=== PATIENT | male | born 1945 | race Caucasian/White ===

== ENCOUNTER 2024-01-12 06:08 | Emergency (ER) | payer OTHER, SELFPAY ==
[2024-01-12] VITALS (9 sets, daily range): BP systolic 106–127; BP diastolic 33–98; PULSE 91–97; RESP 19–30; TEMP 36.4; O2SAT 91–100
--- NOTE | ~2024-01-12 | CT_ITS ---
EXAMINATION: CT lumbar spine wo con DATE: 01/12/2024 07:28 INDICATION: Low back pain TECHNIQUE: Computed tomography (CT) of the lumbar spine was performed without intravenous contrast. T he dose-length product was 1225.89 mGy-cm. Automated exposure control and iterative reconstruction te josé miguel were employed. COMPARISON: None FINDINGS: There is grade 2 spondylolisthesis at L5-S1 secondary to spondylolysis. There is disc narro wing at all lumbar levels with vacuum phenomena at L2-3 and L5-S1. Mild levocurvature of the lumbar s pine. No acute fracture. At L3-4 there is an annular disc bulging with endplate hypertrophy as well as facet hypertrophy causi ng bilateral neural foraminal narrowing. At L4-5 there is annular disc bulging with endplate hypertro phy as well as facet hypertrophy causing central canal and bilateral neural foraminal narrowing. At L 5-S1 there is grade 2 spondylolisthesis with facet hypertrophy causing bilateral neural foraminal hi rowing. IMPRESSION: 1. No acute abnormality of the lumbar spine. 2: Severe lumbar spondylosis with grade 2 spondylolisthesis at L5-S1. Reviewed, dictated and finalized at location A.
[2024-01-12] MEDS: ACETAMINOPHEN 500 MG TABLET 1000 MG PO (07:11)
--- NOTE | 2024-01-12 07:24 | ED.FALL ---
HPI - Fall General Chief Complaint: Fall Stated Complaint: fall, back pain Time Seen by Provider: 01/12/24 06:53 History of Present Illness HPI Narrative: This is a 78-year-old male, with history of PE on 4 L of supplemental oxygen at baseline taking Eliquis and DNR comfort, brought in by EMS from his nursing after a fall with back pain. The patient states he is not sure but he slipped out of bed, landing on his bottom. He complains of low back pain. He denies hitting his head or loss of consciousness. He has no other complaints at this time. Related Data Home Medications Medication Instructions Recorded Confirmed acetaminophen 325 mg tablet 325 mg PO ONCE PRN Pain 01/12/24 apixaban 5 mg tablet (Eliquis) 5 mg PO BID 01/12/24 artificial tears(hypromellose) 0.2 1 drp EACH EYE BID PRN Dry Eye(S) 01/12/24 % eye drops loperamide 2 mg tablet 2 mg PO Q4H PRN constipation 01/12/24 losartan 25 mg tablet 25 mg PO DAILY 01/12/24 Allergies Allergy/AdvReac Type Severity Reaction Status Date / Time azithromycin Allergy Unknown Verified 01/12/24 06:18 Review of Systems Review of Systems: CONSTITUTIONAL: Denies fever, chills, or sweats. ENT: Denies rhinorrhea, congestion, sore throat, or otalgia. CARDIOVASCULAR: Denies chest pain, palpitations, or edema. RESPIRATORY: Denies cough or dyspnea. GASTROINTESTINAL: Denies abdominal pain, nausea, vomiting, or diarrhea. GENITOURINARY: . Denies dysuria or hematuria. SKIN: Denies rash or itching. MUSCULOSKELETAL: Low back pain Denies back pain or myalgia. NEUROLOGIC: Denies headache, numbness, dizziness, or weakness. PSYCHIATRIC: Denies anxiety or depression. PMFSH Past Medical History Medical History Hypertension Pulmonary embolism Supplemental oxygen dependent Surgical History Surgical History No significant past surgical history Social History Social History Smoking status: Never smoker Alcohol intake: never Substance use: never Exam Narrative: GENERAL: Well-developed, well-nourished, and in no acute distress. HEAD: Normocephalic, atraumatic. EYES: PERRLA and EOMI. CHEST: Clear to auscultation. No respiratory distress. No wheezes rales or rhonchi HEART: Regular rate and rhythm. No murmur heard. Normal peripheral pulses. ABDOMEN: Soft, nontender, nondistended, normal active bowel sounds. BACK: Mild midline spine tenderness to palpation at approximately L1 without step-off or crepitus. EXTREMITIES: Normal range of motion. No edema. SKIN: Warm, dry, no rash. NEURO: Alert and oriented x3. No focal deficit. Moving all 4 limbs spontaneously PSYCH: Normal mood and affect. Course Course Emergency Course: 08:10 - CT not concerning for fracture dislocation, though does show degenerative disc disease and spondylosis. The patient is DNR and does not want to have any surgical intervention. Will discharge with pain medications and recommendation for primary care follow-up. I discussed the findings and recommendations with the patient. Discussed return and emergency precautions including signs/symptoms of cauda equina epidural abscess. The patient voiced understanding and agreement with the plan. All questions answered to his satisfaction. Vital Signs Vital signs: Vital Signs Temperature 97.5 F L 01/12/24 06:08 Pulse Rate 93 01/12/24 06:08 Respiratory Rate 19 01/12/24 06:08 Blood Pressure 127/98 H 01/12/24 06:08 Pulse Oximetry 95 01/12/24 06:08 Oxygen Delivery Room Air 01/12/24 06:08 Temperature 97.5 F L 01/12/24 06:08 Pulse Rate 97 01/12/24 07:01 Respiratory Rate 30 H 01/12/24 07:01 Blood Pressure 106/58 L 01/12/24 07:01 Pulse Oximetry 97 01/12/24 07:01 Oxygen Delivery Nasal Cannula 01/12/24 06:36 Oxygen Flow Rate 2 01/12/24 06:36 MDM - Fall
--- NOTE | 2024-01-12 09:15 | PC.NURSE ---
Attempted to call report to [facility] x 3 at [phone] with no answer or option to leave voicemail.
--- NOTE | 2024-01-12 09:17 | PC.NURSE ---
Patient not sent with any [facility]. Unable to locate any additional numbers to call regarding patient's discharge. Patient sleeping comfortably in stretcher at this time.
== END 2024-01-12 10:29 ==
LOC: ANHED 09:05
PROVIDERS: Emergency Provider Preventive Medicine Aerospace Medicine
DX: S39.92XA Unspecified injury of lower back, initial encounter (principal); M47.816 Spondylosis without myelopathy or radiculopathy, lumbar region; M51.36 Other intervertebral disc degeneration, lumbar region; I10 Essential (primary) hypertension; Z66 Do not resuscitate; Z99.81 Dependence on supplemental oxygen; Z86.711 Personal history of pulmonary embolism; Z79.01 Long term (current) use of anticoagulants; W06.XXXA Fall from bed, initial encounter
CPT/HCPCS: 72131; 99284; A9270

== ENCOUNTER 2024-10-01 08:30 | Inpatient (IN) | payer MEDICARE, SELFPAY ==
[2024-10-01] VITALS (15 sets, daily range): BP systolic 90–117; BP diastolic 44–64; PULSE 87–103; RESP 18–27; TEMP 36.6–37.1; O2SAT 92–98; BMI 37.7
--- NOTE | ~2024-10-01 | XR_ITS ---
XR chest 1V portable DATE: 10/04/2024 10:25 INDICATION: Shortness of breath TECHNIQUE: Portable AP chest on 10/04/2024 at 1018 hours COMPARISON: 10/01/2024 AP and lateral chest FINDINGS: Cardiomegaly. There is moderate elevation right diaphragm. There is patchy atelectasis in both lower lung zones. No pleural effusion or pulmonary vascular congestion or pneumothorax is evident. Aortic calcification. DEXA levoscoliosis and degenerative spurring of the thoracic spine. IMPRESSION: Cardiomegaly, aortic atherosclerosis Moderate elevation right diaphragm Bilateral lower lung infiltrate and/or atelectasis, increased since 10/01/2024 Reviewed, dictated and finalized at location A. ATION MONITOR
--- NOTE | ~2024-10-01 | XR_ITS ---
Portable chest x-ray Comparison: 10/04/2024 Clinical History: Shortness of breath Findings: There is left basilar haziness, nonspecific. Right lung clear. Cardiomediastinal silhouet te is stable. Bones and soft tissues are unremarkable. Impression: Left basilar haziness, nonspecific. Correlate for pulmonary edema/atelectasis versus pneumonia. Reviewed, dictated and finalized at [facility]. E BANDER Impression: Left basilar haziness, nonspecific. Correlate for pulmonary edema/atelectasis v ersus pneumonia.
--- NOTE | ~2024-10-01 | XR_ITS ---
EXAMINATION: XR chest 2V DATE: 10/01/2024 09:26 INDICATION: Shortness of breath. TECHNIQUE: Frontal and lateral views of the chest were obtained on 3 radiographs. COMPARISON: None. FINDINGS: There is mild elevation of right hemidiaphragm. There are airspace opacities at the lung ba ses. No pleural effusion or pneumothorax. The heart size is normal. IMPRESSION: 1. Airspace opacities at the lung bases, consistent with atelectasis versus pneumonia. Reviewed, dictated and finalized at location A. UP OPERATOR IMPRESSION: 1. Airspace opacities at the lung bases, consistent with atelectasis versus pne umonia.
--- NOTE | ~2024-10-01 | CT_ITS ---
EXAMINATION: CT cervical spine wo con DATE: 10/01/2024 09:19 INDICATION: Head injury. Fall. TECHNIQUE: Computed tomography (CT) of the cervical spine was performed without intravenous contrast. Automated exposure control and iterative reconstruction technique were employed. The dose-length pro duct was 684.44 mGy-cm. COMPARISON: None FINDINGS: There is 10 degrees levoscoliosis of cervical spine. Vertebral body heights are normal. The re is mildly decreased disc height at C4-C5 and C6-C7. The following disc levels are specifically dis cussed: C2-C3: There is mild bilateral uncovertebral joint osteoarthritis. There is mild bilateral facet join t osteoarthritis. There is mild left neural foraminal stenosis. There is no central canal stenosis. C3-C4: There is moderate right and mild left uncovertebral joint osteoarthritis. There is severe righ t and moderate left facet joint osteoarthritis. There is mild bilateral neural foraminal stenosis. Th ere is mild central canal stenosis. C4-C5: There is severe right and mild left uncovertebral joint osteoarthritis. There is severe bilate ral facet joint osteoarthritis. There is mild right neural foraminal stenosis. There is mild central canal stenosis. C5-C6: There is no uncovertebral joint osteoarthritis. There is moderate right and mild left facet cecil int osteoarthritis. There is mild right neural foraminal stenosis. There is no central canal stenosis . C6-C7: There is mild bilateral uncovertebral joint osteoarthritis. There is severe right and moderate left facet joint osteoarthritis. There is mild right neural foraminal stenosis. There is no central canal stenosis. C7-T1: There is no uncovertebral joint osteoarthritis. There is mild bilateral facet joint osteoarthr itis. There is no neural foraminal stenosis. There is no central canal stenosis. IMPRESSION: 1. No fracture. 2. Mild cervical spondylosis. 3. Cervical levoscoliosis. Reviewed, dictated and finalized at location A. RUBBER
--- NOTE | ~2024-10-01 | CT_ITS ---
EXAMINATION: CT brain wo con DATE: 10/01/2024 09:18 INDICATION: Fall. TECHNIQUE: Computed tomography (CT) of the head was performed without intravenous contrast. The mA wa s adjusted according to patient size. Iterative reconstruction technique was employed. The dose-lengt h product was 605.33 mGy-cm. COMPARISON: None FINDINGS: There are scattered areas of low attenuation in the cerebral white matter. There is no intr acranial hemorrhage, acute infarction, or abnormal intracranial mass lesion. The ventricles are neil l in size. There is mild mucosal thickening in the paranasal sinuses. There are likely changes of ocu lar lens replacement surgeries. The mastoid air cells are normal. There is cerumen in the external au ditory canals. There is a 7 mm subcutaneous mass in the left cheek that may be a sebaceous cyst. IMPRESSION: 1. Moderate nonspecific cerebral white matter disease, which likely represents chronic small vessel i schemic disease. Reviewed, dictated and finalized at location A. ENT CREATION MANAGER IMPRESSION: 1. Moderate nonspecific cerebral white matter disease, which likely represents chronic small vessel ischemic disease.
--- NOTE | 2024-10-01 08:45 | ECG_ITS ---
Test Date: 2024-10-01 08:51:18 Measurements Intervals Tatum Rate: 103 P: 148 MT: 160 QRS: -23 QRSD: 136 T: -15 QT: 342 QTc: 449 Interpretive Statements SINUS TACHYCARDIA WITH OCCASIONAL SUPRAVENTRICULAR PREMATURE COMPLEXES BORDERLINE LEFT AXIS DEVIATION [QRS AXIS < -20] RIGHT BUNDLE BRANCH BLOCK [120+ ms QRS DURATION, UPRIGHT V1, 40+ ms S IN I/aVL/V4/V5/V6] No previous ECG available for comparison Electronically Signed On 10-02-2024 16:29:44 GERMAN TEACHER by Power Nielsen M.D.
--- NOTE | 2024-10-01 08:55 | ED.GENADULT ---
HPI - General Adult General Chief complaint: Fall Stated complaint: fall Time Seen by Provider: 10/01/24 08:44 History of Present Illness HPI narrative: 79-year-old male presents to the emergency department for evaluation for a ground level fall with associated neck pain. Patient also does complain of cough congestion and patient did have a new O2 requirement upon arrival to the emergency department. Patient states he has had cough and congestion for the last 3 days. Patient did not feel this was underlying cause for his fall. Patient states he was attending to stand up and got weak and fell to the ground. Patient denies loss of consciousness. Patient did strike his head. Patient does complain of any neck pain. Related Data Home Medications ?Medication ?Instructions ?Recorded ?Confirmed ?Last Taken ?Type acetaminophen 325 mg tablet 650 mg PO Q4H PRN Pain 01/12/24 10/01/24 Unknown History apixaban 5 mg tablet (Eliquis) 5 mg PO BID 01/12/24 10/01/24 Unknown History artificial tears(hypromellose) 0.2 1 drp EACH EYE TID PRN Dry Eye(S) 01/12/24 10/01/24 Unknown History % eye drops loperamide 2 mg tablet 4 mg PO Q4H PRN constipation 01/12/24 10/01/24 Unknown History losartan 25 mg tablet 25 mg PO DAILY 01/12/24 10/01/24 Unknown History nystatin-triamcinolone 100,000 1 applic topical TID PRN dry feet 10/01/24 10/01/24 Unknown History unit/g-0.1 % topical cream tolnaftate 1 % topical powder 1 applic topical TID PRN adrianna 10/01/24 10/01/24 Unknown History areas Allergies Allergy/AdvReac Type Severity Reaction Status Date / Time azithromycin Allergy Unknown Verified 10/01/24 09:05 Review of Systems Review of Systems: All systems reviewed & are unremarkable except as noted in HPI and below PMFSH Past Medical History Medical History (Updated 10/01/24 @ 13:54 by Anne Narayanan APRN) Hypertension Supplemental oxygen dependent Pulmonary embolism Surgical History Surgical History No significant past surgical history Social History Social History Smoking status: Former smoker Tobacco type: pipe Alcohol intake: never Substance use: never Do You Feel Safe in your Home?: Yes Lack of Transportation: No Lack of Food: Never True Current Housing: I Have Housing Concerned About Future Housing: Decline to Answer Difficulty Paying Gas/Electric Bills: Decline to Answer Difficulty Paying for Meds: Decline to Answer Currently Unemployed: Decline to Answer Education: High School Diploma/GED Difficulty w/ Childcare or Family Care: Decline to Answer Spiritual care concerns: No Exam Narrative: APPEARANCE: Well appearing, no pain, no distress, well-nourished. HEAD: normocephalic, atraumatic. Neck: Posterior neck pain, in C-collar upon arrival to the ED EYES: PERRLA/EOMI, conjunctivae clear. NOSE: Normal no drainage EARS:TMS clear with good light reflex. THROAT: Pharynx clear, no exudate. NECK: Supple. No adenopathy, no masses. RESPIRATORY: Airway patent, respirations nonlabored. Clear to auscultation bilaterally, no rales, rhonchi, wheezing. CARDIOVASCULAR: Regular rate and rhythm without murmurs rubs or gallops. ABDOMINAL: Soft, nontender, nondistended, normal bowel sounds MUSCULOSKELETAL: Moves all extremities. Strength/ROM intact, No edema, No calf tenderness. NEURO: Alert. Cranial nerves II through XII intact. Grossly intact SKIN: Abrasions from fall Course Vital Signs Vital signs: Vital Signs Temperature 98.8 F 10/01/24 08:27 Pulse Rate 100 10/01/24 08:27 Respiratory Rate 25 H 10/01/24 08:27 Blood Pressure 90/64 L 10/01/24 08:27 Pulse Oximetry 93 10/01/24 08:27 Oxygen Delivery Nasal Cannula 10/01/24 08:27 Oxygen Flow Rate 4 10/01/24 08:27 Temperature 97.9 F 10/01/24 16:00 Pulse Rate 99 10/01/24 16:00 Respiratory Rate 20 10/01/24 16:00 Blood Pressure 111/62 10/01/24 16:00 Pulse Oximetry 92 10/01/24 16:00 Oxygen Delivery Nasal Cannula 10/01/24 12:50 Oxygen Flow Rate 3 10/01/24 12:50 Medical Decision Making [facility] Narrative Medical decision making narrative: 79-year-old male present to the emergency department for evaluation for cough and congestion for the last 3 days and a ground level fall this morning. Imaging was negative for acute bleeds. Patient was afebrile but does have a leukocytosis of 13.7 hemoglobin of 15.6. No significant abnormalities on the patient's CMP patient was negative for influenza RSV and for COVID, chest x-ray was concerning for underlying pneumonia. This does clinically correlate. Patient was started on antibiotics in the emergency department. Head and neck CT were negative. Case was discussed with hospitalist patient was accepted for admission. Patient was updated on soles of the workup and was comfortable with plan for admission. Differential Diagnosis Differential Diagnosis: Pneumonia, COVID, RSV, influenza, sodium a tele, subarachnoid hemorrhage, cervical spine fracture Vital Signs Vital Signs: Vital Signs Temperature 98.8 F 10/01/24 08:27 Pulse Rate 100 10/01/24 08:27 Respiratory Rate 25 H 10/01/24 08:27 Blood Pressure 90/64 L 10/01/24 08:27 Pulse Oximetry 93 10/01/24 08:27 Oxygen Delivery Nasal Cannula 10/01/24 08:27 Oxygen Flow Rate 4 10/01/24 08:27 Temperature 97.9 F 10/01/24 16:00 Pulse Rate 99 10/01/24 16:00 Respiratory Rate 20 10/01/24 16:00 Blood Pressure 111/62 10/01/24 16:00 Pulse Oximetry 92 10/01/24 16:00 Oxygen Delivery Nasal Cannula 10/01/24 12:50 Oxygen Flow Rate 3 10/01/24 12:50 Lab Data Lab results reviewed: Yes I reviewed the patient's lab results. 10/01/24 08:49 10/01/24 08:49 Labs: Lab Results 10/01/24 10/01/24 Range/Units 08:49 14:14 WBC 13.7 H (4.5-10.0) K/mm3 RBC 5.00 (4.6-6.20) M/mm3 Hgb 15.6 (14.0-18.0) g/dL Hct 47.9 (42.0-52.0) % MCV 95.8 (80-100) fl MCH 31.2 (26-34) pg MCHC 32.6 (32-36) g/dl RDW 13.6 (11.5-14.5) % Plt Count 247 (150-375) k/mm3 MPV 9.0 (7.4-10.4) fl Immature Gran % (Auto) 0.6 H (0-0.5) % Neut % (Auto) 80.6 H (45.5-73.1) % Lymph % (Auto) 13.2 L (18.3-44.2) % Greenlee % (Auto) 4.1 (2.6-8.5) % Eos % (Auto) 1.2 (0-4.4) % Baso % (Auto) 0.3 (0.2-1.2) % Lymph # (Auto) 1.82 (0.9-3.2) K/mm3 Greenlee # (Auto) 0.6 (0.1-0.6) K/mm3 Eos # (Auto) 0.2 (0-0.3) K/mm3 Baso # (Auto) 0.0 (0.0-0.1) K/mm3 Abs Immat Gran (auto) 0.08 H (0.00-0.031) K/mm3 Absolute Neuts (auto) 11.1 H (1.3-6.7) K/mm3 Absolute Nucleated RBC 0.000 (0.0-0.012) K/mm3 Nucleated RBC % 0.0 (0.0-0.2) % Sodium 138 (137-145) mmol/L Potassium 4.0 (3.4-5.0) mmol/L Chloride 101 (98-107) mmol/L Carbon Dioxide 32 H (22-30) mmol/L Anion Gap 5 (4-12) mmol/L BUN 19 (9-20) mg/dL Creatinine 1.19 (0.7-1.3) mg/dL Estim Creat Clear Calc 54 ml/min Estimated GFR 59 (59 - ) Glucose 132 H (65-110) mg/dL Lactic Acid 2.0 (0.7-2.0) mmol/L Calcium 8.7 (8.4-10.2) mg/dL Total Bilirubin 3.6 H (0.2-1.3) mg/dL AST 22 (17-59) U/L ALT 17 (6-50) U/L Alkaline Phosphatase 121 (38-126) U/L Total Protein 7.0 (6.3-8.2) g/dL Albumin 3.8 (3.5-5.1) g/dL Influenza A (RT-PCR) Negative (Negative) Influenza B (RT-PCR) Negative (Negative) RSV (RT-PCR) Negative (Negative) SARS-CoV-2 RNA (RT-PCR) Negative (Negative) Imaging Data Radiologist's impression: Impressions Head CT 10/01/24 09:28 IMPRESSION: 1. Moderate nonspecific cerebral white matter disease, which likely represents chronic small vessel ischemic disease. Cervical Spine CT 10/01/24 09:32 IMPRESSION: 1. No fracture. 2. Mild cervical spondylosis. 3. Cervical levoscoliosis. Chest X-Ray 10/01/24 09:40 IMPRESSION: 1. Airspace opacities at the lung bases, consistent with atelectasis versus pneumonia. Discharge Plan Discharge Clinical Impression: Pneumonia, Fall, Head injury Patient Disposition: Still a Patient Condition: Serious
[2024-10-01 08:57] LABS: Basophils Percent Auto 0.3 % (0.2-1.2); Eosinophils Absolute Auto 0.2 K/mm3 (0-0.3); Eosinophils Percent Auto 1.2 % (0-4.4); Hematocrit 47.9 % (42.0-52.0); Hemoglobin 15.6 g/dL (14.0-18.0); Immature Granulocyte Absolute 0.08 K/mm3 (0.00-0.031); Immature Granulocyte Percent A 0.6 % (0-0.5); Lymphocytes Absolute Auto 1.82 K/mm3 (0.9-3.2); Lymphocytes Percent Auto 13.2 % (18.3-44.2); Mean Corpuscular HGB Conc 32.6 g/dl (32-36); Mean Corpuscular Hemoglobin 31.2 pg (26-34); Mean Corpuscular Volume 95.8 fl (80-100); Monocytes Absolute Auto 0.6 K/mm3 (0.1-0.6); Monocytes Percent Auto 4.1 % (2.6-8.5); Neutrophils Absolute Auto 11.1 K/mm3 (1.3-6.7); Neutrophils Percent Auto 80.6 % (45.5-73.1); Platelet Count Result 247 k/mm3 (150-375); Red Cell Distribution Width 13.6 % (11.5-14.5); White Blood Count 13.7 K/mm3 (4.5-10.0)
[2024-10-01 09:10] LABS: Alanine Aminotransferase 17 U/L (6-50); Albumin Level 3.8 g/dL (3.5-5.1); Alkaline Phosphatase 121 U/L (38-126); Anion Gap 5 mmol/L (4-12); Aspartate Amino Transferase 22 U/L (17-59); Bilirubin,Total 3.6 mg/dL (0.2-1.3); Blood Urea Nitrogen 19 mg/dL (9-20); Calcium 8.7 mg/dL (8.4-10.2); Carbon Dioxide 32 mmol/L (22-30); Chloride 101 mmol/L (98-107); Estimated CRCL calculation 54 ml/min; Estimated Glomerular Filt Rate 59; Glucose 132 mg/dL (65-110); Sodium 138 mmol/L (137-145)
[2024-10-01 09:53] LABS: Influenza A QL RT-PCR Negative (Negative); Influenza B QL RT-PCR Negative (Negative); RSV RNA, RT-PCR Negative (Negative); SARS-CoV-2 RNA PCR Negative (Negative)
--- NOTE | 2024-10-01 09:54 | PC.NURSE ---
Patient sleepy, but will wake with verbal stimuli.
[2024-10-01] MEDS: levoFLOXacin 750 MG/D5W 150 ML 750 MG/150 ML BAG 100 MG IVPB (11:19)
--- NOTE | 2024-10-01 11:22 | PC.NURSE ---
removed c-collar per provider VORB
--- NOTE | 2024-10-01 12:20 | ADMGEN ---
This patient, Lewis Torrez, was admitted to [facility] Surg Room 332-01. Patient/family oriented to hospital policies and general routines including ID bracelet, bed and alarms, visiting hours, pain management, procedures, bathroom and other care routines, personal items, smoking policy, room service/diet, and visiting hours. Information on how to activate the Rapid Response Team has been discussed. Patient/Family are encouraged to report perceived risks to care and to ask questions if they do not understand what they are told or what they should do.
[2024-10-01] MEDS: ALBUTEROL SULFATE NEB 2.5 MG/3 ML INH INHALATION ×2 (12:50→21:28)
--- NOTE | 2024-10-01 12:57 | P.HP_ITS ---
H&P: HPI History of Present Illness Date/Time: 10/01/24 12:57 Chief Complaint: Fall Narrative: 79-year-old male with history of PE, hypertension and on home oxygen presents the hospital after a fall. Patient also complains cough, congestion for last 3 days and weakness today. Patient states that he hit his head however patient follows consciousness. Patient states that he fell because his legs became weak. Patient denies shortness of breath. In the ED the patient had leukocytosis at 13.7, negative influenza A/B RCA and COVID. Head CT showed no acute process, C-spine CT shows no acute fracture, chest x-ray shows Airspace opacities at the lung bases, consistent with atelectasis versus pneumonia. EKG shows atrial tachycardia with occasional PVCs and right bundle-branch block. Patient was started on Levaquin, blood cultures pending. Review of Systems Review of Systems: 12 systems were reviewed and are negativ e except for as per HPI. [facility] Past Medical History Medical History Hypertension Supplemental oxygen dependent Pulmonary embolism Surgical History Surgical History No significant past surgical history Social History Social History Smoking status: Former smoker Tobacco type: pipe Alcohol intake: never Substance use: never Do You Feel Safe in your Home?: Yes Lack of Transportation: No Lack of Food: Never True Current Housing: I Have Housing Concerned About Future Housing: Decline to Answer Difficulty Paying Gas/Electric Bills: Decline to Answer Difficulty Paying for Meds: Decline to Answer Currently Unemployed: Decline to Answer Education: High School Diploma/GED Difficulty w/ Childcare or Family Care: Decline to Answer Spiritual care concerns: No Meds Home Medications and Allergies Home Medications ?Medication ?Instructions ?Recorded ?Confirmed ?Type acetaminophen 325 mg tablet 650 mg PO Q4H PRN Pain 01/12/24 10/01/24 History apixaban 5 mg tablet (Eliquis) 5 mg PO BID 01/12/24 10/01/24 History artificial tears(hypromellose) 0.2 1 drp EACH EYE TID PRN Dry Eye(S) 01/12/24 10/01/24 History % eye drops lidocaine 5 % topical patch 1 patch topical DAILY #30 ea 01/12/24 10/01/24 Rx loperamide 2 mg tablet 4 mg PO Q4H PRN constipation 01/12/24 10/01/24 History losartan 25 mg tablet 25 mg PO DAILY 01/12/24 10/01/24 History nystatin-triamcinolone 100,000 1 applic topical TID PRN dry feet 10/01/24 10/01/24 History unit/g-0.1 % topical cream tolnaftate 1 % topical powder 1 applic topical TID PRN adrianna 10/01/24 10/01/24 History areas Allergies Allergy/AdvReac Type Severity Reaction Status Date / Time azithromycin Allergy Unknown Verified 10/01/24 09:05 Vital Signs Vital Signs - 24 hr 10/01/24 08:27 10/01/24 08:51 10/01/24 08:53 Temperature 98.8 F Pulse Rate 100 103 H Respiratory Rate 25 H 18 Blood Pressure 90/64 L 96/51 L Pulse Oximetry 93 97 97 Oxygen Delivery Nasal Cannula Nasal Cannula Oxygen Flow Rate 4 4 10/01/24 09:05 10/01/24 09:45 10/01/24 11:00 Temperature Pulse Rate 101 H 99 Respiratory Rate 27 H 22 H Blood Pressure 117/51 L 105/44 L Pulse Oximetry 98 96 95 Oxygen Delivery Nasal Cannula Oxygen Flow Rate 4 10/01/24 11:30 Temperature Pulse Rate 102 H Respiratory Rate 18 Blood Pressure 112/64 Pulse Oximetry 94 Oxygen Delivery Oxygen Flow Rate Exam Narrative: General: well appearing, appears stated age. HEENT: normocephalic, atraumatic. Mucous membranes moist. EOMI, PERRLA, bilateral sclera anicteric, no conjunctival injection. Abrasion to left temporal Neck supple without JVD, lymphadenopathy, or bruit. Respiratory: clear to ascultation bilaterally. No rales/rhonic/wheezes. Cardiovascular: Regular rate and rhythm, normal S1-S2 upon ascultation. No murmurs, rubs, or clicks. PMI is nondisplaced, capillary refill less than 3 second. Abdomen: Soft, round, no pulsatile masses, nondistended and nontender. No rebound, no guarding. No CVA tenderness, no hepatosplenomegaly. Bowel sounds present to all four quadrants. No high pitch or tinkling sounds, resonant to percussion. Extremities: No cyanosis, clubbing, or edema present. Pulses are palpable 2/2. Active ROM to all four extremities. Neuro: Alert and orientated x 4. PERRLA. Cranial nerves 2-12 intact without focal deficit. Skin: Warm, dry, and intact, without rash, erythema, or lesion. Psych: pleasant, cooperative, normal speech, normal affect, no hallucinations, no dysarthia H&P: Results Labs Labs: Short CBC 10/01/24 Range/Units 08:49 WBC 13.7 H (4.5-10.0) K/mm3 Hgb 15.6 (14.0-18.0) g/dL Hct 47.9 (42.0-52.0) % Plt Count 247 (150-375) k/mm3 BMP 10/01/24 08:49 Sodium 138 Potassium 4.0 Chloride 101 Carbon Dioxide 32 H BUN 19 Creatinine 1.19 Glucose 132 H Calcium 8.7 Liver Function 10/01/24 Range/Units 08:49 Total Bilirubin 3.6 H (0.2-1.3) mg/dL AST 22 (17-59) U/L ALT 17 (6-50) U/L Alkaline Phosphatase 121 (38-126) U/L Albumin 3.8 (3.5-5.1) g/dL Assessment and Plan Assessment and plan (1) Fall: Code(s): W19.XXXA - Unspecified fall, initial encounter Status: Acute Assessment and Plan: CT head and C-spine negative for acute injuries PT OT evaluate and treat Pain control and bowel protocol (2) Pneumonia: Code(s): J18.9 - Pneumonia, unspecified organism Status: Acute Assessment and Plan: Levaquin Blood cultures Guaifenesin as needed (3) Hypotension: Code(s): I95.9 - Hypotension, unspecified Status: Acute Assessment and Plan: Improved 1 L fluid bolus IVF (4) Hypertension: Code(s): I10 - Essential (primary) hypertension Status: Acute Assessment and Plan: Holding Losartan re-evaluate morning (5) History of pulmonary embolism: Code(s): Z86.711 - Personal history of pulmonary embolism Status: Acute Assessment and Plan: Continue home Eliquis Quality VTE Prophylaxis VTE prophylaxis: mechanical ordered and pharmacologic ordered Hospitalist MIPS Advance Care Plan I have confirmed that the patient's Advanced Care Plan is present, code status is documented, or surrogate decision maker is listed in patient medical record.: Yes Medication Reconciliation I have utilized all available resources to obtain, update and review the patients current medications (includes all prescriptions, OTC, herbals, cannabis, and nutritional supplements).: Yes
[2024-10-01] MEDS: SODIUM CHLORIDE 0.9% IV 1,000 ML 999 ML IV CONT (14:45)
[2024-10-01] MEDS: SODIUM CHLORIDE 0.9% IV 1,000 ML 125 ML IV CONT ×2 (15:48→23:58)
[2024-10-01] MEDS: APIXABAN 5 MG TABLET PO (16:49)
[2024-10-02] VITALS (12 sets, daily range): BP systolic 101–123; BP diastolic 45–73; PULSE 79–91; RESP 18–20; TEMP 36.6–37; O2SAT 4–98
[2024-10-02] MEDS: ALBUTEROL SULFATE NEB 2.5 MG/3 ML INH INHALATION ×4 (03:53→21:07)
[2024-10-02] MEDS: SODIUM CHLORIDE 0.9% IV 1,000 ML 125 ML IV CONT ×2 (05:54→16:19)
[2024-10-02 06:17] LABS: Basophils Percent Auto 0.2 % (0.2-1.2); Eosinophils Absolute Auto 0.2 K/mm3 (0-0.3); Eosinophils Percent Auto 2.2 % (0-4.4); Hematocrit 39.8 % (42.0-52.0); Hemoglobin 12.7 g/dL (14.0-18.0); Immature Granulocyte Absolute 0.07 K/mm3 (0.00-0.031); Immature Granulocyte Percent A 0.8 % (0-0.5); Lymphocytes Absolute Auto 1.75 K/mm3 (0.9-3.2); Lymphocytes Percent Auto 20.3 % (18.3-44.2); Mean Corpuscular HGB Conc 31.9 g/dl (32-36); Mean Corpuscular Hemoglobin 31.1 pg (26-34); Mean Corpuscular Volume 97.5 fl (80-100); Mean Platelet Volume 9.4 fl (7.4-10.4); Monocytes Absolute Auto 0.5 K/mm3 (0.1-0.6); Neutrophils Absolute Auto 6.1 K/mm3 (1.3-6.7); Neutrophils Percent Auto 70.5 % (45.5-73.1); Platelet Count Result 232 k/mm3 (150-375); Red Blood Count 4.08 M/mm3 (4.6-6.20); Red Cell Distribution Width 13.7 % (11.5-14.5); White Blood Count 8.6 K/mm3 (4.5-10.0)
[2024-10-02 06:38] LABS: Anion Gap 6 mmol/L (4-12); Blood Urea Nitrogen 17 mg/dL (9-20); Calcium 7.4 mg/dL (8.4-10.2); Carbon Dioxide 29 mmol/L (22-30); Chloride 103 mmol/L (98-107); Estimated CRCL calculation 68 ml/min; Estimated Glomerular Filt Rate > 60; Glucose 111 mg/dL (65-110); Potassium 3.6 mmol/L (3.4-5.0); Sodium 138 mmol/L (137-145)
[2024-10-02] MEDS: APIXABAN 5 MG TABLET PO ×2 (08:43→16:19)
[2024-10-02] MEDS: DOCUSATE SODIUM 100 MG CAPSULE PO (08:43)
[2024-10-02] MEDS: ARTIFICIAL TEARS OPHTH SOLN 15 ML BOTTLE 1 DROP EACH EYE ×2 (10:48→20:46)
[2024-10-02] MEDS: levoFLOXacin 750 MG/D5W 150 ML 750 MG/150 ML BAG 100 MG IVPB (10:49)
--- NOTE | 2024-10-02 17:56 | P.PNIM_ITS ---
Progress Note: A&P Assessment and Plan (1) Fall: Code(s): W19.XXXA - Unspecified fall, initial encounter Status: Acute Assessment and Plan: Possibly secondary to deconditioning due to infection vs orthostatic with low BP vs other. CXR with opacities at lung bases. UA not performed. EKG with no ischemic changes. CT head and C-spine negative for acute. Orthostatics ordered. PT OT evaluate and treat Fall precautions. (2) Pneumonia: Code(s): J18.9 - Pneumonia, unspecified organism Status: Acute Assessment and Plan: CXR showing opacities at lung bases. Patient with Leukocytosis on admission. Started on Levaquin and we'll continue. Follow blood cultures. Guaifenesin as needed. (3) Hypotension: Code(s): I95.9 - Hypotension, unspecified Status: Acute Assessment and Plan: Possibly related to infection vs chronic vs other. Improved with fluid bolus and IVF. We'll reduce IVF rate with risk for fluid overload. Monitor BP closely. Hold BP meds for now. (4) Hypertension: Code(s): I10 - Essential (primary) hypertension Status: Acute Assessment and Plan: Hold Losartan with low BP. Monitor closely. (5) History of pulmonary embolism: Code(s): Z86.711 - Personal history of pulmonary embolism Status: Acute Assessment and Plan: Continue home Nishaquis Subjective Date/time seen: 10/02/24 17:56 Patient states he feels alright just awaiting PT to help him ambulate. States he has a cane at home but rarely uses it and his legs just got weak. States he still has intermittent coughs but nothing is coming out. Interval history: Patient on bedrest with intermittent cough episodes, not in any acute distress except for generalized weakness. Review of Systems Review of Systems: 12 systems were reviewed and are negativ e except for as per HPI. All systems reviewed & are unremarkable except as noted in HPI and below Exam Narrative: General: Fair appearing, generalized muscle weakness. HEENT: normocephalic, atraumatic. Mucous membranes moist. EOMI, PERRLA, bilateral sclera anicteric, abrasion to left temporal. Neck supple without JVD. Respiratory: Crackles to bases. Cardiovascular: Regular rate and rhythm, normal S1-S2. No murmurs. Abdomen: Soft, round, nondistended and nontender. Bowel sounds present to all four quadrants. Extremities: No cyanosis, clubbing, or edema present. Pulses are palpable 2/2. Active ROM to all four extremities. Neuro: Alert and orientated x 4. Cranial nerves II-XII grossly intact. Skin: Warm, dry, and intact, without lesion. Bruising to Left-temporal region. Psych: pleasant and cooperative. Objective Data Vital Signs Vital Signs: Vital Signs - 24 hr 10/01/24 21:29 10/01/24 21:30 10/01/24 21:40 Temperature Pulse Rate 89 91 Respiratory Rate 18 18 Blood Pressure Pulse Oximetry 92 Oxygen Delivery Nasal Cannula Oxygen Flow Rate 3 Fraction of Inspired Oxygen 10/01/24 22:00 10/02/24 03:56 10/02/24 06:00 Temperature 98.8 F 98.2 F Pulse Rate 87 84 86 Respiratory Rate 18 18 20 Blood Pressure 108/61 118/57 L Pulse Oximetry 95 4 L Oxygen Delivery Oxygen Flow Rate Fraction of Inspired Oxygen 10/02/24 07:36 10/02/24 07:36 10/02/24 07:43 Temperature Pulse Rate 85 84 Respiratory Rate 20 20 Blood Pressure Pulse Oximetry 92 Oxygen Delivery Nasal Cannula Oxygen Flow Rate 3 Fraction of Inspired Oxygen 32 10/02/24 08:00 10/02/24 08:00 10/02/24 13:16 Temperature 97.9 F Pulse Rate 80 85 Respiratory Rate 20 20 Blood Pressure 123/73 Pulse Oximetry 95 98 Oxygen Delivery Nasal Cannula Oxygen Flow Rate 4 Fraction of Inspired Oxygen 10/02/24 13:25 10/02/24 14:00 10/02/24 14:00 Temperature 98.1 F Pulse Rate 82 91 Respiratory Rate 20 18 Blood Pressure 104/57 L Pulse Oximetry 95 Oxygen Delivery Nasal Cannula Oxygen Flow Rate 3 Fraction of Inspired Oxygen 10/02/24 15:10 Temperature Pulse Rate Respiratory Rate Blood Pressure Pulse Oximetry Oxygen Delivery Nasal Cannula Oxygen Flow Rate 3 Fraction of Inspired Oxygen Intake/Output Intake/Output: Intake & Output 09/29/24 09/30/24 10/01/24 10/02/24 23:59 23:59 23:59 23:59 Intake Total 1860 2641.7 Balance 1860 2641.7 Meds/Results Medications: Active Medications Generic Name Dose Route Start Last Admin Trade Name Freq PRN Reason Stop Dose Admin Acetaminophen 650 mg 10/01/24 13:10 Acetaminophen 325 Mg Tablet PO Q4H PRN Mild Pain (1-3) or Fever Hydrocodone Bitart/Acetaminophen 1 tab 10/01/24 13:10 Hydrocodone/Acetaminophen (*Crx) 5-325 Mg Tablet PO Q4H PRN Moderate Pain (4-6) Albuterol 2.5 mg 10/01/24 14:00 10/02/24 13:16 Albuterol Sulfate Neb 2.5 Mg/3 Ml Inh INHALATION 2.5 mg Q6HRT JOANNA Administration Apixaban 5 mg 10/01/24 17:00 10/02/24 16:19 Apixaban 5 Mg Tablet PO 5 mg BID JOANNA Administration Artificial Tears 1 drop 10/01/24 19:26 10/02/24 10:48 Artificial Tears Ophth Soln 15 Ml Bottle EACH EYE 1 drop TID PRN Administration Dry Eye(S) Docusate Sodium 100 mg 10/02/24 09:00 10/02/24 08:43 Docusate Sodium 100 Mg Capsule PO 100 mg DAILY JOANNA Administration Guaifenesin/Dextromethorphan 10 ml 10/01/24 21:36 Guaifenesin/Dextromethorphan 10 Ml Udc PO Q4H PRN Cough Levofloxacin/Dextrose 750 mg in 150 mls @ 100 mls/hr 10/02/24 11:00 10/02/24 10:49 Levaquin 750 Mg/D5w 150 Ml IVPB 100 mls/hr Q24H JOANNA Administration Sodium Chloride 1,000 mls @ 125 mls/hr 10/01/24 13:55 10/02/24 16:19 Normal Saline Iv IV CONT 125 mls/hr .Q8H JOANNA Administration Radiology Results: ITS Impressions Head CT 10/01/24 09:28 IMPRESSION: 1. Moderate nonspecific cerebral white matter disease, which likely represents chronic small vessel ischemic disease. Cervical Spine CT 10/01/24 09:32 IMPRESSION: 1. No fracture. 2. Mild cervical spondylosis. 3. Cervical levoscoliosis. Chest X-Ray 10/01/24 09:40 IMPRESSION: 1. Airspace opacities at the lung bases, consistent with atelectasis versus pneumonia. Labs Labs: Laboratory Results - last 24 hr 10/02/24 05:41 WBC 8.6 RBC 4.08 L Hgb 12.7 L Hct 39.8 L MCV 97.5 MCH 31.1 MCHC 31.9 L RDW 13.7 Plt Count 232 MPV 9.4 Immature Gran % (Auto) 0.8 H Neut % (Auto) 70.5 Lymph % (Auto) 20.3 Merrick % (Auto) 6.0 Eos % (Auto) 2.2 Baso % (Auto) 0.2 Lymph # (Auto) 1.75 Merrick # (Auto) 0.5 Eos # (Auto) 0.2 Baso # (Auto) 0.0 Abs Immat Gran (auto) 0.07 H Absolute Neuts (auto) 6.1 Absolute Nucleated RBC 0.000 Nucleated RBC % 0.0 Sodium 138 Potassium 3.6 Chloride 103 Carbon Dioxide 29 Anion Gap 6 BUN 17 Creatinine 0.95 Estim Creat Clear Calc 68 Estimated GFR > 60 Glucose 111 H Calcium 7.4 L Quality VTE Prophylaxis VTE prophylaxis: mechanical ordered and pharmacologic ordered Hospitalist MIPS Advance Care Plan I have confirmed that the patient's Advanced Care Plan is present, code status is documented, or surrogate decision maker is listed in patient medical record.: Yes Medication Reconciliation I have utilized all available resources to obtain, update and review the patients current medications (includes all prescriptions, OTC, herbals, cannabis, and nutritional supplements).: Yes
[2024-10-03] VITALS (16 sets, daily range): BP systolic 101–145; BP diastolic 45–96; PULSE 77–121; RESP 16–20; TEMP 36.3–36.9; O2SAT 93–99
[2024-10-03] MEDS: ALBUTEROL SULFATE NEB 2.5 MG/3 ML INH INHALATION ×4 (02:01→20:12)
[2024-10-03] MEDS: SODIUM CHLORIDE 0.9% IV 1,000 ML 75 ML IV CONT (05:52)
[2024-10-03] MEDS: APIXABAN 5 MG TABLET PO ×2 (10:35→17:05)
[2024-10-03] MEDS: DOCUSATE SODIUM 100 MG CAPSULE PO (10:35)
[2024-10-03] MEDS: levoFLOXacin 750 MG/D5W 150 ML 750 MG/150 ML BAG 100 MG IVPB (10:36)
--- NOTE | 2024-10-03 14:04 | P.PNIM_ITS ---
Progress Note: A&P Assessment and Plan (1) Fall: Code(s): W19.XXXA - Unspecified fall, initial encounter Status: Acute Assessment and Plan: Possibly secondary to deconditioning due to infection vs orthostatic with low BP vs other. CXR with opacities at lung bases. UA not performed. EKG with no ischemic changes. CT head and C-spine negative for acute. Orthostatics ordered and still pending. Continue PT/OT treatment Fall precautions. (2) Pneumonia: Code(s): J18.9 - Pneumonia, unspecified organism Status: Acute Assessment and Plan: CXR showing opacities at lung bases. Patient with Leukocytosis on admission but now resolved with abx treatment. Continue Levaquin. Continue to follow blood cultures, NGTD. Guaifenesin as needed. (3) Hypotension: Code(s): I95.9 - Hypotension, unspecified Status: Acute Assessment and Plan: Possibly related to infection vs chronic vs other. Improved with fluid bolus and IVF. We'll reduce IVF rate with risk for fluid overload. Monitor BP closely. Hold BP meds for now. (4) Hypertension: Code(s): I10 - Essential (primary) hypertension Status: Acute Assessment and Plan: Hold Losartan with low BP. Monitor closely. (5) History of pulmonary embolism: Code(s): Z86.711 - Personal history of pulmonary embolism Status: Acute Assessment and Plan: Continue home Nishaquis Plan Continue IV abx, follow blood cultures, PT/OT treatment, fall precautions. DVT PPx: Apixaban. Disposition: SNF Time Spent With Patient Time with patient: 15 - 25 minutes Subjective Date/time seen: 10/03/24 11:04 Patient states he feels alright. States ambulated with PT in the room and did well. States his eyes are always itching and he puts eye drops at the SNF and is requesting some here. States his coughing is improving and his breathing feels much better. Interval history: Patient on bedrest with rare intermittent moist cough episodes, not in any acute distress except for some generalized muscle weakness. Review of Systems Review of Systems: All systems reviewed & are unremarkable except as noted in HPI and below Exam Narrative: General: Fair appearing, generalized muscle weakness. HEENT: normocephalic, atraumatic. Mucous membranes moist. EOMI, PERRLA, bilateral sclera anicteric. Neck supple without JVD. Respiratory: Diminished with faint expiratory wheezes. Cardiovascular: Regular rate and rhythm, normal S1-S2. No murmurs. Abdomen: Soft, round, nondistended and nontender. Bowel sounds present to all four quadrants. Extremities: No cyanosis, clubbing, or edema present. Active ROM. Neuro: Alert and orientated x 4. Cranial nerves II-XII grossly intact. Skin: Warm, dry, and intact, without lesion. Psych: pleasant and cooperative. Objective Data Vital Signs Vital Signs: Vital Signs - 24 hr 10/02/24 15:10 10/02/24 18:11 10/02/24 21:07 Temperature 97.8 F Pulse Rate 79 Respiratory Rate 20 Blood Pressure 101/45 L Pulse Oximetry 97 96 Oxygen Delivery Nasal Cannula Nasal Cannula Oxygen Flow Rate 3 3 10/02/24 21:07 10/02/24 21:15 10/02/24 22:10 Temperature 98.6 F Pulse Rate 79 80 81 Respiratory Rate 20 20 20 Blood Pressure 120/47 L Pulse Oximetry 96 Oxygen Delivery Oxygen Flow Rate 10/03/24 02:03 10/03/24 02:10 10/03/24 02:40 Temperature 98.5 F Pulse Rate 77 77 84 Respiratory Rate 18 18 16 Blood Pressure 123/47 L Pulse Oximetry 95 Oxygen Delivery Oxygen Flow Rate 10/03/24 06:00 10/03/24 06:00 10/03/24 08:29 Temperature 97.8 F 97.9 F Pulse Rate 79 84 83 Respiratory Rate 20 18 18 Blood Pressure 101/45 L 130/47 L Pulse Oximetry 97 96 Oxygen Delivery Oxygen Flow Rate 10/03/24 08:29 10/03/24 08:35 10/03/24 13:56 Temperature Pulse Rate 86 83 Respiratory Rate 18 18 Blood Pressure Pulse Oximetry 94 Oxygen Delivery Nasal Cannula Oxygen Flow Rate 3 10/03/24 14:02 Temperature Pulse Rate 84 Respiratory Rate 18 Blood Pressure Pulse Oximetry Oxygen Delivery Oxygen Flow Rate Intake/Output Intake/Output: Intake & Output 09/30/24 10/01/24 10/02/24 10/03/24 23:59 23:59 23:59 23:59 Intake Total 1860 3657.5 1364.2 Output Total 100 250 Balance 1860 3557.5 1114.2 Meds/Results Medications: Active Medications Generic Name Dose Route Start Last Admin Trade Name Freq PRN Reason Stop Dose Admin Acetaminophen 650 mg 10/01/24 13:10 Acetaminophen 325 Mg Tablet PO Q4H PRN Mild Pain (1-3) or Fever Hydrocodone Bitart/Acetaminophen 1 tab 10/01/24 13:10 Hydrocodone/Acetaminophen (*Crx) 5-325 Mg Tablet PO Q4H PRN Moderate Pain (4-6) Albuterol 2.5 mg 10/01/24 14:00 10/03/24 13:55 Albuterol Sulfate Neb 2.5 Mg/3 Ml Inh INHALATION 2.5 mg Q6HRT JOANNA Administration Apixaban 5 mg 10/01/24 17:00 10/03/24 10:35 Apixaban 5 Mg Tablet PO 5 mg BID JOANNA Administration Artificial Tears 1 drop 10/01/24 19:26 10/02/24 20:46 Artificial Tears Ophth Soln 15 Ml Bottle EACH EYE 1 drop TID PRN Administration Dry Eye(S) Docusate Sodium 100 mg 10/02/24 09:00 10/03/24 10:35 Docusate Sodium 100 Mg Capsule PO 100 mg DAILY JOANNA Administration Guaifenesin/Dextromethorphan 10 ml 10/01/24 21:36 Guaifenesin/Dextromethorphan 10 Ml Udc PO Q4H PRN Cough Levofloxacin/Dextrose 750 mg in 150 mls @ 100 mls/hr 10/02/24 11:00 10/03/24 10:36 Levaquin 750 Mg/D5w 150 Ml IVPB 100 mls/hr Q24H JOANNA Administration Sodium Chloride 1,000 mls @ 75 mls/hr 10/01/24 13:55 10/03/24 05:52 Normal Saline Iv IV CONT 75 mls/hr .[id number] JOANNA Administration Radiology Results: ITS Impressions Head CT 10/01/24 09:28 IMPRESSION: 1. Moderate nonspecific cerebral white matter disease, which likely represents chronic small vessel ischemic disease. Cervical Spine CT 10/01/24 09:32 IMPRESSION: 1. No fracture. 2. Mild cervical spondylosis. 3. Cervical levoscoliosis. Chest X-Ray 10/01/24 09:40 IMPRESSION: 1. Airspace opacities at the lung bases, consistent with atelectasis versus pneumonia. Quality VTE Prophylaxis VTE prophylaxis: mechanical ordered and pharmacologic ordered Hospitalist MIPS Advance Care Plan I have confirmed that the patient's Advanced Care Plan is present, code status is documented, or surrogate decision maker is listed in patient medical record.: Yes Medication Reconciliation I have utilized all available resources to obtain, update and review the patients current medications (includes all prescriptions, OTC, herbals, cannabis, and nutritional supplements).: Yes
[2024-10-04] VITALS (19 sets, daily range): BP systolic 114–136; BP diastolic 59–68; PULSE 74–83; RESP 16–22; TEMP 36.2–37.4; O2SAT 31–99
[2024-10-04 06:40] LABS: Basophils Percent Auto 0.4 % (0.2-1.2); Eosinophils Absolute Auto 0.4 K/mm3 (0-0.3); Eosinophils Percent Auto 5.5 % (0-4.4); Hemoglobin 12.5 g/dL (14.0-18.0); Immature Granulocyte Absolute 0.12 K/mm3 (0.00-0.031); Immature Granulocyte Percent A 1.7 % (0-0.5); Lymphocytes Absolute Auto 1.25 K/mm3 (0.9-3.2); Lymphocytes Percent Auto 18.2 % (18.3-44.2); Mean Corpuscular HGB Conc 32.1 g/dl (32-36); Mean Corpuscular Hemoglobin 30.9 pg (26-34); Mean Corpuscular Volume 96.3 fl (80-100); Monocytes Absolute Auto 0.4 K/mm3 (0.1-0.6); Monocytes Percent Auto 5.5 % (2.6-8.5); Neutrophils Absolute Auto 4.7 K/mm3 (1.3-6.7); Neutrophils Percent Auto 68.7 % (45.5-73.1); Platelet Count Result 255 k/mm3 (150-375); Red Blood Count 4.05 M/mm3 (4.6-6.20); Red Cell Distribution Width 13.7 % (11.5-14.5); White Blood Count 6.9 K/mm3 (4.5-10.0)
[2024-10-04 06:55] LABS: Anion Gap 1 mmol/L (4-12); Blood Urea Nitrogen 7 mg/dL (9-20); Calcium 8.1 mg/dL (8.4-10.2); Carbon Dioxide 35 mmol/L (22-30); Chloride 103 mmol/L (98-107); Estimated CRCL calculation 74 ml/min; Estimated Glomerular Filt Rate > 60; Glucose 98 mg/dL (65-110); Potassium 3.5 mmol/L (3.4-5.0); Sodium 139 mmol/L (137-145)
[2024-10-04] MEDS: ALBUTEROL SULFATE NEB 2.5 MG/3 ML INH INHALATION ×3 (07:47→20:10)
--- NOTE | 2024-10-04 08:02 | PCRCNOTE ---
Upon entering room this RT started assessing the patient prior to starting his scheduled breathing treatment. Patient was found on room while asleep and the nasal cannula was around his neck. RT asked patient if he was supposed to be wearing oxygen and he sleepily said I don't know. RT placed pulse ox on patient's finger and SpO2 with a good pleth was reading 31%. RT placed back on oxygen of 2L and patient's SpO2 slowly started to come up. Patient's SpO2 reached 92% on 2L and RT finished assessment. Patient's respirations were 20 with HR @ 78 and breathsounds were diminished with expiratory wheezes bilaterally. Patient was never in distress. Post breathing treatment assessment was HR 80 respirations 20 and breathsounds still diminished with expiratory wheezes bilaterally. SpO2 @ this time was 99%. Breathing treatment was ran with 8L O2 plus the patient had on his 2L NC. RN aware of entire encounter.
[2024-10-04] MEDS: levoFLOXacin 750 MG/D5W 150 ML 750 MG/150 ML BAG 100 MG IVPB (10:20)
[2024-10-04] MEDS: APIXABAN 5 MG TABLET PO ×2 (10:20→17:42)
--- NOTE | 2024-10-04 14:11 | PCRCNOTE ---
Again, prior to scheduled breathing treatment this RT found patient asleep on room air, nasal cannula hung up on the wall by flowmeter, with an SpO2 reading of 64%. Woke patient up and got him talking and he came up to 87% on room air. Patient states he does not normally wear oxygen @ home. Patient's O2 sat came up to 92% on 2L, breathsounds diminished but clear, HR 79, and respirations 20. Patient, in this RT's opinion, will at least need tested for oxygen for @ night. Will notify RN of finding again and suggestion.
--- NOTE | 2024-10-04 14:15 | P.PNIM_ITS ---
Progress Note: A&P Assessment and Plan (1) Fall: Code(s): W19.XXXA - Unspecified fall, initial encounter Status: Acute Assessment and Plan: Possibly secondary to deconditioning due to infection vs orthostatic with low BP vs other. CXR with opacities at lung bases. UA not performed. EKG with no ischemic changes. CT head and C-spine negative for acute. Orthostatics normal. Continue PT/OT treatment Fall precautions. (2) Pneumonia: Code(s): J18.9 - Pneumonia, unspecified organism Status: Acute Assessment and Plan: CXR showing opacities at lung bases. Repeat CXR 10/04: Bilateral lower lung infiltrate and/or atelectasis, increased since 10/01/2024. Patient with Leukocytosis on admission but now resolved with abx treatment. Continue Levaquin. Continue scheduled albuterol updrafts. Continue to follow blood cultures, NGTD. Mucinex ordered. Guaifenesin PRN. IS ordered and we'll encourage use. (3) Hypotension: Code(s): I95.9 - Hypotension, unspecified Status: Acute Assessment and Plan: Possibly related to infection vs chronic vs other. Improved with fluid bolus and IVF hydration. Currently trending wnl. We'll discontinue IVF. Continue to monitor BP closely. Hold BP meds for now. (4) Hypertension: Code(s): I10 - Essential (primary) hypertension Status: Acute Assessment and Plan: Continue to hold Losartan with episodes of low BP. Monitor closely. (5) History of pulmonary embolism: Code(s): Z86.711 - Personal history of pulmonary embolism Status: Acute Assessment and Plan: Continue home Eliquis Plan Continue IV abx, follow blood cultures, PT/OT treatment, fall precautions. DVT PPx: Apixaban. Disposition: [facility] Time Spent With Patient Time with patient: 15 - 25 minutes Subjective Date/time seen: 10/04/24 14:15 Interval history: Patient on bedrest with some rare intermittent moist cough episodes, not in any acute distress but with generalized muscle weakness. Review of Systems Review of Systems: All systems reviewed & are unremarkable except as noted in HPI and below Exam Narrative: General: Fair appearing, generalized muscle weakness. HEENT: normocephalic, atraumatic. Mucous membranes moist. EOMI, PERRLA, bilateral sclera anicteric. Neck supple without JVD. Respiratory: Diminished with faint expiratory wheezes. Cardiovascular: Regular rate and rhythm, normal S1-S2. No murmurs. Abdomen: Soft, round, nondistended and nontender. Bowel sounds present to all four quadrants. Extremities: No cyanosis, clubbing, or edema present. Active ROM. Neuro: Alert and orientated x 4. Cranial nerves II-XII grossly intact. Skin: Warm, dry, and intact, without lesion. Psych: pleasant and cooperative. Objective Data Vital Signs Vital Signs: Vital Signs - 24 hr 10/03/24 15:59 10/03/24 15:59 10/03/24 16:02 Temperature 98.5 F 98.5 F 98.2 F Pulse Rate 91 91 99 Respiratory Rate 16 16 16 Blood Pressure 135/87 135/87 115/66 Pulse Oximetry 98 98 93 Oxygen Delivery Oxygen Flow Rate Fraction of Inspired Oxygen 10/03/24 16:06 10/03/24 20:12 10/03/24 20:18 Temperature 98.1 F Pulse Rate 121 H 79 Respiratory Rate 18 18 Blood Pressure 128/96 H Pulse Oximetry 99 97 Oxygen Delivery Nasal Cannula Oxygen Flow Rate 2 Fraction of Inspired Oxygen 10/03/24 20:22 10/03/24 22:08 10/04/24 00:16 Temperature 97.4 F L 98.7 F Pulse Rate 81 82 76 Respiratory Rate 18 20 16 Blood Pressure 145/61 H 114/59 L Pulse Oximetry 98 95 Oxygen Delivery Oxygen Flow Rate Fraction of Inspired Oxygen 10/04/24 05:36 10/04/24 07:45 10/04/24 07:47 Temperature 97.1 F L Pulse Rate 78 Respiratory Rate 22 H Blood Pressure 136/68 Pulse Oximetry 91 31 L 92 Oxygen Delivery Room Air Nasal Cannula Oxygen Flow Rate 2 Fraction of Inspired Oxygen 21 10/04/24 07:47 10/04/24 08:00 10/04/24 08:00 Temperature Pulse Rate 78 80 Respiratory Rate 20 20 Blood Pressure Pulse Oximetry 99 Oxygen Delivery Nasal Cannula Oxygen Flow Rate 2 Fraction of Inspired Oxygen 10/04/24 08:00 10/04/24 08:28 10/04/24 10:40 Temperature 98.2 F Pulse Rate 78 76 Respiratory Rate 17 Blood Pressure 135/61 Pulse Oximetry 97 97 94 Oxygen Delivery Nasal Cannula Room Air Oxygen Flow Rate 3 Fraction of Inspired Oxygen 10/04/24 12:40 10/04/24 14:05 10/04/24 14:08 Temperature 98.8 F Pulse Rate 78 Respiratory Rate 16 Blood Pressure 114/60 Pulse Oximetry 91 64 L 92 Oxygen Delivery Room Air Nasal Cannula Oxygen Flow Rate 2 Fraction of Inspired Oxygen 21 10/04/24 14:08 10/04/24 14:15 Temperature Pulse Rate 79 74 Respiratory Rate 20 20 Blood Pressure Pulse Oximetry Oxygen Delivery Oxygen Flow Rate Fraction of Inspired Oxygen Intake/Output Intake/Output: Intake & Output 10/01/24 10/02/24 10/03/24 10/04/24 23:59 23:59 23:59 23:59 Intake Total 1860 3657.5 1884.2 1480 Output Total 100 250 Balance 1860 3557.5 1634.2 1480 Meds/Results Medications: Active Medications Generic Name Dose Route Start Last Admin Trade Name Freq PRN Reason Stop Dose Admin Acetaminophen 650 mg 10/01/24 13:10 Acetaminophen 325 Mg Tablet PO Q4H PRN Mild Pain (1-3) or Fever Hydrocodone Bitart/Acetaminophen 1 tab 10/01/24 13:10 Hydrocodone/Acetaminophen (*Crx) 5-325 Mg Tablet PO Q4H PRN Moderate Pain (4-6) Albuterol 2.5 mg 10/01/24 14:00 10/04/24 14:08 Albuterol Sulfate Neb 2.5 Mg/3 Ml Inh INHALATION 2.5 mg Q6HRT JOANNA Administration Apixaban 5 mg 10/01/24 17:00 10/04/24 10:20 Apixaban 5 Mg Tablet PO 5 mg BID JOANNA Administration Artificial Tears 1 drop 10/01/24 19:26 10/02/24 20:46 Artificial Tears Ophth Soln 15 Ml Bottle EACH EYE 1 drop TID PRN Administration Dry Eye(S) Artificial Tears 1 drop 10/03/24 14:05 Artificial Tears Ophth Soln 15 Ml Bottle EACH EYE QID PRN Dry Eye(s) Docusate Sodium 100 mg 10/02/24 09:00 10/04/24 10:21 Docusate Sodium 100 Mg Capsule PO Not Given DAILY JAONNA Guaifenesin/Dextromethorphan 10 ml 10/01/24 21:36 Guaifenesin/Dextromethorphan 10 Ml Udc PO Q4H PRN Cough Levofloxacin/Dextrose 750 mg in 150 mls @ 100 mls/hr 10/02/24 11:00 10/04/24 10:20 Levaquin 750 Mg/D5w 150 Ml IVPB 100 mls/hr Q24H JOANNA Administration Sodium Chloride 1,000 mls @ 75 mls/hr 10/01/24 13:55 10/03/24 05:52 Normal Saline Iv IV CONT 75 mls/hr .[id number] JOANNA Administration Radiology Results: ITS Impressions Head CT 10/01/24 09:28 IMPRESSION: 1. Moderate nonspecific cerebral white matter disease, which likely represents chronic small vessel ischemic disease. Cervical Spine CT 10/01/24 09:32 IMPRESSION: 1. No fracture. 2. Mild cervical spondylosis. 3. Cervical levoscoliosis. Chest X-Ray 10/04/24 10:27 IMPRESSION: Cardiomegaly, aortic atherosclerosis Moderate elevation right diaphragm Bilateral lower lung infiltrate and/or atelectasis, increased since 10/01/2024 Labs Labs: Laboratory Results - last 24 hr 10/04/24 05:55 WBC 6.9 RBC 4.05 L Hgb 12.5 L Hct 39.0 L MCV 96.3 MCH 30.9 MCHC 32.1 RDW 13.7 Plt Count 255 MPV 9.0 Immature Gran % (Auto) 1.7 H Neut % (Auto) 68.7 Lymph % (Auto) 18.2 L [place] % (Auto) 5.5 Eos % (Auto) 5.5 H Baso % (Auto) 0.4 Lymph # (Auto) 1.25 [place] # (Auto) 0.4 Eos # (Auto) 0.4 H Baso # (Auto) 0.0 Abs Immat Gran (auto) 0.12 H Absolute Neuts (auto) 4.7 Absolute Nucleated RBC 0.000 Nucleated RBC % 0.0 Sodium 139 Potassium 3.5 Chloride 103 Carbon Dioxide 35 H Anion Gap 1 L BUN 7 L D Creatinine 0.86 Estim Creat Clear Calc 74 Estimated GFR > 60 Glucose 98 Calcium 8.1 L Quality VTE Prophylaxis VTE prophylaxis: mechanical ordered and pharmacologic ordered Hospitalist MIPS Advance Care Plan I have confirmed that the patient's Advanced Care Plan is present, code status is documented, or surrogate decision maker is listed in patient medical record.: Yes Medication Reconciliation I have utilized all available resources to obtain, update and review the patients current medications (includes all prescriptions, OTC, herbals, cannabis, and nutritional supplements).: Yes
--- NOTE | 2024-10-04 16:51 | PCRCNOTE ---
RT checked on patient to assess SpO2 reading. Patient was again asleep but this time still on the 2L NC. Patient's O2 was 86% on the 2L. RT titrated to 3L and SpO2 came up to 91%. RT then called Sara Duval [employer]NA[employer] and notified him of everything from today and discussed an Apnea Link. Apnea being ordered for [facility] screening [facility] 10/04/24.
[2024-10-04] MEDS: guaiFENesin 12 HR 600 MG TABCR PO ×2 (17:42→20:31)
[2024-10-05] VITALS (13 sets, daily range): BP systolic 106–140; BP diastolic 50–68; PULSE 71–96; RESP 14–20; TEMP 36.1–37.3; O2SAT 90–96
--- NOTE | 2024-10-05 03:36 | PCRCNOTE ---
Patient did not receive 0200 updraft treatment due to being on an apnea link. Treatment to resume at 0800.
[2024-10-05] MEDS: APIXABAN 5 MG TABLET PO ×2 (08:43→16:17)
[2024-10-05] MEDS: guaiFENesin 12 HR 600 MG TABCR PO ×2 (08:44→20:50)
[2024-10-05] MEDS: DOCUSATE SODIUM 100 MG CAPSULE PO (08:44)
[2024-10-05] MEDS: ALBUTEROL SULFATE NEB 2.5 MG/3 ML INH INHALATION ×3 (09:58→21:11)
[2024-10-05] MEDS: levoFLOXacin 750 MG/D5W 150 ML 750 MG/150 ML BAG 100 MG IVPB (11:32)
--- NOTE | 2024-10-05 17:48 | P.PNIM_ITS ---
Progress Note: A&P Assessment and Plan (1) Fall: Code(s): W19.XXXA - Unspecified fall, initial encounter Status: Acute Assessment and Plan: Possibly secondary to deconditioning due to infection vs orthostatic with low BP vs other. CXR with possible opacities at lung bases. UA not performed. EKG with no ischemic changes. CT head and C-spine negative for acute. Orthostatics normal. Continue PT/OT treatment Fall precautions. (2) Pneumonia: Code(s): J18.9 - Pneumonia, unspecified organism Status: Acute Assessment and Plan: CXR showing possible opacities at lung bases. Repeat CXR 10/04: Bilateral lower lung infiltrate and/or atelectasis, increased since 10/01/2024. Patient with Leukocytosis on admission but now resolved with abx treatment. Continue IV Levaquin. Continue scheduled albuterol updrafts. Continue to follow blood cultures, NGTD. Mucinex ordered. Guaifenesin PRN. IS ordered and pt encourage with use. (3) Hypotension: Code(s): I95.9 - Hypotension, unspecified Status: Acute Assessment and Plan: Possibly related to infection vs chronic vs other. Improved with fluid bolus and IVF hydration. Currently trending wnl. Discontinued IVF. Continue to monitor BP closely. Continue to hold BP meds. (4) Hypertension: Code(s): I10 - Essential (primary) hypertension Status: Acute Assessment and Plan: Continue to hold Losartan with pt's of low BP. Monitor closely. (5) History of pulmonary embolism: Code(s): Z86.711 - Personal history of pulmonary embolism Status: Acute Assessment and Plan: Continue home Eliquis Plan Continue IV abx, follow blood cultures, PT/OT treatment, fall precautions. DVT PPx: Apixaban. Disposition: [facility] Time Spent With Patient Time with patient: 15 - 25 minutes Subjective Date/time seen: 10/05/24 10:48 Patient states he feels alright and his breathing is much better. States not coughing much. Interval history: Patient calm on bedrest and looks to be in no acute distress. Review of Systems Review of Systems: 12 systems were reviewed and are negativ e except for as per HPI. All systems reviewed & are unremarkable except as noted in HPI and below Exam Narrative: General: Fair appearing, generalized muscle weakness. HEENT: normocephalic, atraumatic. Mucous membranes moist. EOMI, PERRLA, bilateral sclera anicteric. Neck supple without JVD. Respiratory: Diminished and clear. Cardiovascular: Regular rate and rhythm, normal S1-S2. No murmurs. Abdomen: Soft, round, nondistended and nontender. Bowel sounds present to all four quadrants. Extremities: No cyanosis, clubbing, or edema present. Active ROM. Neuro: Alert and orientated x 4. Cranial nerves II-XII grossly intact. Skin: Warm, dry, and intact, without lesion. Psych: pleasant and cooperative. Objective Data Vital Signs Vital Signs: Vital Signs - 24 hr 10/04/24 20:00 10/04/24 20:00 10/04/24 20:10 Temperature 98.1 F Pulse Rate 83 78 Respiratory Rate 20 20 Blood Pressure 129/66 Pulse Oximetry 98 96 Oxygen Delivery Nasal Cannula Oxygen Flow Rate 2 Fraction of Inspired Oxygen 10/04/24 20:32 10/04/24 20:33 10/04/24 22:55 Temperature Pulse Rate 75 Respiratory Rate 20 Blood Pressure Pulse Oximetry 96 91 Oxygen Delivery Nasal Cannula Room Air Oxygen Flow Rate 2 Fraction of Inspired Oxygen 28 21 10/05/24 00:00 10/05/24 04:00 10/05/24 07:51 Temperature 97.0 F L 97.0 F L 98.8 F Pulse Rate 77 79 77 Respiratory Rate 14 14 17 Blood Pressure 118/50 L 140/68 129/54 L Pulse Oximetry 91 90 95 Oxygen Delivery Oxygen Flow Rate Fraction of Inspired Oxygen 10/05/24 08:45 10/05/24 09:59 10/05/24 09:59 Temperature Pulse Rate 93 Respiratory Rate 20 Blood Pressure Pulse Oximetry 94 92 Oxygen Delivery Nasal Cannula Nasal Cannula Oxygen Flow Rate 2 2 Fraction of Inspired Oxygen 10/05/24 10:12 10/05/24 12:28 10/05/24 14:40 Temperature 98.1 F Pulse Rate 96 84 77 Respiratory Rate 20 17 20 Blood Pressure 106/65 Pulse Oximetry 93 Oxygen Delivery Oxygen Flow Rate Fraction of Inspired Oxygen 10/05/24 14:45 10/05/24 16:56 Temperature 99.1 F Pulse Rate 72 75 Respiratory Rate 20 17 Blood Pressure 121/67 Pulse Oximetry 94 Oxygen Delivery Oxygen Flow Rate Fraction of Inspired Oxygen Intake/Output Intake/Output: Intake & Output 10/02/24 10/03/24 10/04/24 10/05/24 23:59 23:59 23:59 23:59 Intake Total 3657.5 1884.2 2420 705 Output Total 100 250 100 Balance 3557.5 1634.2 2320 705 Meds/Results Medications: Active Medications Generic Name Dose Route Start Last Admin Trade Name Freq PRN Reason Stop Dose Admin Acetaminophen 650 mg 10/01/24 13:10 Acetaminophen 325 Mg Tablet PO Q4H PRN Mild Pain (1-3) or Fever Hydrocodone Bitart/Acetaminophen 1 tab 10/01/24 13:10 Hydrocodone/Acetaminophen (*Crx) 5-325 Mg Tablet PO Q4H PRN Moderate Pain (4-6) Albuterol 2.5 mg 10/01/24 14:00 10/05/24 14:40 Albuterol Sulfate Neb 2.5 Mg/3 Ml Inh INHALATION 2.5 mg Q6HRT JOANNA Administration Apixaban 5 mg 10/01/24 17:00 10/05/24 16:17 Apixaban 5 Mg Tablet PO 5 mg BID JOANNA Administration Artificial Tears 1 drop 10/01/24 19:26 10/02/24 20:46 Artificial Tears Ophth Soln 15 Ml Bottle EACH EYE 1 drop TID PRN Administration Dry Eye(S) Artificial Tears 1 drop 10/03/24 14:05 Artificial Tears Ophth Soln 15 Ml Bottle EACH EYE QID PRN Dry Eye(s) Docusate Sodium 100 mg 10/02/24 09:00 10/05/24 08:44 Docusate Sodium 100 Mg Capsule PO 100 mg DAILY JOANNA Administration Guaifenesin 600 mg 10/04/24 14:25 10/05/24 08:44 Guaifenesin 12 Hr 600 Mg Tabcr PO 600 mg Q12HR JOANNA Administration Guaifenesin/Dextromethorphan 10 ml 10/01/24 21:36 Guaifenesin/Dextromethorphan 10 Ml Udc PO Q4H PRN Cough Levofloxacin/Dextrose 750 mg in 150 mls @ 100 mls/hr 10/02/24 11:00 10/05/24 13:02 Levaquin 750 Mg/D5w 150 Ml IVPB Infused Q24H JOANNA Infusion Radiology Results: ITS Impressions Head CT 10/01/24 09:28 IMPRESSION: 1. Moderate nonspecific cerebral white matter disease, which likely represents chronic small vessel ischemic disease. Cervical Spine CT 10/01/24 09:32 IMPRESSION: 1. No fracture. 2. Mild cervical spondylosis. 3. Cervical levoscoliosis. Chest X-Ray 10/04/24 10:27 IMPRESSION: Cardiomegaly, aortic atherosclerosis Moderate elevation right diaphragm Bilateral lower lung infiltrate and/or atelectasis, increased since 10/01/2024 Quality VTE Prophylaxis VTE prophylaxis: mechanical ordered and pharmacologic ordered Hospitalist MIPS Advance Care Plan I have confirmed that the patient's Advanced Care Plan is present, code status is documented, or surrogate decision maker is listed in patient medical record.: Yes Medication Reconciliation I have utilized all available resources to obtain, update and review the patients current medications (includes all prescriptions, OTC, herbals, cannabis, and nutritional supplements).: Yes
[2024-10-06] VITALS (15 sets, daily range): BP systolic 102–146; BP diastolic 43–82; PULSE 68–96; RESP 14–20; TEMP 36.1–36.7; O2SAT 91–96
[2024-10-06] MEDS: ALBUTEROL SULFATE NEB 2.5 MG/3 ML INH INHALATION ×4 (02:34→21:10)
[2024-10-06] MEDS: APIXABAN 5 MG TABLET PO ×2 (09:12→16:20)
[2024-10-06] MEDS: DOCUSATE SODIUM 100 MG CAPSULE PO (09:12)
[2024-10-06] MEDS: guaiFENesin 12 HR 600 MG TABCR PO ×2 (09:12→20:37)
[2024-10-06] MEDS: levoFLOXacin 750 MG/D5W 150 ML 750 MG/150 ML BAG 100 MG IVPB (10:41)
--- NOTE | 2024-10-06 14:29 | P.PNIM_ITS ---
Progress Note: A&P Assessment and Plan (1) Fall: Code(s): W19.XXXA - Unspecified fall, initial encounter Status: Acute Assessment and Plan: Possibly secondary to deconditioning due to infection vs orthostatic with low BP vs other. Initial CXR with possible opacities at lung bases. UA not performed. EKG with no ischemic changes. CT head and C-spine negative for acute. Orthostatics normal. Continue PT/OT treatment Fall precautions. (2) Pneumonia: Code(s): J18.9 - Pneumonia, unspecified organism Status: Acute Assessment and Plan: CXR showing possible opacities at lung bases. Repeat CXR 10/04: Bilateral lower lung infiltrate and/or atelectasis, increased since 10/01/2024. Repeat CXR 10/06: Left basilar haziness, nonspecific. Correlate for pulmonary edema/atelectasis versus pneumonia. Leukocytosis resolved. Continue IV Levaquin for now. Continue scheduled albuterol updrafts. Continue to follow blood cultures, NGTD. Mucinex ordered. Guaifenesin PRN. IS ordered and pt encourage with use. (3) Hypotension: Code(s): I95.9 - Hypotension, unspecified Status: Acute Assessment and Plan: Possibly related to infection vs chronic vs other. Improved with fluid bolus and IVF hydration. Currently trending wnl. IVF stopped. Continue to monitor BP closely. Losartan restarted. (4) Hypertension: Code(s): I10 - Essential (primary) hypertension Status: Acute Assessment and Plan: Losartan restarted. Monitor closely. (5) History of pulmonary embolism: Code(s): Z86.711 - Personal history of pulmonary embolism Status: Acute Assessment and Plan: Continue home Eliquis (6) Acute hypoxic respiratory failure: Code(s): J96.01 - Acute respiratory failure with hypoxia Status: Acute Assessment and Plan: - Likely related to PNA vs atelectasis vs other. - Currently on 3L/NC for sats > 90 %. - Wean O2 as selvin for sats > 90 %. - Overnight apnea eval showing average PO2 86 % on RA. - Patient will need supplemental O2 @3L/NC overnight. - Home O2 eval ordered. Plan Respiratory to perform home O2 eval and pt desat's easily on RA. Continue IV abx, follow blood cultures, PT/OT treatment, fall precautions. DVT PPx: Apixaban. Disposition: SNF when stable. Time Spent With Patient Time with patient: 15 - 25 minutes Subjective Date/time seen: 10/06/24 12:29 Patient states he feels alright and has no complaints. Denies pain or other distressful symptoms. Interval history: Patient comfortable on chair and looks to be in no acute distress. Review of Systems Review of Systems: 12 systems were reviewed and are negativ e except for as per HPI. All systems reviewed & are unremarkable except as noted in HPI and below Exam Narrative: General: Fair appearing, generalized muscle weakness. HEENT: normocephalic, atraumatic. Mucous membranes moist. EOMI, PERRLA, bilateral sclera anicteric. Neck supple without JVD. Respiratory: Crackles to left base. Cardiovascular: Regular rate and rhythm, normal S1-S2. No murmurs. Abdomen: Soft, round, nondistended and nontender. Bowel sounds present to all four quadrants. Extremities: No cyanosis, clubbing, or edema present. Active ROM. Neuro: Fairly well orientated. Cranial nerves II-XII grossly intact. Skin: Warm, dry, and intact, without lesion. Psych: pleasant and cooperative. Objective Data Vital Signs Vital Signs: Vital Signs - 24 hr 10/05/24 14:40 10/05/24 14:45 10/05/24 16:56 Temperature 99.1 F Pulse Rate 77 72 75 Respiratory Rate 20 20 17 Blood Pressure 121/67 Pulse Oximetry 94 Oxygen Delivery Oxygen Flow Rate Fraction of Inspired Oxygen 10/05/24 20:00 10/05/24 20:00 10/05/24 21:11 Temperature 97.5 F L Pulse Rate 72 Respiratory Rate 14 Blood Pressure 132/59 L Pulse Oximetry 96 96 96 Oxygen Delivery Nasal Cannula Nasal Cannula Oxygen Flow Rate 2 2 Fraction of Inspired Oxygen 28 10/05/24 21:11 10/05/24 21:18 10/06/24 00:00 Temperature 97.0 F L Pulse Rate 71 73 88 Respiratory Rate 20 20 14 Blood Pressure 116/58 L Pulse Oximetry 93 Oxygen Delivery Oxygen Flow Rate Fraction of Inspired Oxygen 10/06/24 02:34 10/06/24 02:40 10/06/24 06:00 Temperature 97.7 F Pulse Rate 73 70 79 Respiratory Rate 18 18 14 Blood Pressure 146/82 H Pulse Oximetry 91 Oxygen Delivery Oxygen Flow Rate Fraction of Inspired Oxygen 10/06/24 07:29 10/06/24 07:29 10/06/24 07:37 Temperature Pulse Rate 74 68 Respiratory Rate 18 18 Blood Pressure Pulse Oximetry 96 Oxygen Delivery Nasal Cannula Oxygen Flow Rate 2 Fraction of Inspired Oxygen 10/06/24 09:10 10/06/24 13:58 10/06/24 14:04 Temperature Pulse Rate 74 79 Respiratory Rate 18 18 Blood Pressure Pulse Oximetry 94 Oxygen Delivery Nasal Cannula Oxygen Flow Rate 2 Fraction of Inspired Oxygen Intake/Output Intake/Output: Intake & Output 10/03/24 10/04/24 10/05/24 10/06/24 23:59 23:59 23:59 23:59 Intake Total 1884.2 2420 1495 465 Output Total 250 100 300 Balance 1634.2 2320 0405 465 Meds/Results Medications: Active Medications Generic Name Dose Route Start Last Admin Trade Name Freq PRN Reason Stop Dose Admin Acetaminophen 650 mg 10/01/24 13:10 Acetaminophen 325 Mg Tablet PO Q4H PRN Mild Pain (1-3) or Fever Hydrocodone Bitart/Acetaminophen 1 tab 10/01/24 13:10 Hydrocodone/Acetaminophen (*Crx) 5-325 Mg Tablet PO Q4H PRN Moderate Pain (4-6) Albuterol 2.5 mg 10/01/24 14:00 10/06/24 13:57 Albuterol Sulfate Neb 2.5 Mg/3 Ml Inh INHALATION 2.5 mg Q6HRT JOANNA Administration Apixaban 5 mg 10/01/24 17:00 10/06/24 09:12 Apixaban 5 Mg Tablet PO 5 mg BID JOANNA Administration Artificial Tears 1 drop 10/01/24 19:26 10/02/24 20:46 Artificial Tears Ophth Soln 15 Ml Bottle EACH EYE 1 drop TID PRN Administration Dry Eye(S) Artificial Tears 1 drop 10/03/24 14:05 Artificial Tears Ophth Soln 15 Ml Bottle EACH EYE QID PRN Dry Eye(s) Docusate Sodium 100 mg 10/02/24 09:00 10/06/24 09:12 Docusate Sodium 100 Mg Capsule PO 100 mg DAILY JOANNA Administration Guaifenesin 600 mg 10/04/24 14:25 10/06/24 09:12 Guaifenesin 12 Hr 600 Mg Tabcr PO 600 mg Q12HR JOANNA Administration Guaifenesin/Dextromethorphan 10 ml 10/01/24 21:36 Guaifenesin/Dextromethorphan 10 Ml Udc PO Q4H PRN Cough Levofloxacin/Dextrose 750 mg in 150 mls @ 100 mls/hr 10/02/24 11:00 10/06/24 10:41 Levaquin 750 Mg/D5w 150 Ml IVPB 100 mls/hr Q24H JOANNA Administration Radiology Results: ITS Impressions Head CT 10/01/24 09:28 IMPRESSION: 1. Moderate nonspecific cerebral white matter disease, which likely represents chronic small vessel ischemic disease. Cervical Spine CT 10/01/24 09:32 IMPRESSION: 1. No fracture. 2. Mild cervical spondylosis. 3. Cervical levoscoliosis. Chest X-Ray 10/06/24 06:29 Impression: Left basilar haziness, nonspecific. Correlate for pulmonary edema/atelectasis versus pneumonia. Quality VTE Prophylaxis VTE prophylaxis: mechanical ordered and pharmacologic ordered Hospitalist MIPS Advance Care Plan I have confirmed that the patient's Advanced Care Plan is present, code status is documented, or surrogate decision maker is listed in patient medical record.: Yes Medication Reconciliation I have utilized all available resources to obtain, update and review the patients current medications (includes all prescriptions, OTC, herbals, cannabis, and nutritional supplements).: Yes
[2024-10-07] VITALS (14 sets, daily range): BP systolic 102–132; BP diastolic 52–65; PULSE 74–84; RESP 18–20; TEMP 36.4–36.9; O2SAT 88–97
[2024-10-07] MEDS: ALBUTEROL SULFATE NEB 2.5 MG/3 ML INH INHALATION ×4 (02:40→20:04)
[2024-10-07] MEDS: APIXABAN 5 MG TABLET PO ×2 (08:35→17:33)
[2024-10-07] MEDS: guaiFENesin 12 HR 600 MG TABCR PO ×2 (08:35→20:35)
[2024-10-07] MEDS: levoFLOXacin 750 MG TABLET PO (08:35)
[2024-10-07] MEDS: DOCUSATE SODIUM 100 MG CAPSULE PO (08:35)
--- NOTE | 2024-10-07 12:15 | P.PNIM_ITS ---
Progress Note: A&P Assessment and Plan (1) Fall: Code(s): W19.XXXA - Unspecified fall, initial encounter Status: Acute Assessment and Plan: Possibly secondary to deconditioning due to infection vs orthostatic with low BP vs other. Initial CXR with possible opacities at lung bases. UA not performed. EKG with no ischemic changes. CT head and C-spine negative for acute issues Orthostatics normal. Continue PT/OT treatment Fall precautions. (2) Pneumonia: Code(s): J18.9 - Pneumonia, unspecified organism Status: Acute Assessment and Plan: CXR showing possible opacities at lung bases. Repeat CXR 10/04: Bilateral lower lung infiltrate and/or atelectasis, increased since 10/01/2024. Repeat CXR 10/06: Left basilar haziness, nonspecific. Correlate for pulmonary edema/atelectasis versus pneumonia. Leukocytosis resolved. Continue IV Levaquin for now. Continue scheduled albuterol updrafts. Continue to follow blood cultures, NGTD. Mucinex ordered. Guaifenesin PRN. IS ordered and pt encourage with use. (3) Hypotension: Code(s): I95.9 - Hypotension, unspecified Status: Acute Assessment and Plan: Possibly related to infection vs chronic vs other. Improved with fluid bolus and IVF hydration. Currently trending wnl. IVF stopped. Continue to monitor BP closely. Losartan restarted. reviewed-stable (4) Hypertension: Code(s): I10 - Essential (primary) hypertension Status: Acute Assessment and Plan: Losartan restarted. Monitor closely. (5) History of pulmonary embolism: Code(s): Z86.711 - Personal history of pulmonary embolism Status: Acute Assessment and Plan: Continue home Eliquis (6) Acute hypoxic respiratory failure: Code(s): J96.01 - Acute respiratory failure with hypoxia Status: Acute Assessment and Plan: - Likely related to PNA vs atelectasis vs other. - Currently on 3L/NC for sats > 90 %. - Wean O2 as selvin for sats > 90 %. - Overnight apnea eval showing average PO2 86 % on RA. - Patient will need supplemental O2 @3L/NC overnight. - Home O2 eval ordered. Plan Respiratory to perform home O2 eval and pt desat's easily on RA. Continue IV abx, follow blood cultures, PT/OT treatment, fall precautions. DVT PPx: Apixaban. Disposition: SNF when stable and placement found Time Spent With Patient Time with patient: 25 - 35 minutes Subjective Date/time seen: 10/07/24 12:15 Interval history: Patient comfortable. working with PT/OT, care coordination on placement. pt denies chest pian, n/v/d. Review of Systems Review of Systems: 12 systems were reviewed and are negativ e except for as per HPI. All systems reviewed & are unremarkable except as noted in HPI and below Exam Narrative: General: Fair appearing, generalized muscle weakness. HEENT: normocephalic, atraumatic. Mucous membranes moist. EOMI, PERRLA, bilateral sclera anicteric. Neck supple without JVD. Respiratory: Crackles to left base. Cardiovascular: Regular rate and rhythm, normal S1-S2. No murmurs. Abdomen: Soft, round, nondistended and nontender. Bowel sounds present to all four quadrants. Extremities: No cyanosis, clubbing, or edema present. Active ROM. Neuro: Fairly well orientated. Cranial nerves II-XII grossly intact. Skin: Warm, dry, and intact, without lesion. Psych: pleasant and cooperative. Objective Data Vital Signs Vital Signs: Vital Signs - 24 hr 10/06/24 13:58 10/06/24 14:00 10/06/24 14:04 Temperature 97.5 F L Pulse Rate 74 96 79 Respiratory Rate 18 20 18 Blood Pressure 104/56 L Pulse Oximetry 95 Oxygen Delivery Oxygen Flow Rate 10/06/24 20:00 10/06/24 21:10 10/06/24 21:15 Temperature Pulse Rate 78 Respiratory Rate 18 Blood Pressure Pulse Oximetry 95 94 Oxygen Delivery Nasal Cannula Nasal Cannula Oxygen Flow Rate 2 3 10/06/24 21:20 10/06/24 22:00 10/07/24 02:40 Temperature 98.1 F Pulse Rate 77 77 75 Respiratory Rate 18 20 18 Blood Pressure 102/43 L Pulse Oximetry 94 Oxygen Delivery Oxygen Flow Rate 10/07/24 03:00 10/07/24 06:00 10/07/24 07:35 Temperature 97.6 F Pulse Rate 75 81 76 Respiratory Rate 18 18 18 Blood Pressure 132/57 L Pulse Oximetry 92 97 Oxygen Delivery Nasal Cannula Oxygen Flow Rate 3 10/07/24 07:35 10/07/24 07:45 10/07/24 08:35 Temperature Pulse Rate 76 78 Respiratory Rate 20 20 Blood Pressure Pulse Oximetry 97 Oxygen Delivery Nasal Cannula Oxygen Flow Rate 2 Intake/Output Intake/Output: Intake & Output 10/04/24 10/05/24 10/06/24 10/07/24 23:59 23:59 23:59 23:59 Intake Total 2420 1495 1355 340 Output Total 100 300 100 Balance 2320 1195 1355 240 Meds/Results Medications: Active Medications Generic Name Dose Route Start Last Admin Trade Name Freq PRN Reason Stop Dose Admin Acetaminophen 650 mg 10/01/24 13:10 Acetaminophen 325 Mg Tablet PO Q4H PRN Mild Pain (1-3) or Fever Hydrocodone Bitart/Acetaminophen 1 tab 10/01/24 13:10 Hydrocodone/Acetaminophen (*Crx) 5-325 Mg Tablet PO Q4H PRN Moderate Pain (4-6) Albuterol 2.5 mg 10/01/24 14:00 10/07/24 07:35 Albuterol Sulfate Neb 2.5 Mg/3 Ml Inh INHALATION 2.5 mg Q6HRT JOANNA Administration Apixaban 5 mg 10/01/24 17:00 10/07/24 08:35 Apixaban 5 Mg Tablet PO 5 mg BID JOANNA Administration Artificial Tears 1 drop 10/01/24 19:26 10/02/24 20:46 Artificial Tears Ophth Soln 15 Ml Bottle EACH EYE 1 drop TID PRN Administration Dry Eye(S) Artificial Tears 1 drop 10/03/24 14:05 Artificial Tears Ophth Soln 15 Ml Bottle EACH EYE QID PRN Dry Eye(s) Docusate Sodium 100 mg 10/02/24 09:00 10/07/24 08:35 Docusate Sodium 100 Mg Capsule PO 100 mg DAILY JOANNA Administration Guaifenesin 600 mg 10/04/24 14:25 10/07/24 08:35 Guaifenesin 12 Hr 600 Mg Tabcr PO 600 mg Q12HR JOANNA Administration Guaifenesin/Dextromethorphan 10 ml 10/01/24 21:36 Guaifenesin/Dextromethorphan 10 Ml Udc PO Q4H PRN Cough Levofloxacin 750 mg 10/07/24 09:00 10/07/24 08:35 Levofloxacin 750 Mg Tablet PO 10/08/24 09:01 750 mg DAILY JOANNA Administration Radiology Results: ITS Impressions Head CT 10/01/24 09:28 IMPRESSION: 1. Moderate nonspecific cerebral white matter disease, which likely represents chronic small vessel ischemic disease. Cervical Spine CT 10/01/24 09:32 IMPRESSION: 1. No fracture. 2. Mild cervical spondylosis. 3. Cervical levoscoliosis. Chest X-Ray 10/06/24 06:29 Impression: Left basilar haziness, nonspecific. Correlate for pulmonary edema/atelectasis versus pneumonia. Quality VTE Prophylaxis VTE prophylaxis: mechanical ordered and pharmacologic ordered
[2024-10-08] VITALS (9 sets, daily range): BP systolic 95–100; BP diastolic 38–50; PULSE 74–92; RESP 16–20; TEMP 36.4–36.6; O2SAT 93–96
[2024-10-08] MEDS: ALBUTEROL SULFATE NEB 2.5 MG/3 ML INH INHALATION ×3 (02:17→13:46)
[2024-10-08] MEDS: levoFLOXacin 750 MG TABLET PO (08:32)
[2024-10-08] MEDS: DOCUSATE SODIUM 100 MG CAPSULE PO (08:32)
[2024-10-08] MEDS: APIXABAN 5 MG TABLET PO ×2 (08:32→17:11)
[2024-10-08] MEDS: guaiFENesin 12 HR 600 MG TABCR PO (08:32)
[2024-10-08 11:58] LABS: Hematocrit 39.8 % (42.0-52.0); Hemoglobin 12.9 g/dL (14.0-18.0); Mean Corpuscular HGB Conc 32.4 g/dl (32-36); Mean Corpuscular Hemoglobin 31.4 pg (26-34); Mean Corpuscular Volume 96.8 fl (80-100); Mean Platelet Volume 8.7 fl (7.4-10.4); Platelet Count Result 251 k/mm3 (150-375); Red Blood Count 4.11 M/mm3 (4.6-6.20); White Blood Count 6.5 K/mm3 (4.5-10.0)
[2024-10-08 12:07] LABS: Anion Gap 2 mmol/L (4-12); Blood Urea Nitrogen 13 mg/dL (9-20); Calcium 8.4 mg/dL (8.4-10.2); Carbon Dioxide 37 mmol/L (22-30); Chloride 99 mmol/L (98-107); Estimated CRCL calculation 66 ml/min; Estimated Glomerular Filt Rate > 60; Glucose 114 mg/dL (65-110); Potassium 3.6 mmol/L (3.4-5.0); Sodium 138 mmol/L (137-145)
--- NOTE | 2024-10-08 13:09 | PM.DS ---
DS: Admitting Diagnosis Discharge Date 10/08 Admitting Diagnosis cough, weakness, fall DS: Discharge Diagnosis Discharge Diagnosis (1) Fall: Code(s): W19.XXXA - Unspecified fall, initial encounter Status: Acute (2) Pneumonia: Code(s): J18.9 - Pneumonia, unspecified organism Status: Acute (3) Hypotension: Code(s): I95.9 - Hypotension, unspecified Status: Acute (4) Hypertension: Code(s): I10 - Essential (primary) hypertension Status: Acute (5) History of pulmonary embolism: Code(s): Z86.711 - Personal history of pulmonary embolism Status: Acute (6) Acute hypoxic respiratory failure: Code(s): J96.01 - Acute respiratory failure with hypoxia Status: Acute DS: Summary Hospital Course Hospital Course: 79-year-old male with history of PE, hypertension and on home oxygen presents the hospital after a fall. Patient also complains cough, congestion for last 3 days and weakness today. Patient states that he hit his head however patient follows consciousness. Patient states that he fell because his legs became weak. Patient denies shortness of breath. In the ED the patient had leukocytosis at 13.7, negative influenza A/B RCA and COVID. Head CT showed no acute process, C-spine CT shows no acute fracture, chest x-ray shows Airspace opacities at the lung bases, consistent with atelectasis versus pneumonia. EKG shows atrial tachycardia with occasional PVCs and right bundle-branch block. Patient was started on Levaquin, blood cultures pending. Several issues were addressed: # fall Possibly secondary to deconditioning due to infection vs orthostatic with low BP vs other. Initial CXR with possible opacities at lung bases. UA not performed. EKG with no ischemic changes. CT head and C-spine negative for acute issues Orthostatics normal. Continue PT/OT treatment Fall precautions. # pneumonia CXR 10/01/ showing possible opacities at lung bases. Repeat CXR 10/04: Bilateral lower lung infiltrate and/or atelectasis, increased since 10/01/2024. Repeat CXR 10/06: Left basilar haziness, nonspecific. Correlate for pulmonary edema/atelectasis versus pneumonia. Leukocytosis resolved. Continue IV Levaquin for now. Continue scheduled albuterol updrafts. Continue to follow blood cultures, NGTD. Mucinex ordered. Guaifenesin PRN. IS ordered and pt encourage with use. # hypotension Possibly related to infection vs chronic vs other. Improved with fluid bolus and IVF hydration. Currently trending wnl. IVF stopped. Continue to monitor BP closely. Losartan restarted. resolved # acute resp failure Likely related to PNA vs atelectasis vs other. - Currently on 3L/NC for sats > 90 %. - Wean O2 as selvin for sats > 90 %. - Overnight apnea eval showing average PO2 86 % on RA. - Patient will need supplemental O2 @3L/NC overnight. - Home O2 eval ordered. Status at Discharge Functional status at discharge: wheelchair bound Overall status at discharge: patient is progressing back to baseline Time Spent with Patient Time attestation: Total time spent providing and/or coordinating discharge services: Time spent: Greater than 30 minutes Exam Narrative: General: Fair appearing, generalized muscle weakness. HEENT: normocephalic, atraumatic. Mucous membranes moist. EOMI, PERRLA, bilateral sclera anicteric. Neck supple without JVD. Respiratory: Crackles to left base. Cardiovascular: Regular rate and rhythm, normal S1-S2. No murmurs. Abdomen: Soft, round, nondistended and nontender. Bowel sounds present to all four quadrants. Extremities: No cyanosis, clubbing, or edema present. Active ROM. Neuro: Fairly well orientated. Cranial nerves II-XII grossly intact. Skin: Warm, dry, and intact, without lesion. Psych: pleasant and cooperative. DS: Data Data Completed and Pending Labs on day of discharge: Labs from last 24 hours 10/08/24 11:53 WBC 6.5 RBC 4.11 L Hgb 12.9 L Hct 39.8 L MCV 96.8 MCH 31.4 MCHC 32.4 RDW 14.0 Plt Count 251 MPV 8.7 Sodium 138 Potassium 3.6 Chloride 99 Carbon Dioxide 37 H Anion Gap 2 L BUN 13 D Creatinine 0.97 Estim Creat Clear Calc 66 Estimated GFR > 60 Glucose 114 H Calcium 8.4 Discharge Plan Discharge Attending physician on discharge: Miguel Patel Discharging Clinician: Alina Rayo [facility] Activity: may shower Diet: as tolerated and heart healthy Patient Instructions: Antibiotic Form, Apixaban (By mouth) Patient Language: [place] Stand Alone Forms: General Discharge Information Follow-up/Referrals: Shonna,MD Toribio [Primary Care Provider] - 2 Weeks Discharge Medications: Continued acetaminophen 325 mg Tablet 650 mg PO Q4H PRN (Reason: Pain) loperamide 2 mg Tablet 4 mg PO Q4H PRN (Reason: constipation) Rx Instructions: administer after each loose stool until symptoms controlled; do not exceed 8 mg per 24 hrs losartan 25 mg Tablet 25 mg PO DAILY artificial tears(hypromellose) 0.2 % Drops 1 drp EACH EYE TID PRN (Reason: Dry Eye(S)) Eliquis 5 mg Tablet 5 mg PO BID lidocaine 5 % adhesive patch,medicated 1 patch topical DAILY Qty: 30 0RF Rx Instructions: leave on most painful area for up to 12 hrs tolnaftate 1 % powder 1 applic topical TID PRN (Reason: adrianna areas) nystatin-triamcinolone 100,000-0.1 unit/g-% cream 1 applic topical TID PRN (Reason: dry feet) Date of admission: 10/01/24 14:38 Primary Care Provider: ShonnaToribio Admitting Provider: Carolyn De La Vega Attending physician on admission: Carolyn De La Vega Condition: Serious Quality VTE Prophylaxis VTE prophylaxis: mechanical ordered and pharmacologic ordered Hospitalist MIPS Heart Failure (Exclusion) Patient has history of Heart Transplant or Left Ventricular Assistive Device?: No IF YES, STOP HERE Heart Failure (Qualifier) Patient has current or prior documentation of LVEF less than or equal to 40%, or mod/servere depressed LVSF?: No IF NO, STOP HERE
== END 2024-10-08 18:35 | DRG 193 ==
LOC: ANHED 10:46 → ANH3MEDSUR 11:54
PROVIDERS: Nurse Practitioner Adult Health; Nurse Practitioner Gerontology; Admitting Provider Internal Medicine; Emergency Provider Emergency Medicine; PCP Internal Medicine; Visit Provider Nurse Practitioner
DX: J18.9 Pneumonia, unspecified organism (principal); J96.00 Acute respiratory failure, unspecified whether with hypoxia or hypercapnia; I95.9 Hypotension, unspecified; I10 Essential (primary) hypertension; W19.XXXA Unspecified fall, initial encounter; Z86.711 Personal history of pulmonary embolism; Z99.81 Dependence on supplemental oxygen; Z87.891 Personal history of nicotine dependence; Z20.822 Contact with and (suspected) exposure to COVID-19; Z79.01 Long term (current) use of anticoagulants
CPT/HCPCS: 36415; 70450; 71045; 71046; 72125; 80048; 80053; 83605; 85025; 85027; 87040; 87637; 93005; 94640; 94762; 96361; 96365; 97110; 97161; 97165; 97530; 97535; 99285; A9270; G0378; J1956; J7030

== ENCOUNTER 2025-07-19 13:42 | Inpatient (IN) | payer MEDICARE, SELFPAY ==
--- OUTSIDE RECORDS SUMMARY | 2010-06-12 05:30 | XMS_ITS | Continuity of Care Document ---
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 Role Phone Gerry Gaitan Unavailable Unavailable Procedures Procedure Date Office/outpatient Visit, Est Office/outpatient Visit, Est Office/outpatient Visit, Est Eye Exam & Treatment Office/outpatient Visit, Est Eye Exam Established Pt Advance Directives Directive Yes / No Effective Date File Name No Information Encounters Encounter Description Practice Location Reason(s) For Visit Diagnoses Date Provider Providers Copied on Encounter Office[place]pat [place], [facility] [place] [address] [place] [address] [address], [place], [place], [id number], tel:[phone] [facility] No Information May- 0-201 0 Kandy Garrett. [address] [facility] [place] , [address], [place], [place], [facility], [place]. tel:[phone] Office[place]pat [place], [facility] [place] [id number] [place] [address] [address], [place], [place], [id number], [place] tel:[phone] SEC [facility] No Information 9-201 0 Kandy Garrett. [address] [facility] , [address], [place], [place], [facility], [place]. tel:[phone] Office[place]pat [place], [facility] [place] [address] [place] [address] [address], [place], [place], [id number], [place] tel:[phone] [facility] No Information [address]. [facility] , [address], [place], [place], [facility], . tel:[phone] [facility], [address] [place] [address] [address], [place], [place], [id number], [place] tel:[phone] [facility] No Information [address]. [address] [facility] [address], [address], [place], [place], [facility], . tel:[phone] Office/outpat ient Visit, [facility], [address] [place] [address] [address], [place], [place], [id number], tel:[phone] [facility] No Information [address] Kandy [address]. [facility] [address], [address], [place], [place], [facility], [place]. tel:[phone] [facility], [address] [place] [address] [address], [place], [place], [id number], tel:[phone] [facility] No Information 0 5[address] Kandy Garrett. [address] [place], [place] [address]ate [address]uro Giordano, [address], [place], [place], [facility], . tel:[phone] Family History Family Member Type Diagnosis Age At Onset No Information Payers Payer name Insurance type Covered democrat ID Authoriza tion(s) No Information Social History Type Description Quantity Date Captured Comments Sex Male Smoking Status No Information Chief Complaint And Reason For Visit No Information Reason For Referral Reason For Referral No Information History Of Present Illness Encounter Date Complaint History Of Prese nt Illness No Information Functional Status Date Functional Assessmen t No Information Instructions Date Instruction Additional Infor mation No Information Assessments Type Assessment Date No Information Patient Care Teams Name Effective Dates (start - stop) Status Members No Information
[2025-07-19] VITALS (16 sets, daily range): BP systolic 80–111; BP diastolic 43–65; PULSE 82–102; RESP 18–22; TEMP 36.8–37.5; O2SAT 94–100; BMI 32.1; BMI 32.4
--- NOTE | ~2025-07-19 | CT_ITS ---
EXAMINATION: CT brain wo funmi, 07/19/2025 15:20 CDT HISTORY: confusion COMPARISON: No comparisons available. Technique: Axial images obtained of the brain without contrast. One or more of the following dose reduction techniques were used: automated exposure control, adjustment of the mA and/or kV according to patient size, use of iterative reconstruction technique. Findings: No acute infarct or parenchymal hemorrhage. No abnormal mass or mass effect. No midline shift. No extra-axial fluid collections. No hydrocephalus. Mastoid air cells unremarkable. Sinuses and orbits unremarkable. No acute fracture. No significant facial or scalp soft tissue swelling evident. No radiopaque foreign body is seen. Impression: 1.No acute intracranial abnormality. Reviewed, dictated and finalized at location P. Impression: 1.No acute intracranial abnormality.
--- NOTE | ~2025-07-19 | CT_ITS ---
EXAMINATION: CT abdomen pelvis w con DATE: 07/19/2025 16:16 INDICATION: Lower abdominal pain TECHNIQUE: Computed tomography (CT) of the abdomen and pelvis was performed with 100 mL Omnipaque-350 intravenous contrast. Automated exposure control and iterative reconstruction technique were employed. The dose-length product was 1458.52 mGy-cm. COMPARISON: None FINDINGS: Basilar and dependent atelectasis in the bilateral lower lungs. Cardiomegaly. Atherosclerotic coronary artery calcific location. No pericardial or pleural effusion. Liver, pancreas, bilateral adrenal glands and kidneys are normal. Mild haziness to the fat surrounding the nondilated gallbladder. There are 6 hypodense splenic lesions measuring up to 3.0 cm. Fluid throughout the colon consistent with nonspecific diarrhea. Mild sigmoid diverticulosis without adjacent from trace stranding to suggest diverticulitis. Normal appendix. No bowel obstruction. Inflammatory stranding the right lower quadrant as well as mild wall thickening of a few loops of distal ileum in the right lower quadrant consistent with an ileitis but which appears to spare the terminal ileum. Also right lower quadrant within the ileocolic mesentery is a 12.6 x 6.7 x 9.0 cm mass with lobular and spiculated margins which is concerning for malignancy. Bladder is normal. No abscess or free intraperitoneal gas or fluid. There are several mildly enlarged infrarenal left periaortic lymph nodes measuring up to 1.4 cm in maximal short axis diameter. Moderate to severe lumbar and lower thoracic spondylosis. 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 There are multiple small lytic lesions scattered throughout the visualized spine, unclear whether related to prominent spotty osteopenia, multiple myeloma or other metastatic disease. IMPRESSION: 1. To 0.6 x 6.7 x 9.0 cm mass centered in the right lower quadrant ileocolic mesentery which is concerning for malignancy either primary such as desmoid tumor, metastatic such as carcinoid or colon cancer or lymphoma. 2. Mild wall thickening of a few loops of distal ileum in the right lower quadrant with some surrounding inflammatory stranding consistent with a localized ileitis which could be infectious, inflammatory or ischemic etiology or potentially related to portal venous congestion secondary to the base noted mesenteric mass. 3. 6 hypodense masses in the spleen which could be malignant either metastatic disease or lymphoma, infection including granulomatous disease or hemangiomas. 4. Cardiomegaly. 5. Few mildly prominent left periaortic lymph nodes similarly suspicious for metastatic disease or lymphoma. 6. Numerous tiny lytic bone lesions throughout the visualized spine which could be due to study osteopenia, multiple myeloma or metastatic disease. Reviewed, dictated and finalized at location A. IMPRESSION: 1. To 0.6 x 6.7 x 9.0 cm mass centered in the right lower quadrant ileocolic me sentery which is concerning for malignancy either primary such as desmoid tumor , metastatic such as carcinoid or colon cancer or lymphoma. 2. Mild wall thickening of a few loops of distal ileum in the right lower quadr ant with some surrounding inflammatory stranding consistent with a localized il eitis which could be infectious, inflammatory or ischemic etiology or potential ly related to portal venous congestion secondary to the base noted mesenteric m ass. 3. 6 hypodense masses in the spleen which could be malignant either metastatic disease or lymphoma, infection including granulomatous disease or hemangiomas. 4. Cardiomegaly. 5. Few mildly prominent left periaortic lymph nodes similarly suspicious for me tastatic disease or lymphoma. 6. Numerous tiny lytic bone lesions throughout the visualized spine which could be due to study osteopenia, multiple myeloma or metastatic disease.
--- NOTE | ~2025-07-19 | US_ITS ---
BILATERAL LOWER EXTREMITY VENOUS DUPLEX Clinical History: Lower extremity edema, malignancy . Comparison: None. Technique: Grayscale, color, duplex/spectral Doppler sonography bilateral lower extremities. Findings/impression: Left le. Possible DVT in posterior tibial veins. Patient unable to tolerate compression to verify. Peroneal also not visualized. 2. No [id number] DVT. Right le. No DVT. Reviewed, dictated and finalized at location R.
--- NOTE | ~2025-07-19 | XR_ITS ---
Clinical history:Weakness EXAM:X-ray chest one view portable TECHNIQUE:A single portable AP supine frontal image of the chest was obtained. Comparisons:10/06/2024 FINDINGS: Cardiomediastinal silhouette is enlarged, unchanged. No pneumothorax. No pleural effusion. No free air under the diaphragm. Small to moderate-sized patchy opacities scattered throughout both lungs. IMPRESSION: 1. Small to moderate-sized patchy opacities scattered throughout both lungs. Differential includes but is not limited to edema or pneumonia. Recommend follow-up to resolution. Reviewed, dictated and finalized at location Q. IMPRESSION: 1. Small to moderate-sized patchy opacities scattered throughout both lungs. Di fferential includes but is not limited to edema or pneumonia. Recommend follow- up to resolution.
--- NOTE | 2025-07-19 13:57 | ECG_ITS ---
Test Date: 2025-07-19 13:50:25 Measurements Intervals [place] Rate: 96 P: 28 WV: 157 QRS: -17 QRSD: 137 T: -15 QT: 349 QTc: 442 Interpretive Statements SINUS RHYTHM RIGHT BUNDLE BRANCH BLOCK BASELINE ARTIFACT- I, III, AVR, AVL ABNORMAL ECG Compared to ECG 10/01/2024 08:51:18 HEART RATE HAS DECREASED Electronically Signed On 07-19-2025 14:16:20 CDT by Amos Saravia D.O.
[2025-07-19] MEDS: LACTATED RINGERS 1,000 ML 999 ML IV CONT ×2 (14:05→15:25)
--- NOTE | 2025-07-19 14:44 | ED.AMS ---
HPI - Altered Mental Status General Chief Complaint: Altered Mental Status Stated Complaint: lethargic Time Seen by Provider: 07/19/25 14:10 Source: patient, EMS, RN notes reviewed and old records reviewed Mode of arrival: EMS History of Present Illness HPI narrative: THis is an 80 year old male who presents from a nursing facility for evaluation of lethargy and confusion. HE is oriented to person but we do not know his baseline. He denies chest pain, shortness of breath or any pain. Patient has been found to be hypotensive so EMS start fluid bolus and patient has received 300 ml so far. He has history of PE And he takes eliquis. Related Data Home Medications ?Medication ?Instructions ?Recorded ?Confirmed ?Last Taken ?Type acetaminophen 325 mg tablet 650 mg PO Q4H PRN Pain 01/12/24 07/19/25 Unknown History apixaban 5 mg tablet (Eliquis) 5 mg PO BID 01/12/24 07/19/25 07/19/25 History artificial tears(hypromellose) 0.2 1 drp EACH EYE TID PRN Dry Eye(S) 01/12/24 07/19/25 Unknown History % eye drops loperamide 2 mg tablet 4 mg PO Q4H PRN constipation 01/12/24 07/19/25 Unknown History losartan 25 mg tablet 25 mg PO DAILY 01/12/24 07/19/25 07/19/25 History nystatin-triamcinolone 100,000 1 applic topical TID PRN dry feet 10/01/24 07/19/25 Unknown History unit/g-0.1 % topical cream senna-docusate sodium tablet 1 tablet PO TID PRN constipation 07/19/25 07/19/25 Unknown History Allergies Allergy/AdvReac Type Severity Reaction Status Date / Time azithromycin Allergy Unknown Verified 07/19/25 21:48 [facility] Past Medical History Medical History Gait instability Bilateral hearing loss Dysphagia Chronic constipation Cognitive communication disorder Hypertension Supplemental oxygen dependent Pulmonary embolism Surgical History Surgical History No significant past surgical history Social History Social History (Updated 07/19/25 @ 20:50 by Kelly Larsen DO) Social History: The patient has resided at [facility] since May 2022. He is . 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 Code status: DNR/DNI (per longterm paperwork and ER provider verified with the patient's son who is his POA) Financial and Healthcare power of deputy prosecuting attorney: Evan Shan Smoking status: Former smoker Tobacco type: pipe Alcohol intake: never Substance use: never Do You Feel Safe in your Home?: Yes Lack of Transportation: No Lack of Food: Never True Current Housing: I Have Housing Concerned About Future Housing: Decline to Answer Difficulty Paying Gas/Electric Bills: Decline to Answer Difficulty Paying for Meds: Decline to Answer Currently Unemployed: Decline to Answer Education: High School Diploma/GED Difficulty w/ Childcare or Family Care: Decline to Answer Spiritual care concerns: No Exam Const: General: alert and ill appearing Limitations: altered mental status HENMT: Mouth: Yes dry mucous membranes Throat: uvula midline Other: dry cracked lips Eyes: EOM: EOMs intact bilaterally Chest: Chest palpation & inspection: normal inspection of the chest Resp: Effort & Inspection: normal respiratory effort Auscultation: clear to auscultation bilaterally Cardio: Rate: regular rate Rhythm: regular rhythm Heart sounds: no murmurs GI: Inspection: distended GI Palp: Yes Soft to palpation, Yes Tenderness to palpation present (GI), No Guarding due to palpation present (GI) and No Rigid due to palpation Auscultation: normal bowel sounds Skin: General skin exam: pallor Neuro: General: moves all extremities and CN's II-XI intact bilaterally Other: no focal deficits, Extrem: General: edema bilateral Psych: Mental Status: mental status grossly normal Affect: normal affect Course Reevaluation(s) Reevaluation #1: I spoke with patient's son who is his POA. I discussed that patient is extremely ill. He states patient is DNR/DNI. He would like us to attempted to stabilize . Date: 07/19/25 Time: 16:55 Consultations Consultation #1: I spoke with Tan who accepts patient to hospitalist service. I discussed I am going to talk to guest laundry attendant. I also discussed patient is DNR/DNI comforted with son. Son does want stabilization with IV fluids, antibiotics. he is okay if patient needs central line Date: 07/19/25 Time: 17:20 Consultation #2: I Discussed case with Dr. Benedict. He accepts patient to IMU. He recommends changing antibiotics to cefepime and flagyl given CT findings of ileitis and mass. Date: 07/19/25 Time: 17:22 Vital Signs Vital signs: Vital Signs Temperature 98.2 F 07/19/25 13:36 Pulse Rate 95 07/19/25 13:36 Respiratory Rate 18 07/19/25 13:36 Blood Pressure 88/54 L 07/19/25 13:36 Pulse Oximetry 95 07/19/25 13:36 Oxygen Delivery Nasal Cannula 07/19/25 13:36 Oxygen Flow Rate 2 07/19/25 13:36 Temperature 99.5 F 07/19/25 21:00 Pulse Rate 94 07/19/25 21:00 Respiratory Rate 18 07/19/25 21:00 Blood Pressure 104/57 L 07/19/25 21:00 Pulse Oximetry 99 07/19/25 21:00 Oxygen Delivery Nasal Cannula 07/19/25 20:00 Oxygen Flow Rate 3 07/19/25 20:00 MDM - Altered Mental Status MDM Narrative Medical decision making narrative: Patient presented for evaluation of weakness and low blood pressure. labs ordered. wbc is elevated to 18 K. Patient does have RAMIN normally creatinine below 1 and today it is 1.6. lactic acid is normal. UA negative. Chest xray was interpreted by radiology as possible pneumonia so I ordered rocephin IV and doxycycline IV. CT abdomen and pelvis ordered for further evaluation. CT shows concern for metastatic Cancer. This is likely cause of weakness. Patient had received 3 L bolus with patient improved but intermittently soft. I ordered another liter as patient likely dehydrated and discussed admission with guest laundry attendant and broaden antibiotics based on recommendations. I also spoke with son who is POA to discuss code status. He lives out of town and only family . I discussed patient is quite ill so he states they will make arrangements to come see patient. Patient BP seemed to normalized with fluids. I considered central line and levophed but patient blood pressure improved with IV fluids. HE was given more fluids because on bedside US right IVC still seem flat. Differential Diagnosis Differential diagnosis: Likely altered mental status, delirium, dementia, hypoglycemia, hyponatremia, sepsis and other (UTI, dehydration) Medical Records Attestation: I reviewed the patient's medical records. Lab Data Attestation: I reviewed the patient's lab results. 07/19/25 14:39 07/19/25 14:39 Labs: Lab Results 07/19/25 07/19/25 07/19/25 Range/Units 14:39 14:39 14:39 WBC 18.7 H (4.5-10.0) K/mm3 RBC 3.86 L (4.6-6.20) M/mm3 Hgb 11.7 L (14.0-18.0) g/dL Hct 37.1 L (42.0-52.0) % MCV 96.1 (80-100) fl MCH 30.3 (26-34) pg MCHC 31.5 L (32-36) g/dl RDW 14.5 (11.5-14.5) % Plt Count 287 (150-375) k/mm3 MPV 9.2 (7.4-10.4) fl Immature Gran % (Auto) 1.0 H (0-0.5) % Neut % (Auto) 88.3 H (45.5-73.1) % Lymph % (Auto) 6.4 L (18.3-44.2) % Hendry % (Auto) 4.1 (2.6-8.5) % Eos % (Auto) 0.1 (0-4.4) % Baso % (Auto) 0.1 L (0.2-1.2) % Lymph # (Auto) 1.19 (0.9-3.2) K/mm3 Hendry # (Auto) 0.8 H (0.1-0.6) K/mm3 Eos # (Auto) 0.0 (0-0.3) K/mm3 Baso # (Auto) 0.0 (0.0-0.1) K/mm3 Abs Immat Gran (auto) 0.19 H (0.00-0.031) K/mm3 Absolute Neuts (auto) 16.5 H (1.3-6.7) K/mm3 Absolute Nucleated RBC 0.000 (0.0-0.012) K/mm3 Nucleated RBC % 0.0 (0.0-0.2) % PT (11.1-14.7) Seconds INR APTT (22.3-36.8) Seconds Sodium Cancelled 136 L Potassium Cancelled 4.1 Chloride Cancelled Carbon Dioxide Anion Gap BUN Creatinine Estim Creat Clear Calc Estimated GFR Glucose Lactic Acid (0.7-2.0) mmol/L Calcium Total Bilirubin AST ALT Alkaline Phosphatase Troponin I (0.000-0.034) ng/mL Total Protein Albumin Lipase (23-300) U/L Urine Color (Yellow) Urine Appearance (Clear) Urine pH (5.0-9.0) Ur Specific [place] (1.001-1.035) Urine Protein (Negative) mg/dL Urine Glucose (UA) (Negative) mg/dL Urine Ketones (Negative) mg/dL Ur Blood (Man) (Negative) Urine Nitrate (Negative) Urine Bilirubin (Negative) Urine Urobilinogen (<2.0) mg/dL Add Ur Microanalysis Leukocyte Esterase Rfl (Negative) LATISHA/UL Urine RBC (0-2) /hpf Urine WBC (0-3) /hpf Ur Squamous Epith Cells (Few) /hpf Urine Bacteria /hpf Urine Casts 07/19/25 07/19/25 07/19/25 Range/Units 14:39 14:39 14:39 WBC (4.5-10.0) K/mm3 RBC (4.6-6.20) M/mm3 Hgb (14.0-18.0) g/dL Hct (42.0-52.0) % MCV (80-100) fl MCH (26-34) pg MCHC (32-36) g/dl RDW (11.5-14.5) % Plt Count (150-375) k/mm3 MPV (7.4-10.4) fl Immature Gran % (Auto) (0-0.5) % Neut % (Auto) (45.5-73.1) % Lymph % (Auto) (18.3-44.2) % Hendry % (Auto) (2.6-8.5) % Eos % (Auto) (0-4.4) % Baso % (Auto) (0.2-1.2) % Lymph # (Auto) (0.9-3.2) K/mm3 Hendry # (Auto) (0.1-0.6) K/mm3 Eos # (Auto) (0-0.3) K/mm3 Baso # (Auto) (0.0-0.1) K/mm3 Abs Immat Gran (auto) (0.00-0.031) K/mm3 Absolute Neuts (auto) (1.3-6.7) K/mm3 Absolute Nucleated RBC (0.0-0.012) K/mm3 Nucleated RBC % (0.0-0.2) % PT (11.1-14.7) Seconds INR APTT (22.3-36.8) Seconds Sodium Potassium Chloride 103 Carbon Dioxide Cancelled 27 Anion Gap Cancelled 6 BUN Cancelled Creatinine Estim Creat Clear Calc Estimated GFR Glucose Lactic Acid (0.7-2.0) mmol/L Calcium Total Bilirubin AST ALT Alkaline Phosphatase Troponin I (0.000-0.034) ng/mL Total Protein Albumin Lipase (23-300) U/L Urine Color (Yellow) Urine Appearance (Clear) Urine pH (5.0-9.0) Ur Specific [place] (1.001-1.035) Urine Protein (Negative) mg/dL Urine Glucose (UA) (Negative) mg/dL Urine Ketones (Negative) mg/dL Ur Blood (Man) (Negative) Urine Nitrate (Negative) Urine Bilirubin (Negative) Urine Urobilinogen (<2.0) mg/dL Add Ur Microanalysis Leukocyte Esterase Rfl (Negative) LATISHA/UL Urine RBC (0-2) /hpf Urine WBC (0-3) /hpf Ur Squamous Epith Cells (Few) /hpf Urine Bacteria /hpf Urine Casts 07/19/25 07/19/25 07/19/25 Range/Units 14:39 14:39 14:39 WBC (4.5-10.0) K/mm3 RBC (4.6-6.20) M/mm3 Hgb (14.0-18.0) g/dL Hct (42.0-52.0) % MCV (80-100) fl MCH (26-34) pg MCHC (32-36) g/dl RDW (11.5-14.5) % Plt Count (150-375) k/mm3 MPV (7.4-10.4) fl Immature Gran % (Auto) (0-0.5) % Neut % (Auto) (45.5-73.1) % Lymph % (Auto) (18.3-44.2) % Hendry % (Auto) (2.6-8.5) % Eos % (Auto) (0-4.4) % Baso % (Auto) (0.2-1.2) % Lymph # (Auto) (0.9-3.2) K/mm3 Hendry # (Auto) (0.1-0.6) K/mm3 Eos # (Auto) (0-0.3) K/mm3 Baso # (Auto) (0.0-0.1) K/mm3 Abs Immat Gran (auto) (0.00-0.031) K/mm3 Absolute Neuts (auto) (1.3-6.7) K/mm3 Absolute Nucleated RBC (0.0-0.012) K/mm3 Nucleated RBC % (0.0-0.2) % PT (11.1-14.7) Seconds INR APTT (22.3-36.8) Seconds Sodium Potassium Chloride Carbon Dioxide Anion Gap BUN 34 H D Creatinine Cancelled 1.67 H Estim Creat Clear Calc Cancelled 36 Estimated GFR Cancelled Glucose Lactic Acid (0.7-2.0) mmol/L Calcium Total Bilirubin AST ALT Alkaline Phosphatase Troponin I (0.000-0.034) ng/mL Total Protein Albumin Lipase (23-300) U/L Urine Color (Yellow) Urine Appearance (Clear) Urine pH (5.0-9.0) Ur Specific [place] (1.001-1.035) Urine Protein (Negative) mg/dL Urine Glucose (UA) (Negative) mg/dL Urine Ketones (Negative) mg/dL Ur Blood (Man) (Negative) Urine Nitrate (Negative) Urine Bilirubin (Negative) Urine Urobilinogen (<2.0) mg/dL Add Ur Microanalysis Leukocyte Esterase Rfl (Negative) LATISHA/UL Urine RBC (0-2) /hpf Urine WBC (0-3) /hpf Ur Squamous Epith Cells (Few) /hpf Urine Bacteria /hpf Urine Casts 07/19/25 07/19/25 07/19/25 Range/Units 14:39 14:39 14:39 WBC (4.5-10.0) K/mm3 RBC (4.6-6.20) M/mm3 Hgb (14.0-18.0) g/dL Hct (42.0-52.0) % MCV (80-100) fl MCH (26-34) pg MCHC (32-36) g/dl RDW (11.5-14.5) % Plt Count (150-375) k/mm3 MPV (7.4-10.4) fl Immature Gran % (Auto) (0-0.5) % Neut % (Auto) (45.5-73.1) % Lymph % (Auto) (18.3-44.2) % Hendry % (Auto) (2.6-8.5) % Eos % (Auto) (0-4.4) % Baso % (Auto) (0.2-1.2) % Lymph # (Auto) (0.9-3.2) K/mm3 Hendry # (Auto) (0.1-0.6) K/mm3 Eos # (Auto) (0-0.3) K/mm3 Baso # (Auto) (0.0-0.1) K/mm3 Abs Immat Gran (auto) (0.00-0.031) K/mm3 Absolute Neuts (auto) (1.3-6.7) K/mm3 Absolute Nucleated RBC (0.0-0.012) K/mm3 Nucleated RBC % (0.0-0.2) % PT (11.1-14.7) Seconds INR APTT (22.3-36.8) Seconds Sodium Potassium Chloride Carbon Dioxide Anion Gap BUN Creatinine Estim Creat Clear Calc Estimated GFR 40 L Glucose Cancelled 126 H Lactic Acid (0.7-2.0) mmol/L Calcium Cancelled 8.0 L Total Bilirubin Cancelled AST ALT Alkaline Phosphatase Troponin I (0.000-0.034) ng/mL Total Protein Albumin Lipase (23-300) U/L Urine Color (Yellow) Urine Appearance (Clear) Urine pH (5.0-9.0) Ur Specific [place] (1.001-1.035) Urine Protein (Negative) mg/dL Urine Glucose (UA) (Negative) mg/dL Urine Ketones (Negative) mg/dL Ur Blood (Man) (Negative) Urine Nitrate (Negative) Urine Bilirubin (Negative) Urine Urobilinogen (<2.0) mg/dL Add Ur Microanalysis Leukocyte Esterase Rfl (Negative) LATISHA/UL Urine RBC (0-2) /hpf Urine WBC (0-3) /hpf Ur Squamous Epith Cells (Few) /hpf Urine Bacteria /hpf Urine Casts 07/19/25 07/19/25 07/19/25 Range/Units 14:39 14:39 14:39 WBC (4.5-10.0) K/mm3 RBC (4.6-6.20) M/mm3 Hgb (14.0-18.0) g/dL Hct (42.0-52.0) % MCV (80-100) fl MCH (26-34) pg MCHC (32-36) g/dl RDW (11.5-14.5) % Plt Count (150-375) k/mm3 MPV (7.4-10.4) fl Immature Gran % (Auto) (0-0.5) % Neut % (Auto) (45.5-73.1) % Lymph % (Auto) (18.3-44.2) % Hendry % (Auto) (2.6-8.5) % Eos % (Auto) (0-4.4) % Baso % (Auto) (0.2-1.2) % Lymph # (Auto) (0.9-3.2) K/mm3 Hendry # (Auto) (0.1-0.6) K/mm3 Eos # (Auto) (0-0.3) K/mm3 Baso # (Auto) (0.0-0.1) K/mm3 Abs Immat Gran (auto) (0.00-0.031) K/mm3 Absolute Neuts (auto) (1.3-6.7) K/mm3 Absolute Nucleated RBC (0.0-0.012) K/mm3 Nucleated RBC % (0.0-0.2) % PT (11.1-14.7) Seconds INR APTT (22.3-36.8) Seconds Sodium Potassium Chloride Carbon Dioxide Anion Gap BUN Creatinine Estim Creat Clear Calc Estimated GFR Glucose Lactic Acid (0.7-2.0) mmol/L Calcium Total Bilirubin 1.9 H AST Cancelled 29 ALT Cancelled 12 Alkaline Phosphatase Cancelled Troponin I (0.000-0.034) ng/mL Total Protein Albumin Lipase (23-300) U/L Urine Color (Yellow) Urine Appearance (Clear) Urine pH (5.0-9.0) Ur Specific [place] (1.001-1.035) Urine Protein (Negative) mg/dL Urine Glucose (UA) (Negative) mg/dL Urine Ketones (Negative) mg/dL Ur Blood (Man) (Negative) Urine Nitrate (Negative) Urine Bilirubin (Negative) Urine Urobilinogen (<2.0) mg/dL Add Ur Microanalysis Leukocyte Esterase Rfl (Negative) LATISHA/UL Urine RBC (0-2) /hpf Urine WBC (0-3) /hpf Ur Squamous Epith Cells (Few) /hpf Urine Bacteria /hpf Urine Casts 07/19/25 07/19/25 07/19/25 Range/Units 14:39 14:39 14:39 WBC (4.5-10.0) K/mm3 RBC (4.6-6.20) M/mm3 Hgb (14.0-18.0) g/dL Hct (42.0-52.0) % MCV (80-100) fl MCH (26-34) pg MCHC (32-36) g/dl RDW (11.5-14.5) % Plt Count (150-375) k/mm3 MPV (7.4-10.4) fl Immature Gran % (Auto) (0-0.5) % Neut % (Auto) (45.5-73.1) % Lymph % (Auto) (18.3-44.2) % Hendry % (Auto) (2.6-8.5) % Eos % (Auto) (0-4.4) % Baso % (Auto) (0.2-1.2) % Lymph # (Auto) (0.9-3.2) K/mm3 Hendry # (Auto) (0.1-0.6) K/mm3 Eos # (Auto) (0-0.3) K/mm3 Baso # (Auto) (0.0-0.1) K/mm3 Abs Immat Gran (auto) (0.00-0.031) K/mm3 Absolute Neuts (auto) (1.3-6.7) K/mm3 Absolute Nucleated RBC (0.0-0.012) K/mm3 Nucleated RBC % (0.0-0.2) % PT (11.1-14.7) Seconds INR APTT (22.3-36.8) Seconds Sodium Potassium Chloride Carbon Dioxide Anion Gap BUN Creatinine Estim Creat Clear Calc Estimated GFR Glucose Lactic Acid (0.7-2.0) mmol/L Calcium Total Bilirubin AST ALT Alkaline Phosphatase 95 Troponin I < 0.012 (0.000-0.034) ng/mL Total Protein Cancelled 6.0 L Albumin Cancelled 3.1 L Lipase 27 (23-300) U/L Urine Color Dark yellow (Yellow) Urine Appearance Cloudy H (Clear) Urine pH 5.5 (5.0-9.0) Ur Specific [place] 1.021 (1.001-1.035) Urine Protein 2+ H (Negative) mg/dL Urine Glucose (UA) Negative (Negative) mg/dL Urine Ketones Trace H (Negative) mg/dL Ur Blood (Man) Negative (Negative) Urine Nitrate Negative (Negative) Urine Bilirubin Negative (Negative) Urine Urobilinogen 1.0 (<2.0) mg/dL Add Ur Microanalysis Reviewed Leukocyte Esterase Rfl Trace H (Negative) LATISHA/UL Urine RBC 0-2 (0-2) /hpf Urine WBC 0-5 (0-3) /hpf Ur Squamous Epith Cells Occasional (Few) /hpf Urine Bacteria None seen /hpf Urine Casts 6-10 07/19/ Range/Units 14:47 WBC (4.5-10.0) K/mm3 RBC (4.6-6.20) M/mm3 Hgb (14.0-18.0) g/dL Hct (42.0-52.0) % MCV (80-100) fl MCH (26-34) pg MCHC (32-36) g/dl RDW (11.5-14.5) % Plt Count (150-375) k/mm3 MPV (7.4-10.4) fl Immature Gran % (Auto) (0-0.5) % Neut % (Auto) (45.5-73.1) % Lymph % (Auto) (18.3-44.2) % Hendry % (Auto) (2.6-8.5) % Eos % (Auto) (0-4.4) % Baso % (Auto) (0.2-1.2) % Lymph # (Auto) (0.9-3.2) K/mm3 Hendry # (Auto) (0.1-0.6) K/mm3 Eos # (Auto) (0-0.3) K/mm3 Baso # (Auto) (0.0-0.1) K/mm3 Abs Immat Gran (auto) (0.00-0.031) K/mm3 Absolute Neuts (auto) (1.3-6.7) K/mm3 Absolute Nucleated RBC (0.0-0.012) K/mm3 Nucleated RBC % (0.0-0.2) % PT 26.0 H (11.1-14.7) Seconds INR 2.5 APTT 52.9 H (22.3-36.8) Seconds Sodium Potassium Chloride Carbon Dioxide Anion Gap BUN Creatinine Estim Creat Clear Calc Estimated GFR Glucose Lactic Acid 1.5 (0.7-2.0) mmol/L Calcium Total Bilirubin AST ALT Alkaline Phosphatase Troponin I (0.000-0.034) ng/mL Total Protein Albumin Lipase (23-300) U/L Urine Color (Yellow) Urine Appearance (Clear) Urine pH (5.0-9.0) Ur Specific [place] (1.001-1.035) Urine Protein (Negative) mg/dL Urine Glucose (UA) (Negative) mg/dL Urine Ketones (Negative) mg/dL Ur Blood (Man) (Negative) Urine Nitrate (Negative) Urine Bilirubin (Negative) Urine Urobilinogen (<2.0) mg/dL Add Ur Microanalysis Leukocyte Esterase Rfl (Negative) LATISHA/UL Urine RBC (0-2) /hpf Urine WBC (0-3) /hpf Ur Squamous Epith Cells (Few) /hpf Urine Bacteria /hpf Urine Casts Imaging Data Radiologist's impression: ITS Impressions Chest X-Ray 07/19/25 15:05 IMPRESSION: 1. Small to moderate-sized patchy opacities scattered throughout both lungs. Differential includes but is not limited to edema or pneumonia. Recommend follow-up to resolution. Head CT 07/19/25 15:34 Impression: 1.No acute intracranial abnormality. Abdomen/Pelvis CT 07/19/25 16:18 IMPRESSION: 1. To 0.6 x 6.7 x 9.0 cm mass centered in the right lower quadrant ileocolic mesentery which is concerning for malignancy either primary such as desmoid tumor, metastatic such as carcinoid or colon cancer or lymphoma. 2. Mild wall thickening of a few loops of distal ileum in the right lower quadrant with some surrounding inflammatory stranding consistent with a localized ileitis which could be infectious, inflammatory or ischemic etiology or potentially related to portal venous congestion secondary to the base noted mesenteric mass. 3. 6 hypodense masses in the spleen which could be malignant either metastatic disease or lymphoma, infection including granulomatous disease or hemangiomas. 4. Cardiomegaly. 5. Few mildly prominent left periaortic lymph nodes similarly suspicious for metastatic disease or lymphoma. 6. Numerous tiny lytic bone lesions throughout the visualized spine which could be due to study osteopenia, multiple myeloma or metastatic disease. Critical Care Time Critical Care Time Critical Care Time: Yes Total Critical Care Time: 40 Discharge Plan Discharge Clinical Impression: RAMIN (acute kidney injury) Hypotension Qualifiers: Hypotension type: hypotension due to hypovolemia Qualified Code(s): E86.1 - Hypovolemia Regional ileitis of small intestine Qualifiers: Digestive disease complication type: without complication Qualified Code(s): K50.00 - Crohn's disease of small intestine without complications Patient Disposition: Still a Patient Condition: Serious
[2025-07-19 14:47] LABS: Hematocrit 37.1 % (42.0-52.0); Hemoglobin 11.7 g/dL (14.0-18.0); Immature Granulocyte Percent A 1.0 % (0-0.5); Lymphocytes Absolute Auto 1.19 K/mm3 (0.9-3.2); Mean Corpuscular HGB Conc 31.5 g/dl (32-36); Mean Corpuscular Hemoglobin 30.3 pg (26-34); Mean Corpuscular Volume 96.1 fl (80-100); Nucleated Red Blood Cells Absolute Auto 0.000 K/mm3 (0.0-0.012); Nucleated Red Blood Cells Perc 0.0 % (0.0-0.2); Platelet Count Result 287 k/mm3 (150-375); Red Blood Count 3.86 M/mm3 (4.6-6.20); White Blood Count 18.7 K/mm3 (4.5-10.0)
[2025-07-19 14:57] LABS: Alanine Aminotransferase 12 U/L (6-50); Albumin Level 3.1 g/dL (3.5-5.1); Alkaline Phosphatase 95 U/L (38-126); Anion Gap 6 mmol/L (4-12); Aspartate Amino Transferase 29 U/L (17-59); Bilirubin,Total 1.9 mg/dL (0.2-1.3); Blood Urea Nitrogen 34 mg/dL (9-20); Calcium 8.0 mg/dL (8.4-10.2); Carbon Dioxide 27 mmol/L (22-30); Chloride 103 mmol/L (98-107); Estimated CRCL calculation 36 ml/min; Estimated Glomerular Filt Rate 40; Glucose 126 mg/dL (65-110); Lipase 27 U/L (23-300); Potassium 4.1 mmol/L (3.4-5.0); Sodium 136 mmol/L (137-145); Total Protein 6.0 g/dL (6.3-8.2)
[2025-07-19 15:00] LABS: Add Urine Microscopic? YES; Appearance Urine Cloudy (Clear); Glucose Urine UA Negative (Negative); Leukocyte Esterase Ur Trace LEU/UL (Negative); Need Manual Microscopic Reviewed; Nitrate Urine Negative (Negative); Specific Grav Ur 1.021 (1.001-1.035)
[2025-07-19 15:10] LABS: Troponin I < 0.012 ng/mL (0.000-0.034)
[2025-07-19 15:22] LABS: INR 2.5; Partial Thromboplastin Time 52.9 Seconds (22.3-36.8); Prothrombin Time 26.0 Seconds (11.1-14.7)
[2025-07-19] MEDS: cefTRIAXone 1 GM in SODIUM CHLORIDE 0.9% IV 50 ML 100 ML IVPB (16:02)
--- OUTSIDE RECORDS SUMMARY | 2025-07-19 16:20 | XMS_ITS | Clinical Summary ---
Author Organization [facility] Address [address] [place] [id number] Care Team Providers Care Food Manager Name Role Phone Martín Machado MD Primary Care Provider [phone] Social History Tobacco Use Types Packs/Day Years Used Date Smoking Tobacco: Never Assessed Sex and Gender Information Value Date Recorded Sex Assigned at Not on file Legal Sex Male 11:08 AM [employer] Gender Identity Not on file Sexual Orientation Not on file Plan of Treatment Health Maintenance Due Date Last Done Comments DTaP, Tdap and Td Vaccines ( 1 - Tdap) 1964 Pneumococcal Vaccine: 50+ Ye ars (1 of 1 - PCV) 1995 Zoster Vaccines (1 of 2) 1995 Annual Medicare Wellness Visit 2010 RSV Immunization or 60+ Years (1 - 1-dose 75+ series) 2020 COVID-19 Vaccine ( - 2024-2 6 season) 2025 Influenza Adult (#1) 2025 Hepatitis A Vaccines Aged Out No long er eligible based on patient's age to complete this topic Meningococcal B Vaccine Aged Out No l onger eligible based on patient's age to complete this topic Meningococcal Vaccine Aged Out No josy dinora eligible based on patient's age to complete this topic RSV Immunizations Under 20 Months Aged Out No longer eligible based on patient's age to complete this topic Insurance [facility] MEDICARE Care Teams Food Manager Relationship Specialty Start Date End Date Martín Machado MD PCP - General INTERNAL MEDICINE 08/27/19
[2025-07-19] MEDS: SODIUM CHLORIDE 0.9% IV 1,000 ML 999 ML IV CONT ×2 (16:33→18:35)
[2025-07-19] MEDS: DOXYCYCLINE IV 100 MG in SODIUM CHLORIDE 0.9% IV 100 ML IVPB (16:33)
--- NOTE | 2025-07-19 17:36 | PC.NURSE ---
EDP made aware of central line set up in room, states no longer needed.
[2025-07-19] MEDS: metroNIDAZOLE 500 MG/ISO 100ML 500 MG/100 ML BAG 100 MG IVPB (17:48)
[2025-07-19 19:00] LABS: MRSA (PCR) NOT DETECTED (NOT DETECTE)
--- NOTE | 2025-07-19 19:15 | PC.NURSE ---
This patient, Lewis Torrez, was admitted to Intensive Care Unit-7. Patient/family oriented to hospital policies and general routines including ID bracelet, bed and alarms, visiting hours, pain management, procedures, bathroom and other care routines, personal items, smoking policy, room service/diet, and visiting hours. Information on how to activate the Rapid Response Team has been discussed. Patient/Family are encouraged to report perceived risks to care and to ask questions if they do not understand what they are told or what they should do.
[2025-07-19] MEDS: CEFEPIME 2 GM in SODIUM CHLORIDE 0.9% IV 50 ML 100 ML IVPB (20:15)
[2025-07-19] MEDS: LACTATED RINGERS 1,000 ML 125 ML IV CONT (20:15)
--- NOTE | 2025-07-19 20:26 | PM.IMHP ---
H&P: HPI History of Present Illness Date/Time: 07/19/25 20:26 Chief Complaint: Change in mental status Narrative: 80-year-old male with a past medical history of dementia, dysphagia, hearing loss, pulmonary embolism on chronic Eliquis, chronic hypoxic respiratory failure and essential hypertension who presented to the ER via EMS from [facility] due to altered mental status. EMS reported the patient's blood pressures were low on arrival patient received 300 mL bolus in route to the ER. Patient was found hypoxic on room air at the facility but is post be on 2 L home O2 according to care home paperwork. Patient's pulse ox on arrival to the ER on his home 2 L of oxygen was 95%. He was not in any respiratory distress. He was still hypotensive on arrival to the ER with blood pressures of 88/54. He was reportedly only alert orient x1 with his baseline orientation unknown. Patient was afebrile on arrival to the ER. Sepsis workup was initiated him quite out was elevated to 18.7, hemoglobin was stable at 11.7, INR is 2.5 (on Eliquis), patient had evidence of acute kidney injury with creatinine of 1.67 from prior of 0.97, with trace ketones and trace leukocyte as trait in his urine. His chest x-ray demonstrated bilateral infiltrates. CT of the abdomen pelvis with contrast demonstrated right lower quadrant ileal colic mesentery mass, wall thickening of the distal ileum consistent with ileitis possibly infectious versus portal venous congestion from mesenteric mass, 6 splenic mass his and prominent Beth aortic lymph nodes suspicious for metastatic disease as well as numerous bone lesions throughout the visualized spine which could be due to osteopenia, multiple myeloma or metastatic disease. The patient received 4 L of isotonic fluid bolus in the ER as well as the 1 L that was started by EMS with resolution of hypotension. Patient was started on empiric antibiotic therapy with cefepime and Flagyl. Vancomycin was not added as the patient's MRSA screen was negative. The patient is not able to provide any meaningful history. He is alert oriented only to his name. Patient is conversational but confused. He states that he just feels too weak. The patient becomes agitated with examination and cries out that everything hurts when he touches anything below the level of his chest. When nursing staff asked if she could clean his gentle area. He and appropriately asked her if he could touch her speech nursing staff had tried to place a Chaidez catheter. They were unable to place a Chaidez catheter in the patient did have some bleeding post attempt of catheter placement. He still has some bleeding from his meatus. Bladder scan was obtained which demonstrated no evidence of urinary retention. Review of Systems Review of Systems: Unobtainable due to patient's mentation in clinical condition. [facility] Past Medical History Medical History Gait instability Bilateral hearing loss Dysphagia Chronic constipation Cognitive communication disorder Hypertension Supplemental oxygen dependent Pulmonary embolism Surgical History Surgical History No significant past surgical history Social History Social History (Updated 07/19/25 @ 20:50 by Kelly Larsen DO) Social History: The patient has resided at [facility] since May 2022. He is . 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 Code status: DNR/DNI (per care home paperwork and ER provider verified with the patient's son who is his POA) Financial and Healthcare power of mergers and acquisitions attorney: Evan Torrez Smoking status: Former smoker Tobacco type: pipe Alcohol intake: never Substance use: never Do You Feel Safe in your Home?: Yes Lack of Transportation: No Lack of Food: Never True Current Housing: I Have Housing Concerned About Future Housing: Decline to Answer Difficulty Paying Gas/Electric Bills: Decline to Answer Difficulty Paying for Meds: Decline to Answer Currently Unemployed: Decline to Answer Education: High School Diploma/GED Difficulty w/ Childcare or Family Care: Decline to Answer Spiritual care concerns: No Meds Home Medications and Allergies Home Medications ?Medication ?Instructions ?Recorded ?Confirmed ?Type acetaminophen 325 mg tablet 650 mg PO Q4H PRN Pain 01/12/24 07/19/25 History apixaban 5 mg tablet (Eliquis) 5 mg PO BID 01/12/24 07/19/25 History artificial tears(hypromellose) 0.2 1 drp EACH EYE TID PRN Dry Eye(S) 01/12/24 07/19/25 History % eye drops lidocaine 5 % topical patch 1 patch topical DAILY #30 ea 01/12/24 07/19/25 Rx loperamide 2 mg tablet 4 mg PO Q4H PRN constipation 01/12/24 07/19/25 History losartan 25 mg tablet 25 mg PO DAILY 01/12/24 07/19/25 History nystatin-triamcinolone 100,000 1 applic topical TID PRN dry feet 10/01/24 07/19/25 History unit/g-0.1 % topical cream senna-docusate sodium tablet 1 tablet PO TID PRN constipation 07/19/25 07/19/25 History Allergies Allergy/AdvReac Type Severity Reaction Status Date / Time azithromycin Allergy Unknown Verified 07/19/25 21:48 Vital Signs Vital Signs - 24 hr 07/19/25 13:36 07/19/25 14:11 07/19/25 14:14 Temperature 98.2 F Pulse Rate 95 97 98 Respiratory Rate 18 21 H 20 Blood Pressure 88/54 L 83/56 L 83/56 L Pulse Oximetry 95 96 97 Oxygen Delivery Nasal Cannula Oxygen Flow Rate 2 07/19/25 14:46 07/19/25 14:50 07/19/25 15:16 Temperature Pulse Rate 87 91 82 Respiratory Rate 20 19 21 H Blood Pressure 111/65 104/57 L 80/51 L Pulse Oximetry 97 97 94 Oxygen Delivery Oxygen Flow Rate 07/19/25 15:56 07/19/25 16:01 07/19/25 16:33 Temperature Pulse Rate 88 97 92 Respiratory Rate 18 20 20 Blood Pressure 105/56 L 97/55 L 93/43 L Pulse Oximetry 99 99 100 Oxygen Delivery Oxygen Flow Rate 07/19/25 16:34 07/19/25 17:46 07/19/25 20:00 Temperature Pulse Rate 86 102 H 97 Respiratory Rate 20 18 18 Blood Pressure 99/58 L 106/52 L Pulse Oximetry 98 100 Oxygen Delivery Oxygen Flow Rate Exam Narrative: Weight 95.7 kg BMI 32.1 Const: Other: Obese, debilitated, elderly HENMT: Other: Mucous membranes are dry, is no oral pharyngeal erythema, head is normocephalic atraumatic Eyes: Other: Pupils are equal and reactive, no scleral icterus Neck: Other: Large neck is conference, no JVD Resp: Other: Clear to auscultation bilaterally, no increased with her breathing Cardio: Other: Regular rate, regular rhythm, 2+ bilateral radial pulses, difficult to palpate pedal pulses due to edema GI: Other: Obese, tight, distended, tender to palpation motor so in the past right upper quadrant and PerriUmbilical region, normoactive bowel sounds Skin: Other: Chronic venous stasis and dry skin to bilateral lower extremities, generalized pallor, cold to touch bilateral feet, cool hands as well, sh Neuro: Other: Alert oriented to person only, speech is clear Extrem: Other: 3+ bilateral lower extremity edema Psych: Other: Pleasantly confused, does make sexually inappropriate comments to female nursing staff, poor judgment and insight H&P: Results Labs Labs: Laboratory Tests 07/19/25 14:39 07/19/25 14:39 07/19/25 07/19/25 07/19/25 14:39 14:39 14:39 WBC 18.7 H RBC 3.86 L Hgb 11.7 L Hct 37.1 L MCV 96.1 MCH 30.3 MCHC 31.5 L RDW 14.5 Plt Count 287 MPV 9.2 Immature Gran % (Auto) 1.0 H Neut % (Auto) 88.3 H Lymph % (Auto) 6.4 L [place] % (Auto) 4.1 Eos % (Auto) 0.1 Baso % (Auto) 0.1 L Lymph # (Auto) 1.19 [place] # (Auto) 0.8 H Eos # (Auto) 0.0 Baso # (Auto) 0.0 Abs Immat Gran (auto) 0.19 H Absolute Neuts (auto) 16.5 H Absolute Nucleated RBC 0.000 Nucleated RBC % 0.0 PT INR APTT Sodium Cancelled 136 L Potassium Cancelled 4.1 Chloride Cancelled Carbon Dioxide Anion Gap BUN Creatinine Estim Creat Clear Calc Estimated GFR Glucose Lactic Acid Calcium Total Bilirubin AST ALT Alkaline Phosphatase Troponin I Total Protein Albumin Lipase Urine Color Urine Appearance Urine pH Ur Specific [place] Urine Protein Urine Glucose (UA) Urine Ketones Ur Blood (Man) Urine Nitrate Urine Bilirubin Urine Urobilinogen Add Ur Microanalysis Leukocyte Esterase Rfl Urine RBC Urine WBC Ur Squamous Epith Cells Urine Bacteria Urine Casts Nasal MRSA (PCR) 07/19/25 07/19/25 07/19/25 14:39 14:39 14:39 WBC RBC Hgb Hct MCV MCH MCHC RDW Plt Count MPV Immature Gran % (Auto) Neut % (Auto) Lymph % (Auto) [place] % (Auto) Eos % (Auto) Baso % (Auto) Lymph # (Auto) [place] # (Auto) Eos # (Auto) Baso # (Auto) Abs Immat Gran (auto) Absolute Neuts (auto) Absolute Nucleated RBC Nucleated RBC % PT INR APTT Sodium Potassium Chloride 103 Carbon Dioxide Cancelled 27 Anion Gap Cancelled 6 BUN Cancelled Creatinine Estim Creat Clear Calc Estimated GFR Glucose Lactic Acid Calcium Total Bilirubin AST ALT Alkaline Phosphatase Troponin I Total Protein Albumin Lipase Urine Color Urine Appearance Urine pH Ur Specific [place] Urine Protein Urine Glucose (UA) Urine Ketones Ur Blood (Man) Urine Nitrate Urine Bilirubin Urine Urobilinogen Add Ur Microanalysis Leukocyte Esterase Rfl Urine RBC Urine WBC Ur Squamous Epith Cells Urine Bacteria Urine Casts Nasal MRSA (PCR) 07/19/25 07/19/25 07/19/25 14:39 14:39 14:39 WBC RBC Hgb Hct MCV MCH MCHC RDW Plt Count MPV Immature Gran % (Auto) Neut % (Auto) Lymph % (Auto) [place] % (Auto) Eos % (Auto) Baso % (Auto) Lymph # (Auto) [place] # (Auto) Eos # (Auto) Baso # (Auto) Abs Immat Gran (auto) Absolute Neuts (auto) Absolute Nucleated RBC Nucleated RBC % PT INR APTT Sodium Potassium Chloride Carbon Dioxide Anion Gap BUN 34 H D Creatinine Cancelled 1.67 H Estim Creat Clear Calc Cancelled 36 Estimated GFR Cancelled Glucose Lactic Acid Calcium Total Bilirubin AST ALT Alkaline Phosphatase Troponin I Total Protein Albumin Lipase Urine Color Urine Appearance Urine pH Ur Specific Dewitt Urine Protein Urine Glucose (UA) Urine Ketones Ur Blood (Man) Urine Nitrate Urine Bilirubin Urine Urobilinogen Add Ur Microanalysis Leukocyte Esterase Rfl Urine RBC Urine WBC Ur Squamous Epith Cells Urine Bacteria Urine Casts Nasal MRSA (PCR) 07/19/25 07/19/25 07/19/25 14:39 14:39 14:39 WBC RBC Hgb Hct MCV MCH MCHC RDW Plt Count MPV Immature Gran % (Auto) Neut % (Auto) Lymph % (Auto) [place] % (Auto) Eos % (Auto) Baso % (Auto) Lymph # (Auto) [place] # (Auto) Eos # (Auto) Baso # (Auto) Abs Immat Gran (auto) Absolute Neuts (auto) Absolute Nucleated RBC Nucleated RBC % PT INR APTT Sodium Potassium Chloride Carbon Dioxide Anion Gap BUN Creatinine Estim Creat Clear Calc Estimated GFR 40 L Glucose Cancelled 126 H Lactic Acid Calcium Cancelled 8.0 L Total Bilirubin Cancelled AST ALT Alkaline Phosphatase Troponin I Total Protein Albumin Lipase Urine Color Urine Appearance Urine pH Ur Specific Dewitt Urine Protein Urine Glucose (UA) Urine Ketones Ur Blood (Man) Urine Nitrate Urine Bilirubin Urine Urobilinogen Add Ur Microanalysis Leukocyte Esterase Rfl Urine RBC Urine WBC Ur Squamous Epith Cells Urine Bacteria Urine Casts Nasal MRSA (PCR) 07/19/25 07/19/25 07/19/25 14:39 14:39 14:39 WBC RBC Hgb Hct MCV MCH MCHC RDW Plt Count MPV Immature Gran % (Auto) Neut % (Auto) Lymph % (Auto) [place] % (Auto) Eos % (Auto) Baso % (Auto) Lymph # (Auto) [place] # (Auto) Eos # (Auto) Baso # (Auto) Abs Immat Gran (auto) Absolute Neuts (auto) Absolute Nucleated RBC Nucleated RBC % PT INR APTT Sodium Potassium Chloride Carbon Dioxide Anion Gap BUN Creatinine Estim Creat Clear Calc Estimated GFR Glucose Lactic Acid Calcium Total Bilirubin 1.9 H AST Cancelled 29 ALT Cancelled 12 Alkaline Phosphatase Cancelled Troponin I Total Protein Albumin Lipase Urine Color Urine Appearance Urine pH Ur Specific Dewitt Urine Protein Urine Glucose (UA) Urine Ketones Ur Blood (Man) Urine Nitrate Urine Bilirubin Urine Urobilinogen Add Ur Microanalysis Leukocyte Esterase Rfl Urine RBC Urine WBC Ur Squamous Epith Cells Urine Bacteria Urine Casts Nasal MRSA (PCR) 07/19/25 07/19/25 07/19/25 14:39 14:39 14:39 WBC RBC Hgb Hct MCV MCH MCHC RDW Plt Count MPV Immature Gran % (Auto) Neut % (Auto) Lymph % (Auto) [place] % (Auto) Eos % (Auto) Baso % (Auto) Lymph # (Auto) [place] # (Auto) Eos # (Auto) Baso # (Auto) Abs Immat Gran (auto) Absolute Neuts (auto) Absolute Nucleated RBC Nucleated RBC % PT INR APTT Sodium Potassium Chloride Carbon Dioxide Anion Gap BUN Creatinine Estim Creat Clear Calc Estimated GFR Glucose Lactic Acid Calcium Total Bilirubin AST ALT Alkaline Phosphatase 95 Troponin I < 0.012 Total Protein Cancelled 6.0 L Albumin Cancelled 3.1 L Lipase 27 Urine Color Dark yellow Urine Appearance Cloudy H Urine pH 5.5 Ur Specific Dewitt 1.021 Urine Protein 2+ H Urine Glucose (UA) Negative Urine Ketones Trace H Ur Blood (Man) Negative Urine Nitrate Negative Urine Bilirubin Negative Urine Urobilinogen 1.0 Add Ur Microanalysis Reviewed Leukocyte Esterase Rfl Trace H Urine RBC 0-2 Urine WBC 0-5 Ur Squamous Epith Cells Occasional Urine Bacteria None seen Urine Casts 6-10 Nasal MRSA (PCR) 07/19/25 07/19/25 14:47 17:46 WBC RBC Hgb Hct MCV MCH MCHC RDW Plt Count MPV Immature Gran % (Auto) Neut % (Auto) Lymph % (Auto) [place] % (Auto) Eos % (Auto) Baso % (Auto) Lymph # (Auto) [place] # (Auto) Eos # (Auto) Baso # (Auto) Abs Immat Gran (auto) Absolute Neuts (auto) Absolute Nucleated RBC Nucleated RBC % PT 26.0 H INR 2.5 APTT 52.9 H Sodium Potassium Chloride Carbon Dioxide Anion Gap BUN Creatinine Estim Creat Clear Calc Estimated GFR Glucose Lactic Acid 1.5 Calcium Total Bilirubin AST ALT Alkaline Phosphatase Troponin I Total Protein Albumin Lipase Urine Color Urine Appearance Urine pH Ur Specific Dewitt Urine Protein Urine Glucose (UA) Urine Ketones Ur Blood (Man) Urine Nitrate Urine Bilirubin Urine Urobilinogen Add Ur Microanalysis Leukocyte Esterase Rfl Urine RBC Urine WBC Ur Squamous Epith Cells Urine Bacteria Urine Casts Nasal MRSA (PCR) Not detected Impressions Chest X-Ray 07/19/25 15:05 IMPRESSION: 1. Small to moderate-sized patchy opacities scattered throughout both lungs. Differential includes but is not limited to edema or pneumonia. Recommend follow-up to resolution. Head CT 07/19/25 15:34 Impression: 1.No acute intracranial abnormality. Abdomen/Pelvis CT 07/19/25 16:18 IMPRESSION: 1. To 0.6 x 6.7 x 9.0 cm mass centered in the right lower quadrant ileocolic mesentery which is concerning for malignancy either primary such as desmoid tumor, metastatic such as carcinoid or colon cancer or lymphoma. 2. Mild wall thickening of a few loops of distal ileum in the right lower quadrant with some surrounding inflammatory stranding consistent with a localized ileitis which could be infectious, inflammatory or ischemic etiology or potentially related to portal venous congestion secondary to the base noted mesenteric mass. 3. 6 hypodense masses in the spleen which could be malignant either metastatic disease or lymphoma, infection including granulomatous disease or hemangiomas. 4. Cardiomegaly. 5. Few mildly prominent left periaortic lymph nodes similarly suspicious for metastatic disease or lymphoma. 6. Numerous tiny lytic bone lesions throughout the visualized spine which could be due to study osteopenia, multiple myeloma or metastatic disease. EKG: Test Date: 2025-07-19 13:50:25 Measurements Intervals [place] Rate: 96 P: 28 AK: 157 QRS: -17 QRSD: 137 T: -15 QT: 349 QTc: 442 Interpretive Statements SINUS RHYTHM RIGHT BUNDLE BRANCH BLOCK BASELINE ARTIFACT- I, III, AVR, AVL ABNORMAL ECG Compared to ECG 10/01/2024 08:51:18 HEART RATE HAS DECREASED Assessment and Plan Assessment and plan (1) Sepsis: Qualifiers: Acute renal failure type: unspecified Sepsis acute organ dysfunction status: with acute organ dysfunction Sepsis type: sepsis due to unspecified organism Severe sepsis acute organ dysfunction type: acute renal failure Severe sepsis shock status: without septic shock Qualified Code(s): A41.9 - Sepsis, unspecified organism; R65.20 - Severe sepsis without septic shock; N17.9 - Acute kidney failure, unspecified Code(s): A41.9 - Sepsis, unspecified organism Status: Acute (2) Hypotension: Qualifiers: Hypotension type: hypotension due to hypovolemia Qualified Code(s): E86.1 - Hypovolemia Code(s): I95.9 - Hypotension, unspecified Status: Acute (3) Regional ileitis of small intestine: Qualifiers: Digestive disease complication type: without complication Qualified Code(s): K50.00 - Crohn's disease of small intestine without complications Code(s): K50.00 - Crohn's disease of small intestine without complications Status: Acute (4) Intraabdominal mass: Code(s): R19.00 - Intra-abdominal and pelvic swelling, mass and lump, unspecified site Status: Acute (5) Lytic bone lesions on xray: Code(s): M89.8X9 - Other specified disorders of bone, unspecified site Status: Acute (6) Delirium due to multiple etiologies: Code(s): F05 - Delirium due to known physiological condition Status: Acute (7) Chronic hypoxic respiratory failure, on home oxygen therapy: Code(s): J96.11 - Chronic respiratory failure with hypoxia; Z99.81 - Dependence on supplemental oxygen Status: Acute Plan Patient presents with sepsis with potential source of ileitis, pneumonia or bacteremia. Patient was initiated on broad-spectrum antibiotic coverage with cefepime and Flagyl. He also received 1 dose of Rocephin and doxycycline. Cefepime and Flagyl will be continued. Patient did not placed on vancomycin due to negative MRSA PCR. Will continue doxycycline for atypical coverage possible pneumonia mention on chest x-ray. However chest x-ray findings could be due to metastatic disease although no pneumonia or metastases noted on the visualized portions of the lung on the CT of the abdomen and pelvis. Blood cultures have been obtained and are pending. Patient's respiratory status is also stable he is on his home O2 which seems to make primary respiratory infectious process somewhat less likely. Patient does have ileitis AFib on further elevated for white count out beats is more suspicious of the ileitis being due to venous congestion from the associated mesenteric mass in infection less likely but given other clinical findings will cover for infectious process. Patient received total of 5 L of isotonic fluid resuscitation in the ER. Hypotension which was likely due to hypovolemia and or infection/sepsis has now resolved. Will continue maintenance IV fluids. The patient did not require central line placement and although Levophed was ordered in the ER it was not initiated. Patient does have new imaging findings of mesenteric mass, periorbital lymphadenopathy and numerous lytic lesions to the bones with unknown primary source of malignancy. Given the patient's long-standing dementia, dysphagia and generalized debility he is not a good candidate for chemotherapy or further investigative/surgical procedures to identify malignant source. I was told by the provider in handoff that the family is planning to come in from out of town to discuss the patient's care. ER provider did discuss the patient's case with the patient's healthcare power of mergers and acquisitions attorney who, according documentation, stated the patient's is to remain a DNR/DNI but they would like the patient to be clinically stabilized. Will hold patient's Eliquis for the short term given acute masses and into discussion of whether not the family would want intervention for possible biopsy. Will check venous Dopplers of bilateral lower extremities to rule out DVTs prior to ordering venous Dopplers. Patient was initially admitted to the ICU due to hypotension. But the patient had resolution of hypotension but time he arrived to the ICU. Will cancel exercise equipment specialist consult and the transfer patient to medical floor with telemetry. MEDICAL DECISION MAKING NARRATIVE -Spoke with the ED provider in detail regarding patient's evaluation, workup and management -Patient seen and examined at bedside -Collaborated with patient's nurse at the bedside in detail and addressed all concerns -Labs, electrolytes, radiology, investigations and test results personally reviewed and interpreted unless otherwise specified -ED/Consult/Nursing/Ancilliary notes on the chart reviewed and appreciated Quality VTE Prophylaxis VTE prophylaxis: mechanical ordered (See above) Hospitalist MIPS Advance Care Plan I have confirmed that the patient's Advanced Care Plan is present, code status is documented, or surrogate decision maker is listed in patient medical record.: Yes Medication Reconciliation I have utilized all available resources to obtain, update and review the patients current medications (includes all prescriptions, OTC, herbals, cannabis, and nutritional supplements).: Yes
[2025-07-20] VITALS (13 sets, daily range): BP systolic 104–128; BP diastolic 47–77; PULSE 91–110; RESP 15–20; TEMP 36.4–37.3; O2SAT 93–98; BMI 32.1
[2025-07-20] MEDS: metroNIDAZOLE 500 MG/ISO 100ML 500 MG/100 ML BAG 100 MG IVPB ×3 (02:18→17:02)
[2025-07-20 04:09] LABS: Hematocrit 34.7 % (42.0-52.0); Hemoglobin 11.0 g/dL (14.0-18.0); Immature Granulocyte Percent A 0.8 % (0-0.5); Lymphocytes Absolute Auto 1.18 K/mm3 (0.9-3.2); Mean Corpuscular HGB Conc 31.7 g/dl (32-36); Mean Corpuscular Hemoglobin 30.5 pg (26-34); Mean Corpuscular Volume 96.1 fl (80-100); Nucleated Red Blood Cells Absolute Auto 0.000 K/mm3 (0.0-0.012); Nucleated Red Blood Cells Perc 0.0 % (0.0-0.2); Platelet Count Result 283 k/mm3 (150-375); Red Blood Count 3.61 M/mm3 (4.6-6.20); White Blood Count 16.6 K/mm3 (4.5-10.0)
[2025-07-20 04:31] LABS: Alanine Aminotransferase 10 U/L (6-50); Albumin Level 2.7 g/dL (3.5-5.1); Alkaline Phosphatase 92 U/L (38-126); Anion Gap 3 mmol/L (4-12); Aspartate Amino Transferase 28 U/L (17-59); Bilirubin,Total 1.1 mg/dL (0.2-1.3); Blood Urea Nitrogen 27 mg/dL (9-20); Calcium 7.6 mg/dL (8.4-10.2); Carbon Dioxide 26 mmol/L (22-30); Chloride 108 mmol/L (98-107); Estimated CRCL calculation 50 ml/min; Estimated Glomerular Filt Rate 59; Glucose 95 mg/dL (65-110); Potassium 4.1 mmol/L (3.4-5.0); Sodium 137 mmol/L (137-145); Total Protein 5.5 g/dL (6.3-8.2)
[2025-07-20] MEDS: LACTATED RINGERS 1,000 ML 125 ML IV CONT (05:50)
--- NOTE | 2025-07-20 05:53 | PC.NURSE ---
This patient, Lewis Torrez, was transferred to [ [id number] ] on 07/20/25 at 0610. Personal belongings sent with patient. Report given to [Felicia SHAW ]. Appropriate documentation sent with patient. Call placed to son to make aware of transfer.
--- NOTE | 2025-07-20 06:41 | PC.NURSE ---
Pt arrived from ICU7 report received from Sherice SHAW
[2025-07-20] MEDS: CEFEPIME 2 GM in SODIUM CHLORIDE 0.9% IV 50 ML 100 ML IVPB ×2 (10:56→19:52)
--- NOTE | 2025-07-20 14:07 | P.PNIM_ITS ---
Progress Note: A&P Assessment and Plan (1) Sepsis: Qualifiers: Sepsis type: sepsis due to unspecified organism Sepsis acute organ dysfunction status: with acute organ dysfunction Severe sepsis acute organ dysfunction type: acute renal failure Acute renal failure type: unspecified Severe sepsis shock status: without septic shock Qualified Code(s): A41.9 - Sepsis, unspecified organism; R65.20 - Severe sepsis without septic shock; N17.9 - Acute kidney failure, unspecified Code(s): A41.9 - Sepsis, unspecified organism Status: Acute (2) Hypotension: Qualifiers: Hypotension type: hypotension due to hypovolemia Qualified Code(s): E86.1 - Hypovolemia Code(s): I95.9 - Hypotension, unspecified Status: Acute (3) Regional ileitis of small intestine: Qualifiers: Digestive disease complication type: without complication Qualified Code(s): K50.00 - Crohn's disease of small intestine without complications Code(s): K50.00 - Crohn's disease of small intestine without complications Status: Acute (4) Intraabdominal mass: Code(s): R19.00 - Intra-abdominal and pelvic swelling, mass and lump, unspecified site Status: Acute (5) Lytic bone lesions on xray: Code(s): M89.8X9 - Other specified disorders of bone, unspecified site Status: Acute (6) Delirium due to multiple etiologies: Code(s): F05 - Delirium due to known physiological condition Status: Acute (7) Chronic hypoxic respiratory failure, on home oxygen therapy: Code(s): J96.11 - Chronic respiratory failure with hypoxia; Z99.81 - Dependence on supplemental oxygen Status: Acute Plan 1. Sepsis, Source Unclear (Possible Ileitis, Pneumonia, or Bacteremia) * Assessment: * Patient presented with sepsis, hypotension (now resolved), and leukocytosis. * Potential infectious sources include ileitis (noted on imaging), possible pneumonia (CXR findings, but CT A/P did not confirm), or bacteremia. * Blood cultures pending. * Respiratory status stable on home O2; primary respiratory infection less likely. * Ileitis may be due to venous congestion from mesenteric mass rather than infection, but infectious etiology not excluded. * Plan: * Continue broad-spectrum antibiotics: cefepime and metronidazole. * Continue doxycycline for atypical pneumonia coverage (pending further clarification of CXR findings). * Hold vancomycin (MRSA PCR negative). * Monitor for clinical improvement and review culture results daily. * Monitor for recurrence of hypotension or clinical deterioration. * Continue maintenance IV fluids. * Monitor WBC, lactate, renal and hepatic function. * Reassess antibiotic regimen once cultures and further clinical data are available. 2. New Mesenteric Mass, Periorbital Lymphadenopathy, and Lytic Bone Lesions (Malignancy, Unknown Primary) * Assessment: * Imaging revealed new mesenteric mass, periorbital lymphadenopathy, and multiple lytic bone lesions. * Unknown primary malignancy. * Given advanced dementia, dysphagia, and debility, patient is not a candidate for chemotherapy or further invasive diagnostics. * Family to be involved in [id number] discussion. * Plan: * Supportive care. * No further workup for malignancy at this time. * Await family meeting for further [id number] clarification. * Continue to update healthcare POA and family as needed. 3. Atrial Fibrillation * Assessment: * History of AFib. * Apixaban held due to concern for acute masses and pending discussion regarding possible biopsy/intervention. * Plan: * Hold apixaban for now. * Assess risk/benefit of anticoagulation after family meeting and further diagnostic clarification. * Monitor for signs of thromboembolism or bleeding. 4. Hypotension, Resolved * Assessment: * Initial hypotension likely secondary to hypovolemia and/or sepsis. * Responded to 5L isotonic fluid resuscitation in ED. * No vasopressors required; norepinephrine was ordered but not initiated. * Plan: * Continue to monitor hemodynamics. * Maintenance IV fluids. * No central line required at this time. 5. DVT Prophylaxis * Plan: * Venous Dopplers of bilateral lower extremities to rule out DVT prior to resuming anticoagulation. * If negative and no contraindications, consider resuming DVT prophylaxis as appropriate. 6. Disposition and Code Status * Assessment: * Initially admitted to ICU for hypotension, now hemodynamically stable. * Code status: DNR/DNI per healthcare POA, with goal for clinical stabilization. * Plan: * Cancel logistics management specialist consult. * Transfer to medical floor with telemetry. * Continue to update family and healthcare POA. * Reassess code status and goals of care after family meeting. 7. Additional Supportive Care * Plan: * Monitor labs: CBC, CMP, lactate, cultures. * Monitor urine output and renal function. * Symptom management as needed (pain, nausea, etc.). * Multidisciplinary care: nursing, case management, palliative care consult if appropriate after family meeting. * DVT prophylaxis on Sq Lovenox Subjective Date/time seen: 07/20/25 14:07 Interval history: Comfortable at bedside awaiting family for goals of care discussion Review of Systems Review of Systems: Unobtainable due to patient's mentation in clinical condition. Exam Narrative: Weight 95.7 kg BMI 32.1 Const: Other: Obese, debilitated, elderly HENMT: Other: Mucous membranes are dry, is no oral pharyngeal erythema, head is normocephalic atraumatic Eyes: Other: Pupils are equal and reactive, no scleral icterus Neck: Other: Large neck is conference, no JVD Resp: Other: Clear to auscultation bilaterally, no increased with her breathing Cardio: Other: Regular rate, regular rhythm, 2+ bilateral radial pulses, difficult to palpate pedal pulses due to edema GI: Other: Obese, tight, distended, tender to palpation motor so in the past right upper quadrant and PerriUmbilical region, normoactive bowel sounds Skin: Other: Chronic venous stasis and dry skin to bilateral lower extremities, generalized pallor, cold to touch bilateral feet, cool hands as well, sh Neuro: Other: Alert oriented to person only, speech is clear Extrem: Other: 3+ bilateral lower extremity edema Psych: Other: Pleasantly confused, does make sexually inappropriate comments to female nursing staff, poor judgment and insight Objective Data Vital Signs Vital Signs: Vital Signs - 24 hr 07/19/25 14:11 07/19/25 14:14 07/19/25 14:46 Temperature Pulse Rate 97 98 87 Respiratory Rate 21 H 20 20 Blood Pressure 83/56 L 83/56 L 111/65 Pulse Oximetry 96 97 97 Oxygen Delivery Oxygen Flow Rate 07/19/25 14:50 07/19/25 15:16 07/19/25 15:56 Temperature Pulse Rate 91 82 88 Respiratory Rate 19 21 H 18 Blood Pressure 104/57 L 80/51 L 105/56 L Pulse Oximetry 97 94 99 Oxygen Delivery Oxygen Flow Rate 07/19/25 16:01 07/19/25 16:33 07/19/25 16:34 Temperature Pulse Rate 97 92 86 Respiratory Rate 20 20 20 Blood Pressure 97/55 L 93/43 L Pulse Oximetry 99 100 98 Oxygen Delivery Oxygen Flow Rate 07/19/25 17:46 07/19/25 19:15 07/19/25 20:00 Temperature Pulse Rate 102 H 98 97 Respiratory Rate 18 18 Blood Pressure 99/58 L 92/52 L 106/52 L Pulse Oximetry 100 Oxygen Delivery Oxygen Flow Rate 07/19/25 20:00 07/19/25 20:00 07/19/25 21:00 Temperature Pulse Rate 97 92 Respiratory Rate 18 Blood Pressure 104/57 L Pulse Oximetry 98 99 Oxygen Delivery Nasal Cannula Oxygen Flow Rate 3 07/19/25 21:00 07/19/25 22:00 07/19/25 22:00 Temperature 99.5 F 99.0 F Pulse Rate 94 101 H 101 H Respiratory Rate 18 22 H Blood Pressure 104/57 L 95/60 L Pulse Oximetry 99 98 Oxygen Delivery Oxygen Flow Rate 07/19/25 23:00 07/20/25 00:00 07/20/25 00:00 Temperature 99.1 F Pulse Rate 95 97 109 H Respiratory Rate 22 H 20 Blood Pressure 100/48 L 104/51 L Pulse Oximetry 98 98 Oxygen Delivery Oxygen Flow Rate 07/20/25 00:00 07/20/25 01:00 07/20/25 02:00 Temperature Pulse Rate 93 97 Respiratory Rate 15 Blood Pressure 110/54 L Pulse Oximetry 98 93 Oxygen Delivery Nasal Cannula Oxygen Flow Rate 2 07/20/25 02:00 07/20/25 04:00 07/20/25 08:00 Temperature 99.0 F Pulse Rate 97 91 94 Respiratory Rate 20 18 Blood Pressure 106/48 L Pulse Oximetry 96 97 Oxygen Delivery Nasal Cannula Oxygen Flow Rate 2 07/20/25 08:00 07/20/25 09:21 07/20/25 12:00 Temperature Pulse Rate 108 H 94 95 Respiratory Rate 18 Blood Pressure 122/47 L Pulse Oximetry 97 Oxygen Delivery Oxygen Flow Rate Intake/Output Intake/Output: Intake & Output 07/17/25 07/18/25 07/19/25 07/20/25 23:59 23:59 23:59 23:59 Intake Total 4300 1966.7 Output Total 200 350 Balance 4100 1616.7 Meds/Results Medications: Active Medications Generic Name Dose Route Start Last Admin Trade Name Freq PRN Reason Stop Dose Admin Artificial Tears 1 drop 07/19/25 22:11 Artificial Tears Ophth Soln 15 Ml Bottle EACH EYE TID PRN Dry Eye(S) Metronidazole 500 mg in 100 mls @ 100 mls/hr 07/20/25 02:00 07/20/25 10:57 Flagyl 500 Mg/Iso Soln 100 Ml IVPB 100 mls/hr Q8H JOANNA Administration Cefepime HCl 2 gm/ Sodium 50 mls @ 100 mls/hr 07/20/25 08:00 07/20/25 10:56 Chloride IVPB 100 mls/hr Q12H JOANNA Administration Lactated Ringer's 1,000 mls @ 100 mls/hr 07/19/25 17:40 07/20/25 12:46 Lr - Lactated Ringers Iv IV CONT 100 mls/hr .Q10H JOANNA Infusion Lidocaine 1 patch 07/19/25 22:02 Lidocaine 5% Patch TOPICAL DAILY PRN Musculoskeletal pain Ondansetron HCl 4 mg 07/19/25 17:24 Ondansetron Inj 4 Mg/2 Ml Vial IV PUSH Q4H PRN Nausea Radiology Results: ITS Impressions Chest X-Ray 07/19/25 15:05 IMPRESSION: 1. Small to moderate-sized patchy opacities scattered throughout both lungs. Differential includes but is not limited to edema or pneumonia. Recommend follow-up to resolution. Head CT 07/19/25 15:34 Impression: 1.No acute intracranial abnormality. Abdomen/Pelvis CT 07/19/25 16:18 IMPRESSION: 1. To 0.6 x 6.7 x 9.0 cm mass centered in the right lower quadrant ileocolic mesentery which is concerning for malignancy either primary such as desmoid tumor, metastatic such as carcinoid or colon cancer or lymphoma. 2. Mild wall thickening of a few loops of distal ileum in the right lower quadrant with some surrounding inflammatory stranding consistent with a loc alized ileitis which could be infectious, inflammatory or ischemic etiology or potentially related to portal venous congestion secondary to the base noted mesenteric mass. 3. 6 hypodense masses in the spleen which could be malignant either metastatic disease or lymphoma, infection including granulomatous disease or hemangiomas. 4. Cardiomegaly. 5. Few mildly prominent left periaortic lymph nodes similarly suspicious for metastatic disease or lymphoma. 6. Numerous tiny lytic bone lesions throughout the visualized spine which could be due to study osteopenia, multiple myeloma or metastatic disease. Labs Labs: Laboratory Results - last 24 hr 07/19/25 07/19/25 07/19/25 14:39 14:39 14:39 WBC 18.7 H RBC 3.86 L Hgb 11.7 L Hct 37.1 L MCV 96.1 MCH 30.3 MCHC 31.5 L RDW 14.5 Plt Count 287 MPV 9.2 Immature Gran % (Auto) 1.0 H Neut % (Auto) 88.3 H Lymph % (Auto) 6.4 L Blaine % (Auto) 4.1 Eos % (Auto) 0.1 Baso % (Auto) 0.1 L Lymph # (Auto) 1.19 Blaine # (Auto) 0.8 H Eos # (Auto) 0.0 Baso # (Auto) 0.0 Abs Immat Gran (auto) 0.19 H Absolute Neuts (auto) 16.5 H Absolute Nucleated RBC 0.000 Nucleated RBC % 0.0 PT INR APTT Sodium Cancelled 136 L Potassium Cancelled 4.1 Chloride Cancelled Carbon Dioxide Anion Gap BUN Creatinine Estim Creat Clear Calc Estimated GFR Glucose Lactic Acid Calcium Total Bilirubin AST ALT Alkaline Phosphatase Troponin I Total Protein Albumin Lipase Urine Color Urine Appearance Urine pH Ur Specific [place] Urine Protein Urine Glucose (UA) Urine Ketones Ur Blood (Man) Urine Nitrate Urine Bilirubin Urine Urobilinogen Add Ur Microanalysis Leukocyte Esterase Rfl Urine RBC Urine WBC Ur Squamous Epith Cells Urine Bacteria Urine Casts Nasal MRSA (PCR) 07/19/25 07/19/25 07/19/25 14:39 14:39 14:39 WBC RBC Hgb Hct MCV MCH MCHC RDW Plt Count MPV Immature Gran % (Auto) Neut % (Auto) Lymph % (Auto) [place] % (Auto) Eos % (Auto) Baso % (Auto) Lymph # (Auto) [place] # (Auto) Eos # (Auto) Baso # (Auto) Abs Immat Gran (auto) Absolute Neuts (auto) Absolute Nucleated RBC Nucleated RBC % PT INR APTT Sodium Potassium Chloride 103 Carbon Dioxide Cancelled 27 Anion Gap Cancelled 6 BUN Cancelled Creatinine Estim Creat Clear Calc Estimated GFR Glucose Lactic Acid Calcium Total Bilirubin AST ALT Alkaline Phosphatase Troponin I Total Protein Albumin Lipase Urine Color Urine Appearance Urine pH Ur Specific [place] Urine Protein Urine Glucose (UA) Urine Ketones Ur Blood (Man) Urine Nitrate Urine Bilirubin Urine Urobilinogen Add Ur Microanalysis Leukocyte Esterase Rfl Urine RBC Urine WBC Ur Squamous Epith Cells Urine Bacteria Urine Casts Nasal MRSA (PCR) 07/19/25 07/19/25 07/19/25 14:39 14:39 14:39 WBC RBC Hgb Hct MCV MCH MCHC RDW Plt Count MPV Immature Gran % (Auto) Neut % (Auto) Lymph % (Auto) [place] % (Auto) Eos % (Auto) Baso % (Auto) Lymph # (Auto) [place] # (Auto) Eos # (Auto) Baso # (Auto) Abs Immat Gran (auto) Absolute Neuts (auto) Absolute Nucleated RBC Nucleated RBC % PT INR APTT Sodium Potassium Chloride Carbon Dioxide Anion Gap BUN 34 H D Creatinine Cancelled 1.67 H Estim Creat Clear Calc Cancelled 36 Estimated GFR Cancelled Glucose Lactic Acid Calcium Total Bilirubin AST ALT Alkaline Phosphatase Troponin I Total Protein Albumin Lipase Urine Color Urine Appearance Urine pH Ur Specific [place] Urine Protein Urine Glucose (UA) Urine Ketones Ur Blood (Man) Urine Nitrate Urine Bilirubin Urine Urobilinogen Add Ur Microanalysis Leukocyte Esterase Rfl Urine RBC Urine WBC Ur Squamous Epith Cells Urine Bacteria Urine Casts Nasal MRSA (PCR) 07/19/25 07/19/25 07/19/25 14:39 14:39 14:39 WBC RBC Hgb Hct MCV MCH MCHC RDW Plt Count MPV Immature Gran % (Auto) Neut % (Auto) Lymph % (Auto) [place] % (Auto) Eos % (Auto) Baso % (Auto) Lymph # (Auto) [place] # (Auto) Eos # (Auto) Baso # (Auto) Abs Immat Gran (auto) Absolute Neuts (auto) Absolute Nucleated RBC Nucleated RBC % PT INR APTT Sodium Potassium Chloride Carbon Dioxide Anion Gap BUN Creatinine Estim Creat Clear Calc Estimated GFR 40 L Glucose Cancelled 126 H Lactic Acid Calcium Cancelled 8.0 L Total Bilirubin Cancelled AST ALT Alkaline Phosphatase Troponin I Total Protein Albumin Lipase Urine Color Urine Appearance Urine pH Ur Specific [place] Urine Protein Urine Glucose (UA) Urine Ketones Ur Blood (Man) Urine Nitrate Urine Bilirubin Urine Urobilinogen Add Ur Microanalysis Leukocyte Esterase Rfl Urine RBC Urine WBC Ur Squamous Epith Cells Urine Bacteria Urine Casts Nasal MRSA (PCR) 07/19/25 07/19/25 07/19/25 14:39 14:39 14:39 WBC RBC Hgb Hct MCV MCH MCHC RDW Plt Count MPV Immature Gran % (Auto) Neut % (Auto) Lymph % (Auto) [place] % (Auto) Eos % (Auto) Baso % (Auto) Lymph # (Auto) [place] # (Auto) Eos # (Auto) Baso # (Auto) Abs Immat Gran (auto) Absolute Neuts (auto) Absolute Nucleated RBC Nucleated RBC % PT INR APTT Sodium Potassium Chloride Carbon Dioxide Anion Gap BUN Creatinine Estim Creat Clear Calc Estimated GFR Glucose Lactic Acid Calcium Total Bilirubin 1.9 H AST Cancelled 29 ALT Cancelled 12 Alkaline Phosphatase Cancelled Troponin I Total Protein Albumin Lipase Urine Color Urine Appearance Urine pH Ur Specific [place] Urine Protein Urine Glucose (UA) Urine Ketones Ur Blood (Man) Urine Nitrate Urine Bilirubin Urine Urobilinogen Add Ur Microanalysis Leukocyte Esterase Rfl Urine RBC Urine WBC Ur Squamous Epith Cells Urine Bacteria Urine Casts Nasal MRSA (PCR) 07/19/25 07/19/25 07/19/25 14:39 14:39 14:39 WBC RBC Hgb Hct MCV MCH MCHC RDW Plt Count MPV Immature Gran % (Auto) Neut % (Auto) Lymph % (Auto) [place] % (Auto) Eos % (Auto) Baso % (Auto) Lymph # (Auto) [place] # (Auto) Eos # (Auto) Baso # (Auto) Abs Immat Gran (auto) Absolute Neuts (auto) Absolute Nucleated RBC Nucleated RBC % PT INR APTT Sodium Potassium Chloride Carbon Dioxide Anion Gap BUN Creatinine Estim Creat Clear Calc Estimated GFR Glucose Lactic Acid Calcium Total Bilirubin AST ALT Alkaline Phosphatase 95 Troponin I < 0.012 Total Protein Cancelled 6.0 L Albumin Cancelled 3.1 L Lipase 27 Urine Color Dark yellow Urine Appearance Cloudy H Urine pH 5.5 Ur Specific [place] 1.021 Urine Protein 2+ H Urine Glucose (UA) Negative Urine Ketones Trace H Ur Blood (Man) Negative Urine Nitrate Negative Urine Bilirubin Negative Urine Urobilinogen 1.0 Add Ur Microanalysis Reviewed Leukocyte Esterase Rfl Trace H Urine RBC 0-2 Urine WBC 0-5 Ur Squamous Epith Cells Occasional Urine Bacteria None seen Urine Casts 6-10 Nasal MRSA (PCR) 07/19/25 07/19/25 07/20/25 14:47 17:46 03:56 WBC 16.6 H RBC 3.61 L Hgb 11.0 L Hct 34.7 L MCV 96.1 MCH 30.5 MCHC 31.7 L RDW 14.6 H Plt Count 283 MPV 9.2 Immature Gran % (Auto) 0.8 H Neut % (Auto) 88.4 H Lymph % (Auto) 7.1 L [place] % (Auto) 3.0 Eos % (Auto) 0.6 Baso % (Auto) 0.1 L Lymph # (Auto) 1.18 [place] # (Auto) 0.5 Eos # (Auto) 0.1 Baso # (Auto) 0.0 Abs Immat Gran (auto) 0.14 H Absolute Neuts (auto) 14.7 H Absolute Nucleated RBC 0.000 Nucleated RBC % 0.0 PT 26.0 H INR 2.5 APTT 52.9 H Sodium 137 Potassium 4.1 Chloride 108 H Carbon Dioxide 26 Anion Gap 3 L BUN 27 H Creatinine 1.18 Estim Creat Clear Calc 50 Estimated GFR 59 Glucose 95 Lactic Acid 1.5 Calcium 7.6 L Total Bilirubin 1.1 AST 28 ALT 10 Alkaline Phosphatase 92 Troponin I Total Protein 5.5 L Albumin 2.7 L Lipase Urine Color Urine Appearance Urine pH Ur Specific [place] Urine Protein Urine Glucose (UA) Urine Ketones Ur Blood (Man) Urine Nitrate Urine Bilirubin Urine Urobilinogen Add Ur Microanalysis Leukocyte Esterase Rfl Urine RBC Urine WBC Ur Squamous Epith Cells Urine Bacteria Urine Casts Nasal MRSA (PCR) Not detected Quality VTE Prophylaxis VTE prophylaxis: mechanical ordered (See above)
[2025-07-20] MEDS: LACTATED RINGERS 1,000 ML 100 ML IV CONT (17:02)
[2025-07-20] MEDS: ENOXAPARIN 40 MG/0.4 ML SYRINGE SUB-Q (17:06)
[2025-07-21] VITALS (8 sets, daily range): BP systolic 100–113; BP diastolic 56–65; PULSE 85–113; RESP 16; TEMP 36.4–36.6; O2SAT 93–95
[2025-07-21] MEDS: metroNIDAZOLE 500 MG/ISO 100ML 500 MG/100 ML BAG 100 MG IVPB ×2 (01:56→09:27)
[2025-07-21 05:15] LABS: Hematocrit 33.2 % (42.0-52.0); Hemoglobin 10.5 g/dL (14.0-18.0); Immature Granulocyte Percent A 0.6 % (0-0.5); Lymphocytes Absolute Auto 1.28 K/mm3 (0.9-3.2); Mean Corpuscular HGB Conc 31.6 g/dl (32-36); Mean Corpuscular Hemoglobin 30.7 pg (26-34); Mean Corpuscular Volume 97.1 fl (80-100); Nucleated Red Blood Cells Absolute Auto 0.000 K/mm3 (0.0-0.012); Nucleated Red Blood Cells Perc 0.0 % (0.0-0.2); Platelet Count Result 292 k/mm3 (150-375); Red Blood Count 3.42 M/mm3 (4.6-6.20); White Blood Count 11.9 K/mm3 (4.5-10.0)
[2025-07-21 05:36] LABS: Alanine Aminotransferase 11 U/L (6-50); Albumin Level 2.6 g/dL (3.5-5.1); Alkaline Phosphatase 90 U/L (38-126); Anion Gap 3 mmol/L (4-12); Aspartate Amino Transferase 29 U/L (17-59); Bilirubin,Total 0.9 mg/dL (0.2-1.3); Blood Urea Nitrogen 22 mg/dL (9-20); Calcium 7.7 mg/dL (8.4-10.2); Carbon Dioxide 27 mmol/L (22-30); Chloride 106 mmol/L (98-107); Estimated CRCL calculation 60 ml/min; Estimated Glomerular Filt Rate > 60; Glucose 105 mg/dL (65-110); Magnesium 2.0 mg/dL (1.6-2.3); Potassium 3.7 mmol/L (3.4-5.0); Sodium 136 mmol/L (137-145); Total Protein 5.4 g/dL (6.3-8.2)
[2025-07-21] MEDS: LACTATED RINGERS 1,000 ML 100 ML IV CONT (05:43)
--- NOTE | 2025-07-21 07:48 | P.PNIM_ITS ---
Progress Note: A&P Assessment and Plan (1) Sepsis: Qualifiers: Sepsis type: sepsis due to unspecified organism Sepsis acute organ dysfunction status: with acute organ dysfunction Severe sepsis acute organ dysfunction type: acute renal failure Acute renal failure type: unspecified Severe sepsis shock status: without septic shock Qualified Code(s): A41.9 - Sepsis, unspecified organism; R65.20 - Severe sepsis without septic shock; N17.9 - Acute kidney failure, unspecified Code(s): A41.9 - Sepsis, unspecified organism Status: Acute (2) Hypotension: Qualifiers: Hypotension type: hypotension due to hypovolemia Qualified Code(s): E86.1 - Hypovolemia Code(s): I95.9 - Hypotension, unspecified Status: Acute (3) Regional ileitis of small intestine: Qualifiers: Digestive disease complication type: without complication Qualified Code(s): K50.00 - Crohn's disease of small intestine without complications Code(s): K50.00 - Crohn's disease of small intestine without complications Status: Acute (4) Intraabdominal mass: Code(s): R19.00 - Intra-abdominal and pelvic swelling, mass and lump, unspecified site Status: Acute (5) Lytic bone lesions on xray: Code(s): M89.8X9 - Other specified disorders of bone, unspecified site Status: Acute (6) Delirium due to multiple etiologies: Code(s): F05 - Delirium due to known physiological condition Status: Acute (7) Chronic hypoxic respiratory failure, on home oxygen therapy: Code(s): J96.11 - Chronic respiratory failure with hypoxia; Z99.81 - Dependence on supplemental oxygen Status: Acute Plan 1. Sepsis, Source Unclear (Possible Ileitis, Pneumonia, or Bacteremia) * Assessment: * Patient presented with sepsis, hypotension (now resolved), and leukocytosis. * Potential infectious sources include ileitis (noted on imaging), possible pneumonia (CXR findings, but CT A/P did not confirm), or bacteremia. * Blood cultures pending. * Respiratory status stable on home O2; primary respiratory infection less likely. * Ileitis may be due to venous congestion from mesenteric mass rather than infection, but infectious etiology not excluded. * Plan: * Continue broad-spectrum antibiotics: cefepime and metronidazole. * Continue doxycycline for atypical pneumonia coverage (pending further clarification of CXR findings). * Hold vancomycin (MRSA PCR negative). * Monitor for clinical improvement and review culture results daily. * Monitor for recurrence of hypotension or clinical deterioration. * Continue maintenance IV fluids. * Monitor WBC, lactate, renal and hepatic function. * Reassess antibiotic regimen once cultures and further clinical data are available. 07/21: VSS on baseline 2L NC, pending BC 2. New Mesenteric Mass, Periorbital Lymphadenopathy, and Lytic Bone Lesions (Malignancy, Unknown Primary) * Assessment: * Imaging revealed new mesenteric mass, periorbital lymphadenopathy, and multiple lytic bone lesions. * Unknown primary malignancy. * Given advanced dementia, dysphagia, and debility, patient is not a candidate for chemotherapy or further invasive diagnostics. * Family to be involved in [id number] discussion. * Plan: * Supportive care. * No further workup for malignancy at this time. * Await family meeting for further [id number] clarification. * Continue to update healthcare POA and family as needed. 3. Atrial Fibrillation * Assessment: * History of AFib. * Apixaban held due to concern for acute masses and pending discussion regarding possible biopsy/intervention. * Plan: * Hold apixaban for now. * Assess risk/benefit of anticoagulation after family meeting and further diagnostic clarification. * Monitor for signs of thromboembolism or bleeding. 07/21: -US dopplers BLE: Left le. Possible DVT in posterior tibial veins. Patient unable to tolerate compression to verify. Peroneal also not visualized. 2. No [id number] DVT. Right le. No DVT. -->Eliquis was restarted on 07/20 -->Will continue to monitor 4. Hypotension, Resolved * Assessment: * Initial hypotension likely secondary to hypovolemia and/or sepsis. * Responded to 5L isotonic fluid resuscitation in ED. * No vasopressors required; norepinephrine was ordered but not initiated. * Plan: * Continue to monitor hemodynamics. * Maintenance IV fluids. * No central line required at this time. 07/21: VSS 5. DVT Prophylaxis * Plan: * Venous Dopplers of bilateral lower extremities to rule out DVT prior to resuming anticoagulation. * If negative and no contraindications, consider resuming DVT prophylaxis as appropriate. 07/21: -US dopplers BLE: Left le. Possible DVT in posterior tibial veins. Patient unable to tolerate compression to verify. Peroneal also not visualized. 2. No [id number] DVT. Right le. No DVT. -->Eliquis was restarted on 07/20 -->Will continue to monitor 6. Disposition and Code Status * Assessment: * Initially admitted to ICU for hypotension, now hemodynamically stable. * Code status: DNR/DNI per healthcare POA, with goal for clinical stabilization. * Plan: * Cancel tools developer consult. * Transfer to medical floor with telemetry. * Continue to update family and healthcare POA. * Reassess code status and goals of care after family meeting. 7. Additional Supportive Care * Plan: * Monitor labs: CBC, CMP, lactate, cultures. * Monitor urine output and renal function. * Symptom management as needed (pain, nausea, etc.). * Multidisciplinary care: nursing, case management, palliative care consult if appropriate after family meeting. DVT prophylaxis on Sq Lovenox Subjective Date/time seen: 07/21/25 Interval history: Comfortable at bedside awaiting family for goals of care discussion Review of Systems Review of Systems: Unobtainable due to patient's mentation in clinical condition. Exam Narrative: Weight 95.7 kg BMI 32.1 Const: Other: Obese, debilitated, elderly HENMT: Other: Mucous membranes are dry, is no oral pharyngeal erythema, head is normocephalic atraumatic Eyes: Other: Pupils are equal and reactive, no scleral icterus Neck: Other: Large neck is conference, no JVD Resp: Other: Clear to auscultation bilaterally, no increased with her breathing Cardio: Other: Regular rate, regular rhythm, 2+ bilateral radial pulses, difficult to palpate pedal pulses due to edema GI: Other: Obese, tight, distended, tender to palpation motor so in the past right upper quadrant and PerriUmbilical region, normoactive bowel sounds Skin: Other: Chronic venous stasis and dry skin to bilateral lower extremities, generalized pallor, cold to touch bilateral feet, cool hands as well, sh Neuro: Other: Alert oriented to person only, speech is clear Extrem: Other: 3+ bilateral lower extremity edema Psych: Other: Pleasantly confused, does make sexually inappropriate comments to female nursing staff, poor judgment and insight Objective Data Vital Signs Vital Signs: Vital Signs - 24 hr 07/20/25 08:00 07/20/25 08:00 07/20/25 09:21 Temperature Pulse Rate 94 108 H 94 Respiratory Rate 18 18 Blood Pressure 122/47 L Pulse Oximetry 97 97 Oxygen Delivery Nasal Cannula Oxygen Flow Rate 2 Fraction of Inspired Oxygen 07/20/25 12:00 07/20/25 16:00 07/20/25 17:34 Temperature 97.6 F Pulse Rate 95 97 96 Respiratory Rate 18 Blood Pressure Pulse Oximetry 97 Oxygen Delivery Oxygen Flow Rate Fraction of Inspired Oxygen 07/20/25 17:43 07/20/25 19:47 07/20/25 20:00 Temperature Pulse Rate 110 H 107 H Respiratory Rate 20 Blood Pressure 104/61 Pulse Oximetry 97 Oxygen Delivery Nasal Cannula Oxygen Flow Rate 2 Fraction of Inspired Oxygen 07/20/25 22:10 07/21/25 00:00 07/21/25 04:00 Temperature 98.3 F Pulse Rate 92 113 H 85 Respiratory Rate 18 Blood Pressure 128/77 Pulse Oximetry 98 Oxygen Delivery Oxygen Flow Rate Fraction of Inspired Oxygen Intake/Output Intake/Output: Intake & Output 07/18/25 07/19/25 07/20/25 07/21/25 23:59 23:59 23:59 23:59 Intake Total 4300 3120.0 1000 Output Total 200 350 Balance 4100 2770.0 1000 Meds/Results Medications: Active Medications Generic Name Dose Route Start Last Admin Trade Name Freq PRN Reason Stop Dose Admin Artificial Tears 1 drop 07/19/25 22:11 Artificial Tears Ophth Soln 15 Ml Bottle EACH EYE TID PRN Dry Eye(S) Enoxaparin Sodium 40 mg 07/20/25 14:25 07/20/25 17:06 Enoxaparin 40 Mg/0.4 Ml Syringe SUB-Q 40 mg DAILY JOANNA Administration Metronidazole 500 mg in 100 mls @ 100 mls/hr 07/20/25 02:00 07/21/25 01:56 Flagyl 500 Mg/Iso Soln 100 Ml IVPB 100 mls/hr Q8H JOANNA Administration Cefepime HCl 2 gm/ Sodium 50 mls @ 100 mls/hr 07/20/25 08:00 07/20/25 20:22 Chloride IVPB Infused Q12H JOANNA Infusion Lactated Ringer's 1,000 mls @ 100 mls/hr 07/19/25 17:40 07/21/25 05:43 Lr - Lactated Ringers Iv IV CONT 100 mls/hr .Q10H JOANNA Administration Lidocaine 1 patch 07/19/25 22:02 Lidocaine 5% Patch TOPICAL DAILY PRN Musculoskeletal pain Ondansetron HCl 4 mg 07/19/25 17:24 Ondansetron Inj 4 Mg/2 Ml Vial IV PUSH Q4H PRN Nausea Radiology Results: ITS Impressions Chest X-Ray 07/19/25 15:05 IMPRESSION: 1. Small to moderate-sized patchy opacities scattered throughout both lungs. Differential includes but is not limited to edema or pneumonia. Recommend follow-up to resolution. Head CT 07/19/25 15:34 Impression: 1.No acute intracranial abnormality. Abdomen/Pelvis CT 07/19/25 16:18 IMPRESSION: 1. To 0.6 x 6.7 x 9.0 cm mass centered in the right lower quadrant ileocolic mesentery which is concerning for malignancy either primary such as desmoid tumor, metastatic such as carcinoid or colon cancer or lymphoma. 2. Mild wall thickening of a few loops of distal ileum in the right lower quadrant with some surrounding inflammatory stranding consistent with a localized ileitis which could be infectious, inflammatory or ischemic etiology or potentially related to portal venous congestion secondary to the base noted mesenteric mass. 3. 6 hypodense masses in the spleen which could be malignant either metastatic disease or lymphoma, infection including granulomatous disease or hemangiomas. 4. Cardiomegaly. 5. Few mildly prominent left periaortic lymph nodes similarly suspicious for metastatic disease or lymphoma. 6. Numerous tiny lytic bone lesions throughout the visualized spine which could be due to study osteopenia, multiple myeloma or metastatic disease. Labs Labs: Laboratory Results - last 24 hr 07/21/25 04:57 WBC 11.9 H RBC 3.42 L Hgb 10.5 L Hct 33.2 L MCV 97.1 MCH 30.7 MCHC 31.6 L RDW 14.4 Plt Count 292 MPV 9.1 Immature Gran % (Auto) 0.6 H Neut % (Auto) 83.2 H Lymph % (Auto) 10.8 L Evangeline % (Auto) 3.2 Eos % (Auto) 2.1 Baso % (Auto) 0.1 L Lymph # (Auto) 1.28 Evangeline # (Auto) 0.4 Eos # (Auto) 0.3 Baso # (Auto) 0.0 Abs Immat Gran (auto) 0.07 H Absolute Neuts (auto) 9.9 H Absolute Nucleated RBC 0.000 Nucleated RBC % 0.0 Sodium 136 L Potassium 3.7 Chloride 106 Carbon Dioxide 27 Anion Gap 3 L BUN 22 H Creatinine 0.98 Estim Creat Clear Calc 60 Estimated GFR > 60 Glucose 105 Calcium 7.7 L Magnesium 2.0 Total Bilirubin 0.9 AST 29 ALT 11 Alkaline Phosphatase 90 Total Protein 5.4 L Albumin 2.6 L Quality VTE Prophylaxis VTE prophylaxis: pharmacologic ordered
[2025-07-21] MEDS: CEFEPIME 2 GM in SODIUM CHLORIDE 0.9% IV 50 ML 100 ML IVPB (09:26)
[2025-07-21] MEDS: ENOXAPARIN 40 MG/0.4 ML SYRINGE SUB-Q (09:27)
--- NOTE | 2025-07-21 14:25 | P.DS_ITS ---
DS: Admitting Diagnosis Discharge Date 07/21/2025 Admitting Diagnosis AMS, PNA DS: Discharge Diagnosis Discharge Diagnosis (1) Sepsis: Qualifiers: Acute renal failure type: unspecified Sepsis acute organ dysfunction status: with acute organ dysfunction Sepsis type: sepsis due to unspecified organism Severe sepsis acute organ dysfunction type: acute renal failure Severe sepsis shock status: without septic shock Qualified Code(s): A41.9 - Sepsis, unspecified organism; R65.20 - Severe sepsis without septic shock; N17.9 - Acute kidney failure, unspecified Code(s): A41.9 - Sepsis, unspecified organism Status: Acute (2) Hypotension: Qualifiers: Hypotension type: hypotension due to hypovolemia Qualified Code(s): E86.1 - Hypovolemia Code(s): I95.9 - Hypotension, unspecified Status: Acute (3) Regional ileitis of small intestine: Qualifiers: Digestive disease complication type: without complication Qualified Code(s): K50.00 - Crohn's disease of small intestine without complications Code(s): K50.00 - Crohn's disease of small intestine without complications Status: Acute (4) Intraabdominal mass: Code(s): R19.00 - Intra-abdominal and pelvic swelling, mass and lump, unspecified site Status: Acute (5) Lytic bone lesions on xray: Code(s): M89.8X9 - Other specified disorders of bone, unspecified site Status: Acute (6) Delirium due to multiple etiologies: Code(s): F05 - Delirium due to known physiological condition Status: Acute (7) Chronic hypoxic respiratory failure, on home oxygen therapy: Code(s): J96.11 - Chronic respiratory failure with hypoxia; Z99.81 - Dependence on supplemental oxygen Status: Acute Plan 1. Sepsis, Source Unclear (Possible Ileitis, Pneumonia, or Bacteremia) * Assessment: * Patient presented with sepsis, hypotension (now resolved), and leukocytosis. * Potential infectious sources include ileitis (noted on imaging), possible pneumonia (CXR findings, but CT A/P did not confirm), or bacteremia. * Blood cultures pending. * Respiratory status stable on home O2; primary respiratory infection less likely. * Ileitis may be due to venous congestion from mesenteric mass rather than infection, but infectious etiology not excluded. * Plan: * Continue broad-spectrum antibiotics: cefepime and metronidazole. * Continue doxycycline for atypical pneumonia coverage (pending further clarification of CXR findings). * Hold vancomycin (MRSA PCR negative). * Monitor for clinical improvement and review culture results daily. * Monitor for recurrence of hypotension or clinical deterioration. * Continue maintenance IV fluids. * Monitor WBC, lactate, renal and hepatic function. * Reassess antibiotic regimen once cultures and further clinical data are available. 07/21: VSS on baseline 2L NC, pending BC -To be discharged back to [facility] on hospice services. Will continue to treat with Levaquin for possible atypical PNA via CXR. MRSA negative. -BC no growth in 24 hours. 2. New Mesenteric Mass, Periorbital Lymphadenopathy, and Lytic Bone Lesions (Malignancy, Unknown Primary) * Assessment: * Imaging revealed new mesenteric mass, periorbital lymphadenopathy, and multiple lytic bone lesions. * Unknown primary malignancy. * Given advanced dementia, dysphagia, and debility, patient is not a candidate for chemotherapy or further invasive diagnostics. * Family to be involved in [id number] discussion. * Plan: * Supportive care. * No further workup for malignancy at this time. * Await family meeting for further [id number] clarification. * Continue to update healthcare POA and family as needed. 07/21: -To be discharged back to [facility] on hospice services. 3. Atrial Fibrillation * Assessment: * History of AFib. * Apixaban held due to concern for acute masses and pending discussion regarding possible biopsy/intervention. * Plan: * Hold apixaban for now. * Assess risk/benefit of anticoagulation after family meeting and further diagnostic clarification. * Monitor for signs of thromboembolism or bleeding. 07/21: -US dopplers BLE: Left le. Possible DVT in posterior tibial veins. Patient unable to tolerate compression to verify. Peroneal also not visualized. 2. No [id number] DVT. Right le. No DVT. -->Eliquis was restarted on 07/20 -->Will continue to monitor 4. Hypotension, Resolved * Assessment: * Initial hypotension likely secondary to hypovolemia and/or sepsis. * Responded to 5L isotonic fluid resuscitation in ED. * No vasopressors required; norepinephrine was ordered but not initiated. * Plan: * Continue to monitor hemodynamics. * Maintenance IV fluids. * No central line required at this time. 07/21: VSS 5. DVT Prophylaxis * Plan: * Venous Dopplers of bilateral lower extremities to rule out DVT prior to resuming anticoagulation. * If negative and no contraindications, consider resuming DVT prophylaxis as appropriate. 07/21: -US dopplers BLE: Left le. Possible DVT in posterior tibial veins. Patient unable to tolerate compression to verify. Peroneal also not visualized. 2. No happy-qic-rwde DVT. Right le. No DVT. -->Eliquis was restarted on 07/20 -->Will continue to monitor 6. Disposition and Code Status * Assessment: * Initially admitted to ICU for hypotension, now hemodynamically stable. * Code status: DNR/DNI per healthcare POA, with goal for clinical stabilization. * Plan: * Cancel labor relations or personnel negotiator consult. * Transfer to medical floor with telemetry. * Continue to update family and healthcare POA. * Reassess code status and goals of care after family meeting. 07/21: -To be discharged back to [facility] on hospice services. 7. Additional Supportive Care * Plan: * Monitor labs: CBC, CMP, lactate, cultures. * Monitor urine output and renal function. * Symptom management as needed (pain, nausea, etc.). * Multidisciplinary care: nursing, case management, palliative care consult if appropriate after family meeting. DVT prophylaxis on Sq Lovenox DS: Summary Hospital Course Reason for hospitalization: AMS, PNA Hospital Course: 80-year-old male with a past medical history of dementia, dysphagia, hearing los s, pulmonary embolism on chronic Eliquis, chronic hypoxic respiratory failure and essential hypertension who presented to the ER via EMS from [facility] due to altered mental status. EMS reported the patient's blood pressures were low on arrival patient received 300 mL bolus in route to the ER. Patient was found hypoxic on room air at the facility but is post be on 2 L home O2 according to residential paperwork. Patient's pulse ox on arrival to the ER on his home 2 L of oxygen was 95%. He was not in any respiratory distress. He was still hypotensive on arrival to the ER with blood pressures of 88/54. He was reportedly only alert orient x1 with his baseline orientation unknown. Patient was afebrile on arrival to the ER. Sepsis workup was initiated him quite out was elevated to 18.7, hemoglobin was stable at 11.7, INR is 2.5 (on Eliquis), patient had evidence of acute kidney injury with creatinine of 1.67 from prior of 0.97, with trace ketones and trace leukocyte as trait in his urine. His chest x-ray demonstrated bilateral infiltrates. CT of the abdomen pelvis with contrast demonstrated right lower quadrant ileal colic mesentery mass, wall thickening of the distal ileum consistent with ileitis possibly infectious versus portal venous congestion from mesenteric mass, 6 splenic mass his and prominent Beth aortic lymph nodes suspicious for metastatic disease as well as numerous bone lesions throughout the visualized spine which could be due to osteopenia, multiple myeloma or metastatic disease. The patient received 4 L of isotonic fluid bolus in the ER as well as the 1 L that was started by EMS with resolution of hypotension. Patient was started on empiric antibiotic therapy with cefepime and Flagyl. Vancomycin was not added as the patient's MRSA screen was negative. The patient is not able to provide any meaningful history. He is alert oriented only to his name. Patient is conversational but confused. He states that he just feels too weak. The patient becomes agitated with examination and cries out that everything hurts when he touches anything below the level of his chest. When nursing staff asked if she could clean his gentle area. He and appropriately asked her if he could touch her speech nursing staff had tried to place a Chaidez catheter. US of BLE dopplers yielded a possible DVT to the LLE, eliquis restarted on 07/20. Hospice met with pt and family today (07/21) and the decision was made that the pt sign on with hospice services and return back to [facility]. Pt is in NAD and stable for transport. Will continue to treat for possible atypical PNA with Levaquin x6 additional days due to CXR results. Pt remains at same baseline orientation status of oriented to self. Status at Discharge Cognitive/behavioral status at discharge: Pt to discharge with hospice. Overall status at discharge: patient is not back to baseline Time Spent with Patient Time attestation: Total time spent providing and/or coordinating discharge services: 45 Exam Narrative: Weight 95.7 kg BMI 32.1 Const: Other: Obese, debilitated, elderly HENMT: Other: Mucous membranes are dry, is no oral pharyngeal erythema, head is normocephalic atraumatic Eyes: Other: Pupils are equal and reactive, no scleral icterus Neck: Other: Large neck is conference, no JVD Resp: Other: Clear to auscultation bilaterally, no increased with her breathing Cardio: Other: Regular rate, regular rhythm, 2+ bilateral radial pulses, difficult to palpate pedal pulses due to edema GI: Other: Obese, tight, distended, tender to palpation motor so in the past right upper quadrant and PeriUmbilical region, normoactive bowel sounds Skin: Other: Chronic venous stasis and dry skin to bilateral lower extremities, generalized pallor, cold to touch bilateral feet, cool hands as well, sh Neuro: Other: Alert oriented to person only, speech is clear Extrem: Other: 3+ bilateral lower extremity edema Psych: Other: Pleasantly confused, does make sexually inappropriate comments to female nursing staff, poor judgment and insight DS: Data Data Completed and Pending Completed studies during hospitalization: Labs, urine, imaging Labs on day of discharge: Labs from last 24 hours 07/21/25 04:57 WBC 11.9 H RBC 3.42 L Hgb 10.5 L Hct 33.2 L MCV 97.1 MCH 30.7 MCHC 31.6 L RDW 14.4 Plt Count 292 MPV 9.1 Immature Gran % (Auto) 0.6 H Neut % (Auto) 83.2 H Lymph % (Auto) 10.8 L [place] % (Auto) 3.2 Eos % (Auto) 2.1 Baso % (Auto) 0.1 L Lymph # (Auto) 1.28 [place] # (Auto) 0.4 Eos # (Auto) 0.3 Baso # (Auto) 0.0 Abs Immat Gran (auto) 0.07 H Absolute Neuts (auto) 9.9 H Absolute Nucleated RBC 0.000 Nucleated RBC % 0.0 Sodium 136 L Potassium 3.7 Chloride 106 Carbon Dioxide 27 Anion Gap 3 L BUN 22 H Creatinine 0.98 Estim Creat Clear Calc 60 Estimated GFR > 60 Glucose 105 Calcium 7.7 L Magnesium 2.0 Total Bilirubin 0.9 AST 29 ALT 11 Alkaline Phosphatase 90 Total Protein 5.4 L Albumin 2.6 L Preliminary micro results at discharge 07/19/25 15:55 Blood Culture - Preliminary Blood 07/19/25 15:55 Blood Culture - Preliminary Blood Discharge Plan Discharge Attending physician on discharge: Carolyn De La Vega Consulting providers: Laureen Alejandro Discharging Clinician: Laureen Alejandro Anticipated Discharge Date/Time: 07/21/25 15:00 Patient Disposition: Hospice - Home Activity: may shower Diet: regular Discharge Instructions: Continue to take the antibiotic pills, Levaquin, for a potential pneumonia seen on your x-ray. You will take this for six more days. Do not take this medication on an empty stomach. Patient Instructions: Antibiotic Form, Levofloxacin (By mouth), Apixaban (By mouth) Patient Language: Indonesian Stand Alone Forms: General Discharge Information Discharge Medications: New levofloxacin 750 mg tablet 750 mg PO DAILY Qty: 6 0RF Continued acetaminophen 325 mg Tablet 650 mg PO Q4H PRN (Reason: Pain) loperamide 2 mg Tablet 4 mg PO Q4H PRN (Reason: constipation) Rx Instructions: administer after each loose stool until symptoms controlled; do not exceed 8 mg per 24 hrs losartan 25 mg Tablet 25 mg PO DAILY artificial tears(hypromellose) 0.2 % Drops 1 drp EACH EYE TID PRN (Reason: Dry Eye(S)) Eliquis 5 mg Tablet 5 mg PO BID lidocaine 5 % adhesive patch,medicated 1 patch topical DAILY Qty: 30 0RF Rx Instructions: leave on most painful area for up to 12 hrs nystatin-triamcinolone 100,000-0.1 unit/g-% cream 1 applic topical TID PRN (Reason: dry feet) senna-docusate sodium Tablet 1 tablet PO TID PRN (Reason: constipation) Date of admission: 07/19/25 17:24 Primary Care Provider: RadhaAmbreen Admitting Provider: Denny Nelson Attending physician on admission: Denny Nelson Condition: Stable Quality VTE Prophylaxis VTE prophylaxis: pharmacologic ordered Hospitalist MIPS Heart Failure (Exclusion) Patient has history of Heart Transplant or Left Ventricular Assistive Device?: No IF YES, STOP HERE Heart Failure (Qualifier) Patient has current or prior documentation of LVEF less than or equal to 40%, or mod/servere depressed LVSF?: No IF NO, STOP HERE
== END 2025-07-21 17:25 | disposition hospice, home (50) | DRG 871 ==
LOC: ANHED 14:38 → ANHICU 18:17 → ANH3MED 07-20 05:53
PROVIDERS: Emergency Medicine; Internal Medicine; Admitting Provider Internal Medicine; Emergency Provider General Practice; PCP Internal Medicine
DX: A41.9 Sepsis, unspecified organism (principal); J18.9 Pneumonia, unspecified organism; N17.9 Acute kidney failure, unspecified; K50.00 Crohn's disease of small intestine without complications; F05 Delirium due to known physiological condition; J96.11 Chronic respiratory failure with hypoxia; K52.9 Noninfective gastroenteritis and colitis, unspecified; R19.00 Intra-abdominal and pelvic swelling, mass and lump, unspecified site; R65.20 Severe sepsis without septic shock; E86.1 Hypovolemia; E86.0 Dehydration; I95.9 Hypotension, unspecified; F03.90 Unspecified dementia, unspecified severity, without behavioral disturbance, psychotic disturbance, mood disturbance, and anxiety; I10 Essential (primary) hypertension; M89.8X9 Other specified disorders of bone, unspecified site; Z66 Do not resuscitate; Z99.81 Dependence on supplemental oxygen; Z86.711 Personal history of pulmonary embolism; Z79.01 Long term (current) use of anticoagulants
CPT/HCPCS: 36415; 70450; 71045; 74177; 80053; 81001; 83605; 83690; 83735; 84484; 85025; 85610; 85730; 87040; 87641; 93005; 93970; 96361; 96365; 96367; 99285; A9270; C1751; J0692; J0696; J1650; J1836; J7030; J7120; Q9967